=== PATIENT | male | born 1940 | race Caucasian/White ===

== ENCOUNTER 2018-06-27 08:10 | Emergency (ER) | payer MEDICARE, SELFPAY ==
[2018-06-27] VITALS (18 sets, daily range): BP systolic 143–192; BP diastolic 84–132; PULSE 71–100; RESP 14; TEMP 36.5; O2SAT 84–99
--- NOTE | 2018-06-27 08:41 | W.ED.GENAD ---
Discharge Plan Disposition Patient Disposition: HOME Condition: Improving Discharge Details Chief Complaint: GenMedical Clinical Impression: Hematuria Primary Care Provider: [facility] Lane ED Provider: Romel Cornelius Discharge Instructions Instructions: Hematuria (ED) Additional Instructions: Return for inability to urinate, the development of fever or any other concerns. Followup with Urology tomorrow as discussed with them. Medical Decision Making 78-year-old male presents with history of distant bladder cancer status post radiation therapy and history of intermittent episodes of bleeding over years time. Now with recurrent episodes intermittently over weeks time and worse over 2 days. He is afebrile and slightly hypertensive on exam. States he no longer takes medications including no longer use of metoprolol. He states that he has otherwise recently been well. Differential diagnosis includes acute cystitis, varicosity, mass, renal colic. Patient IV access established, referred for CT urogram and lab. Diagnostic laboratory essentially unremarkable with hematocrit of 46. Renal function shows creatinine of 1.0. Urinalysis is notable primarily for red blood cells. CT images reveal filling defect of bladder. Case discussed with on-call Urology, Emely Lopez. She agrees with urgent followup and patient seen in the ED. Lab Data Lab results reviewed: Yes I reviewed the patient's lab results. Laboratory Tests Range/Units 06/27/18 06/27/18 06/27/18 09:05 09:05 09:05 WBC (4.4-10.8) k/cumm 5.78 RBC (4.50-6.00) m/cumm 5.32 Hgb (13.5-17.5) g/dL 15.9 Hct (40.0-50.0) % 46.5 MCV (80-95) fL 87.4 MCH (27.0-33.0) pg 29.9 MCHC (32.0-36.0) g/dL 34.2 RDW (11.8-14.1) % 13.5 Plt Count (130-400) x1000/uL 211 MPV (8.0-11.0) fL 9.3 Immature Gran % 0.2 Neutrophils % 73.1 Lymphocytes % 18.0 Monocytes % 7.6 Eosinophils % 0.9 Basophils % 0.2 Absolute Neutrophils (1.2-6.7) k/cumm 4.23 Absolute Lymphocytes (1.2-3.4) k/cumm 1.04 L Absolute Monocytes (0.11-0.7) k/cumm 0.44 Absolute Eosinophils (0.0-0.7) k/cumm 0.05 Absolute Basophils (0.0-0.2) k/cumm 0.01 PT (9.3-10.8) sec 11.0 H INR (1.0-3.5) 1.1 Sodium (136-145) mmol/L 138 Potassium (3.5-5.1) mmol/L 3.8 Chloride (98-107) mmol/L 102 Carbon Dioxide (21.0-32.0) mmol/L 26.1 Anion Gap (3-11) mmol/L 9.9 BUN (7-18) mg/dL 19 H Creatinine (0.70-1.30) mg/dL 1.03 Estimated GFR/1.73 m2 (mL/min/1.73m2) >= 60.00 Glucose (70-100) mg/dL 97 Calcium (8.5-10.1) mg/dL 8.7 Total Bilirubin (0.2-1.0) mg/dL 0.6 AST (15-37) U/L 26 ALT (12-78) U/L 31 Alkaline Phosphatase (46-116) U/L 62 Total Protein (6.4-8.2) g/dL 7.2 Albumin (3.4-5.0) g/dL 3.4 HPI General Mode of arrival: ambulatory. Date/Time Provider Initiated Documentation: 06/27/18 08:14. Limitations to Documentation: no limitations. History of Present Illness 78 year old M presents to the emergency department with the chief complaint of Hematuria, described as moderate, and is localized to the pelvis and genitals. Patient reports no radiation. Patient started experiencing this day(s) and it has been intermittent. No relieving factors improve symptom(s), No exacerbating factors reported . Patient notes no other symptoms.. HPI Narrative: 78-year-old male with history of bladder cancer distantly, status post radiation therapy. He also has a history of bleed, most significantly when taking Plavix. He states that over months time he said intermittent episodes of bleeding/hematuria, often brought on by activity such as riding on a tractor. They have been intermittent and self resolved. Now with a day and a half intermittent episodes of bright red blood and clots in the urine. He has had mild weakness. No chest pain or lightheadedness. No syncope. Has not had a fever. Related Data Allergies Allergy/AdvReac Type Severity Reaction Status Date / Time No Known Allergies Allergy Unverified 06/27/18 08:25 General Stated Complaint: GenMedical CAROLINE: 3 Review of Systems Review of Systems 01/21 reviewed and otherwise neg PFSH Social History Smoking/Tobacco Use Status: Former Tobacco Use Exam Narrative Exam Narrative: GEN: awake, alert, oriented 3. Pleasant, well groomed, interactive. HEAD: Normocephalic, atraumatic ENT: Mucous membranes moist, oropharynx unremarkable, External ear exam unremarkable EYES: PERRL, EOMI NECK: Full ROM, no ALEX, no menigismus CHEST/RESP: Nontender, clear to auscultation bilateral, no wheeze/rhonchi/rales CARDIOVASCULAR: RRR, no murmur, rub nyla. 2+ Rad pulse bilateral ABDOMEN: Soft, nontender, no mass. +Bowel sounds EXT: Full ROM, no edema, no rash Neuro: Grossly normal neurologic exam, conversant, interactive. Psych: Speech fluent, thoughts congruent, affect normal Course Vital Signs Temperature 36.5 C 06/27/18 08:21 Pulse 92 H 06/27/18 08:21 Respiratory Rate 14 06/27/18 08:21 Blood Pressure 151/104 H 06/27/18 08:21 Pulse Oximetry 98 06/27/18 08:21 Temperature 36.5 C 06/27/18 08:21 Temperature Source Temporal Artery Scan 06/27/18 08:21 Pulse 92 H 06/27/18 08:21 Respiratory Rate 14 06/27/18 08:21 Respiratory Effort 06/27/18 08:27 Blood Pressure 151/104 H 06/27/18 08:21 Blood Pressure Position Sitting 06/27/18 08:21 Pulse Oximetry 98 06/27/18 08:21 Oxygen Delivery Method Room Air 06/27/18 08:21 Oxygen Flow Rate 0 06/27/18 08:21 Pain Level 6 06/27/18 08:21
--- NOTE | 2018-06-27 08:44 | ED.GENADUL_ITS ---
Discharge Plan Disposition Patient Disposition: HOME Condition: Improving Discharge Details Chief Complaint: GenMedical Clinical Impression: Hematuria Primary Care Provider: [facility] Lane ED Provider: Romel Cornelius Discharge Instructions Instructions: Hematuria (ED) Additional Instructions: Return for inability to urinate, the development of fever or any other concerns. Followup with Urology tomorrow as discussed with them. Medical Decision Making 78-year-old male presents with history of distant bladder cancer status post radiation therapy and history of intermittent episodes of bleeding over years time. Now with recurrent episodes intermittently over weeks time and worse over 2 days. He is afebrile and slightly hypertensive on exam. States he no longer takes medications including no longer use of metoprolol. He states that he has otherwise recently been well. Differential diagnosis includes acute cystitis, varicosity, mass, renal colic. Patient IV access established, referred for CT urogram and lab. Diagnostic laboratory essentially unremarkable with hematocrit of 46. Renal function shows creatinine of 1.0. Urinalysis is notable primarily for red blood cells. CT images reveal filling defect of bladder. Case discussed with on-call Urology , Emely Lopez. She agrees with urgent followup and patient seen in the ED. Lab Data Lab results reviewed: Yes I reviewed the patient's lab results. Laboratory Tests Range/Units 06/27/18 06/27/18 06/27/18 09:05 09:05 09:05 WBC (4.4-10.8) k/cumm 5.78 RBC (4.50-6.00) m/cumm 5.32 Hgb (13.5-17.5) g/dL 15.9 Hct (40.0-50.0) % 46.5 MCV (80-95) fL 87.4 MCH (27.0-33.0) pg 29.9 MCHC (32.0-36.0) g/dL 34.2 RDW (11.8-14.1) % 13.5 Plt Count (130-400) x1000/uL 211 MPV (8.0-11.0) fL 9.3 Immature Gran % 0.2 Neutrophils % 73.1 Lymphocytes % 18.0 Monocytes % 7.6 Eosinophils % 0.9 Basophils % 0.2 Absolute Neutrophils (1.2-6.7) k/cumm 4.23 Absolute Lymphocytes (1.2-3.4) k/cumm 1.04 L Absolute Monocytes (0.11-0.7) k/cumm 0.44 Absolute Eosinophils (0.0-0.7) k/cumm 0.05 Absolute Basophils (0.0-0.2) k/cumm 0.01 PT (9.3-10.8) sec 11.0 H INR (1.0-3.5) 1.1 Sodium (136-145) mmol/L 138 Potassium (3.5-5.1) mmol/L 3.8 Chloride (98-107) mmol/L 102 Carbon Dioxide (21.0-32.0) mmol/L 26.1 Anion Gap (3-11) mmol/L 9.9 BUN (7-18) mg/dL 19 H Creatinine (0.70-1.30) mg/dL 1.03 Estimated GFR/1.73 m2 (mL/min/1.73m2) >= 60.00 Glucose (70-100) mg/dL 97 Calcium (8.5-10.1) mg/dL 8.7 Total Bilirubin (0.2-1.0) mg/dL 0.6 AST (15-37) U/L 26 ALT (12-78) U/L 31 Alkaline Phosphatase (46-116) U/L 62 Total Protein (6.4-8.2) g/dL 7.2 Albumin (3.4-5.0) g/dL 3.4 HPI General Mode of arrival: ambulatory . Date/Time Provider Initiated Documentation: 06/27/18 08:14 . Limitations to Documentation: no limitations . History of Present Illness 78 year old M presents to the emergency department with the chief complaint of Hematuria, described as moderate, and is localized to the pelvis and genitals. Patient reports no radiation. Patient started experiencing this day(s) and it has been intermittent. No relieving factors improve symptom(s) , No exacerbating factors reported . Patient notes no other symptoms.. HPI Narrative: 78-year-old male with history of bladder cancer distantly, status post radiation therapy. He also has a history of bleed, most significantly when taking Plavix. He states that over months time he said intermittent episodes of bleeding/hematuria, often brought on by activity such as riding on a tractor. They have been intermittent and self resolved. Now with a day and a half intermittent episodes of bright red blood and clots in the urine. He has had mild weakness. No chest pain or lightheadedness. No syncope. Has not had a fever. Related Data Allergies Allergy/AdvReac Type Severity Reaction Status Date / Time No Known Allergies Allergy Unverified 06/27/18 08:25 General Stated Complaint: GenMedical CAROLINE: 3 Review of Systems Review of Systems 01/21 reviewed and otherwise neg PFSH Social History Smoking/Tobacco Use Status: Former Tobacco Use Exam Narrative Exam Narrative: GEN: awake, alert, oriented 3. Pleasant, well groomed, interactive. HEAD: Normocephalic, atraumatic ENT: Mucous membranes moist, oropharynx unremarkable, External ear exam unremarkable EYES: PERRL, EOMI NECK: Full ROM, no ALEX, no menigismus CHEST/RESP: Nontender, clear to auscultation bilateral, no wheeze/rhonchi/rales CARDIOVASCULAR: RRR, no murmur, rub nyla. 2+ Rad pulse bilateral ABDOMEN: Soft, nontender, no mass. +Bowel sounds EXT: Full ROM, no edema, no rash Neuro: Grossly normal neurologic exam, conversant, interactive. Psych: Speech fluent, thoughts congruent, affect normal Course Vital Signs Temperature 36.5 C 06/27/18 08:21 Pulse 92 H 06/27/18 08:21 Respiratory Rate 14 06/27/18 08:21 Blood Pressure 151/104 H 06/27/18 08:21 Pulse Oximetry 98 06/27/18 08:21 Temperature 36.5 C 06/27/18 08:21 Temperature Source Temporal Artery Scan 06/27/18 08:21 Pulse 92 H 06/27/18 08:21 Respiratory Rate 14 06/27/18 08:21 Respiratory Effort 06/27/18 08:27 Blood Pressure 151/104 H 06/27/18 08:21 Blood Pressure Position Sitting 06/27/18 08:21 Pulse Oximetry 98 06/27/18 08:21 Oxygen Delivery Method Room Air 06/27/18 08:21 Oxygen Flow Rate 0 06/27/18 08:21 Pain Level 6 06/27/18 08:21
[2018-06-27 09:17] LABS: Abs Immature Grans 0.01 k/cumm (0.0-0.09); Absolute Basophil Count 0.01 k/cumm (0.0-0.2); Absolute Eosinophil Count 0.05 k/cumm (0.0-0.7); Absolute Lymphocyte Count 1.04 k/cumm (1.2-3.4); Absolute Monocyte Count 0.44 k/cumm (0.11-0.7); Absolute Neutrophil Count 4.23 k/cumm (1.2-6.7); Basophils % 0.2; Eosinophils % 0.9; HCT 46.5 % (40.0-50.0); HGB 15.9 g/dL (13.5-17.5); Immature Grans % 0.2; Mean Corp. HGB Concentration 34.2 g/dL (32.0-36.0); Mean Corpuscular Hemoglobin 29.9 pg (27.0-33.0); Mean Corpuscular Volume 87.4 fL (80-95); Mean Platelet Volume 9.3 fL (8.0-11.0); Monocytes % 7.6; Neutrophils % 73.1; Platelet Count 211 x1000/uL (130-400); RBC 5.32 m/cumm (4.50-6.00); RBC Distribution Width 13.5 % (11.8-14.1); White Blood Cell Count 5.78 k/cumm (4.4-10.8)
[2018-06-27 09:27] LABS: INR 1.1 (1.0-3.5)
[2018-06-27 09:28] LABS: ALT 31 U/L (12-78); AST 26 U/L (15-37); Albumin 3.4 g/dL (3.4-5.0); Alkaline Phosphatase 62 U/L (46-116); Anion Gap 9.9 mmol/L (3-11); BUN 19 mg/dL (7-18); Bilirubin, Total 0.6 mg/dL (0.2-1.0); CO2 26.1 mmol/L (21.0-32.0); CREATININE 1.03 mg/dL (0.70-1.30); Calcium 8.7 mg/dL (8.5-10.1); Chloride 102 mmol/L (98-107); Glucose 97 mg/dL (70-100); Potassium 3.8 mmol/L (3.5-5.1); Sodium 138 mmol/L (136-145); Total Protein 7.2 g/dL (6.4-8.2)
[2018-06-27 10:05] LABS: Bilirubin Negative (Negative); Blood Large (Negative); Clarity Cloudy; Glucose Negative (Negative); Ketones Negative (Negative); Leukocyte Esterase Negative (Negative); Nitrite Negative (Negative); Specific Gravity 1.015 (1.005-1.025); Urobilinogen 0.2 EU/dL (Up TO 0.2); pH 8.5 (5-8)
[2018-06-27 10:09] LABS: RBC >50 (0-2)
[2018-06-27 10:10] LABS: C & S Indicated? No
--- NOTE | 2018-06-27 10:14 | DI.CT_ITS ---
SYMPTOMS/DIAGNOSIS: HEMATURIA, PREVIOUS H/O PROSTATE CA TREATED WITH RADIATION 5-[address] UROGRAM: CT urogram protocol was performed with noncontrast CT as well as venous phase and 7-minute delay phase abdominal and pelvic CT following intravenous infusion of 100 cc of Omnipaque 350. There is no evidence of urinary tract calcification. Images obtained through the lung bases show nonspecific interstitial prominence , presumably chronic. There are multiple low attenuation hepatic lesions consistent with cysts. The largest lesion is a left lobe hepatic lesion measuring about 21 mm in greatest diameter, which was significantly smaller on previous CT of October 2011. Additional CT recommended in six months to assess stability of this lesion. This does not appear to enhance on delay phase imaging. Spleen and pancreas are unremarkable. Gallbladder and bile ducts appear normal. Abdominal aorta is of normal diameter and no major vascular abnormality is seen. Small left fat-containing inguinal hernia noted. No significant abdominal or pelvic adenopathy seen. Appendix appears normal. No evidence of diverticulitis. No evidence of bowel obstruction. Adrenals appear normal bilaterally. There is symmetrical prompt renal cortical enhancement bilaterally. Multiple apparent tiny renal cortical cysts are noted. There is no evidence of hydronephrosis, nephrolithiasis or renal mass. Ureters are unremarkable in appearance. There is an irregular soft tissue density mass of the dependent portion of the urinary bladder, which may represent clot versus mass. Prostate is enlarged and the patient appears to have prostatic radiotherapy seeds in place. CONCLUSION: Intraluminal filling defect of the bladder in a patient with known gross hematuria, bladder wall mass versus thrombus. Correlation with cystoscopy recommended. No additional urinary tract findings.
[2018-06-27] MEDS: Omnipaque 350 MG/ML 100 ML BTL IJ (10:16)
[2018-06-27] MEDS: Lactated Ringers 1,000 ML 125 ML IV (10:22)
--- NOTE | 2018-06-27 12:17 | NUR.NOTE ---
Urology is at the bedside.
--- NOTE | 2018-06-28 08:05 | W.UROLOGYCON ---
Date of service: 06/27/18 Time of Service: 13:00 History of Present Illness Chief Complaint: Gross hematuria Narrative: Mr Boateng is an 78-year-old male in seen currently in the emergency room by Dr. Cornelius. Dr. Cornelius asks that I consult about his gross hematuria and his CT imaging. Patient reports that he is a individual who has a history of prostate cancer that over the past few months has had some intermittent bleeding pink tinge to his urine especially after being off of a tractor. However over the last few days he has had gross hematuria in the form of clots. No retention reported. He denies fevers, chills, abnormal weight loss, abdominal pain, or long bone pain. He notes that he was originally treated for his prostate cancer through [facility] in [place]. 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 Reviewed elsewhere in the chart Medications Reviewed elsewhere in the chart -reports he has not taken any prescribed medications for at least the last 2 months and has not used ASA or NSAIDs Family Hx No family history of urological matters Consults Consult date: 06/27/18 Requesting physician: Romel Cornelius Review of Systems Constitutional Denies chills, Denies fatigue, Denies fever(s) and Denies weight loss Cardiovascular Denies chest pain and Denies dyspnea Respiratory Denies dyspnea Gastrointestinal Denies abdominal pain, Denies constipation and Denies diarrhea Genitourinary Reports hematuria, Denies dysuria, Denies flank pain, Denies nocturia, Reports urinary frequency, Reports urinary hesitancy, Denies urinary incontinence and Reports urinary urgency Endocrine Denies fatigue [facility] Social History Smoking/Tobacco Use Status: Former Tobacco Use Exam Const Orientation: alert, awake and oriented x3 Eyes Sclera: sclerae normal Resp Effort & Inspection: normal respiratory effort GI Inspection: normal to inspection and non-distended Results Last Vital Signs Temp 97.7 F 06/27/18 08:21 Pulse 86 06/27/18 12:16 Resp 14 06/27/18 08:21 BP 192/91 H 06/27/18 12:16 Pulse Ox 99 06/27/18 12:20 Labs : 06/27/18 09:05 11/14/18 09:05 Laboratory Results - last 24 hr 06/27/18 06/27/18 06/27/18 09:05 09:05 09:05 WBC 5.78 RBC 5.32 Hgb 15.9 Hct 46.5 MCV 87.4 MCH 29.9 MCHC 34.2 RDW 13.5 Plt Count 211 MPV 9.3 Immature Gran % 0.2 Neutrophils % 73.1 Lymphocytes % 18.0 Monocytes % 7.6 Eosinophils % 0.9 Basophils % 0.2 Absolute Neutrophils 4.23 Absolute Lymphocytes 1.04 L Absolute Monocytes 0.44 Absolute Eosinophils 0.05 Absolute Basophils 0.01 PT 11.0 H INR 1.1 Sodium 138 Potassium 3.8 Chloride 102 Carbon Dioxide 26.1 Anion Gap 9.9 BUN 19 H Creatinine 1.03 Estimated GFR/1.73 m2 >= 60.00 Glucose 97 Calcium 8.7 Total Bilirubin 0.6 AST 26 ALT 31 Alkaline Phosphatase 62 Total Protein 7.2 Albumin 3.4 Urine Color Urine Clarity Urine pH Ur Specific [place] Urine Protein Urine Ketones Urine Blood Urine Nitrite Urine Bilirubin Urine Urobilinogen Ur Leukocyte Esterase Urine RBC Urine WBC Ur Epithelial Cells Urine Crystals Urine Bacteria Urine Mucus Ur Culture Indicated? Urine Glucose Patient ABO/Rh Antibody Screen 06/27/18 06/27/18 09:05 09:45 WBC RBC Hgb Hct MCV MCH MCHC RDW Plt Count MPV Immature Gran % Neutrophils % Lymphocytes % Monocytes % Eosinophils % Basophils % Absolute Neutrophils Absolute Lymphocytes Absolute Monocytes Absolute Eosinophils Absolute Basophils PT INR Sodium Potassium Chloride Carbon Dioxide Anion Gap BUN Creatinine Estimated GFR/1.73 m2 Glucose Calcium Total Bilirubin AST ALT Alkaline Phosphatase Total Protein Albumin Urine Color Red Urine Clarity Cloudy Urine pH 8.5 H Ur Specific [place] 1.015 Urine Protein >=300 H Urine Ketones Negative Urine Blood Large H Urine Nitrite Negative Urine Bilirubin Negative Urine Urobilinogen 0.2 Ur Leukocyte Esterase Negative Urine RBC >50 H Urine WBC Ur Epithelial Cells Urine Crystals Urine Bacteria Urine Mucus Ur Culture Indicated? No Urine Glucose Negative Patient ABO/Rh O Positive Antibody Screen Negative Assessment and Plan (1) Gross hematuria: Current visit: No Status: Acute Greater than 50% of this 30 min consult was in counseling and coordination of the assessment/plan. Discussed with Romel and his partner that was present in the emergency room that his history of prostate cancer that was treated by radiation therapy can cause bladder cancer thus having a cystoscopy to determine the gross hematuria or questionable bladder wall mass versus thrombosis that was found on CT needs to be performed. Also we discussed that the filling defect of the bladder needs to be evaluated. He is interested in doing this as soon as possible. We were able to offer him an outpatient OR procedure time for tomorrow , June 28. Preop paperwork was completed and nurse to add him to the scheduling block per Dr. Bonner tomorrow. Dr. Cornelius the emergency room physician was notified of our discussion and plans on discharging the patient since he is stable without retention. I did discuss with patient of when he needs to come back to the emergency room for acute matters that cannot wait till tomorrow's procedure.
--- NOTE | 2018-06-28 08:17 | UCONE_ITS ---
Date of service: 06/27/18 Time of Service: 13:00 History of Present Illness Chief Complaint: Gross hematuria Narrative: Mr Boateng is an 78-year-old male in seen currently in the emergency room by Dr. Cornelius. Dr. Cornelius asks that I consult about his gross hematuria and his CT imaging. Patient reports that he is a individual who has a history of prostate cancer that over the past few months has had some intermittent bleeding pink tinge to his urine especially after being off of a tractor. However over the last few days he has had gross hematuria in the form of clots. No retention reported. He denies fevers, chills, abnormal weight loss, abdominal pain, or long bone pain. He notes that he was originally treated for his prostate cancer through [facility] in [place]. 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 Reviewed elsewhere in the chart Medications Reviewed elsewhere in the chart -reports he has not taken any prescribed medications for at least the last 2 months and has not used ASA or NSAIDs Family Hx No family history of urological matters Consults Consult date: 06/27/18 Requesting physician: Romel Cornelius Review of Systems Constitutional Denies chills, Denies fatigue, Denies fever(s) and Denies weight loss Cardiovascular Denies chest pain and Denies dyspnea Respiratory Denies dyspnea Gastrointestinal Denies abdominal pain, Denies constipation and Denies diarrhea Genitourinary Reports hematuria, Denies dysuria, Denies flank pain, Denies nocturia, Reports urinary frequency, Reports urinary hesitancy, Denies urinary incontinence and Reports urinary urgency Endocrine Denies fatigue [facility] Social History Smoking/Tobacco Use Status: Former Tobacco Use Exam Const Orientation: alert, awake and oriented x3 Eyes Sclera: sclerae normal Resp Effort & Inspection: normal respiratory effort GI Inspection: normal to inspection and non-distended Results Last Vital Signs Temp 97.7 F 06/27/18 08:21 Pulse 86 06/27/18 12:16 Resp 14 06/27/18 08:21 BP 192/91 H 06/27/18 12:16 Pulse Ox 99 06/27/18 12:20 Labs : 06/27/18 09:05 11/14/18 09:05 Laboratory Results - last 24 hr 06/27/18 06/27/18 06/27/18 09:05 09:05 09:05 WBC 5.78 RBC 5.32 Hgb 15.9 Hct 46.5 MCV 87.4 MCH 29.9 MCHC 34.2 RDW 13.5 Plt Count 211 MPV 9.3 Immature Gran % 0.2 Neutrophils % 73.1 Lymphocytes % 18.0 Monocytes % 7.6 Eosinophils % 0.9 Basophils % 0.2 Absolute Neutrophils 4.23 Absolute Lymphocytes 1.04 L Absolute Monocytes 0.44 Absolute Eosinophils 0.05 Absolute Basophils 0.01 PT 11.0 H INR 1.1 Sodium 138 Potassium 3.8 Chloride 102 Carbon Dioxide 26.1 Anion Gap 9.9 BUN 19 H Creatinine 1.03 Estimated GFR/1.73 m2 >= 60.00 Glucose 97 Calcium 8.7 Total Bilirubin 0.6 AST 26 ALT 31 Alkaline Phosphatase 62 Total Protein 7.2 Albumin 3.4 Urine Color Urine Clarity Urine pH Ur Specific [place] Urine Protein Urine Ketones Urine Blood Urine Nitrite Urine Bilirubin Urine Urobilinogen Ur Leukocyte Esterase Urine RBC Urine WBC Ur Epithelial Cells Urine Crystals Urine Bacteria Urine Mucus Ur Culture Indicated? Urine Glucose Patient ABO/Rh Antibody Screen 06/27/18 06/27/18 09:05 09:45 WBC RBC Hgb Hct MCV MCH MCHC RDW Plt Count MPV Immature Gran % Neutrophils % Lymphocytes % Monocytes % Eosinophils % Basophils % Absolute Neutrophils Absolute Lymphocytes Absolute Monocytes Absolute Eosinophils Absolute Basophils PT INR Sodium Potassium Chloride Carbon Dioxide Anion Gap BUN Creatinine Estimated GFR/1.73 m2 Glucose Calcium Total Bilirubin AST ALT Alkaline Phosphatase Total Protein Albumin Urine Color Red Urine Clarity Cloudy Urine pH 8.5 H Ur Specific [place] 1.015 Urine Protein >=300 H Urine Ketones Negative Urine Blood Large H Urine Nitrite Negative Urine Bilirubin Negative Urine Urobilinogen 0.2 Ur Leukocyte Esterase Negative Urine RBC >50 H Urine WBC Ur Epithelial Cells Urine Crystals Urine Bacteria Urine Mucus Ur Culture Indicated? No Urine Glucose Negative Patient ABO/Rh O Positive Antibody Screen Negative Assessment and Plan (1) Gross hematuria: Current visit: No Status: Acute Greater than 50% of this 30 min consult was in counseling and coordination of the assessment/plan. Discussed with Romel and his partner that was present in the emergency room that his history of prostate cancer that was treated by radiation therapy can cause bladder cancer thus having a cystoscopy to determine the gross hematuria or questionable bladder wall mass versus thrombosis that was found on CT needs to be performed. Also we discussed that the filling defect of the bladder needs to be evaluated. He is interested in doing this as soon as possible. We were able to offer him an outpatient OR procedure time for tomorrow , June 28. Preop paperwork was completed and nurse to add him to the scheduling block per Dr. Bonner tomorrow. Dr. Cornelius the emergency room physician was notified of our discussion and plans on discharging the patient since he is stable without retention. I did discuss with patient of when he needs to come back to the emergency room for acute matters that cannot wait till tomorrow's procedure.
== END 2018-06-27 12:42 | disposition home or self-care (01) ==
PROVIDERS: Emergency Provider Emergency Medicine; PCP Nurse Practitioner Family
DX: R31.9 Hematuria, unspecified (principal); R93.41 Abnormal radiologic findings on diagnostic imaging of renal pelvis, ureter, or bladder; Z85.51 Personal history of malignant neoplasm of bladder; I10 Essential (primary) hypertension
CPT/HCPCS: 36415; 80053; 86850; 86900; 86901; 96360; 96361; 99285; 74178; 81003; 81015; 85025; 85610; 99284; J3490

== ENCOUNTER 2018-06-27 16:26 | Emergency (ER) | payer MEDICARE, BC, SELFPAY ==
--- NOTE | 2018-06-27 16:33 | W.ED.GENAD ---
Discharge Plan Disposition Patient Disposition: HOME Condition: Improving Discharge Details Chief Complaint: Urinary Clinical Impression: Hematuria Reason For Visit: unable to void Primary Care Provider: [facility] Lane ED Provider: Romel Cornelius Discharge Instructions Instructions: Hematuria (ED) Additional Instructions: I discussed your case with Dr. Bonner this evening. He recommends that you return for recurrent inability to urinate, otherwise we will discharge you to home and plan on you returning for your operation in the morning. Medical Decision Making 78-year-old male presents to the ER after visit with myself this morning for recurrent hematuria. In the earlier visit the patient had laboratories, CT urogram, and a urology consult with plan for outpatient evaluation in the OR tomorrow morning with Dr. Bonner. This afternoon he developed urinary retention that resolved with production of a bloody urine. He arrives improved, with mild hypertension, and approximately 200-250 cc urinary retention. The patient no longer has urge to urinate. I discussed the case with Dr. Bonner and we reviewed the earlier diagnostic studies. He recommends no further intervention at this time. Patient will return for recurrent urinary retention or any other acute concerns, he will otherwise present for scheduled outpatient surgery tomorrow. HPI General Mode of arrival: ambulatory. Date/Time Provider Initiated Documentation: 06/27/18 16:32. Limitations to Documentation: no limitations. Information obtained by: patient. History of Present Illness 78 year old M presents to the emergency department with the chief complaint of Transient urinary retention, described as moderate, Quality is described as dull, and is localized to the abdomen. Patient reports no radiation. and it has been intermittent and now resolved. other things that improve symptom(s), (Urination) No exacerbating factors reported . HPI Narrative: Pleasant 78-year-old male seen earlier in the day by myself with hematuria. He had a workup including laboratory, CT urogram, urology consult and has been scheduled for outpatient cystoscopy in the OR tomorrow. He states that this afternoon he developed transient urinary retention with cramping lower abdominal pain that resolved after he was able to urinate. He now feels improved Related Data Allergies Allergy/AdvReac Type Severity Reaction Status Date / Time No Known Allergies Allergy Unverified 06/27/18 08:25 General CAROLINE: 3 Review of Systems Review of Systems For systems reviewed and otherwise negative Exam Narrative Exam Narrative: GEN: awake, alert, oriented 3. Pleasant, well groomed, interactive. HEAD: Normocephalic, atraumatic ENT: Mucous membranes moist, oropharynx unremarkable, External ear exam unremarkable EYES: PERRL, EOMI NECK: Full ROM, no ALEX, no menigismus CHEST/RESP: Nontender, clear to auscultation bilateral, no wheeze/rhonchi/rales CARDIOVASCULAR: RRR, no murmur, rub nyla. 2+ Rad pulse bilateral ABDOMEN: Soft, nontender, no mass. +Bowel sounds EXT: Full ROM, no edema, no rash Neuro: Grossly normal neurologic exam, conversant, interactive. Psych: Speech fluent, thoughts congruent, affect normal
[2018-06-27 16:36] VITALS: BP 179/100; PULSE 78; RESP 18; TEMP 36.3; O2SAT 99
--- NOTE | 2018-06-27 16:36 | ED.GENADUL_ITS ---
Discharge Plan Disposition Patient Disposition: HOME Condition: Improving Discharge Details Chief Complaint: Urinary Clinical Impression: Hematuria Reason For Visit: unable to void Primary Care Provider: [facility] Lane ED Provider: Romel Cornelius Discharge Instructions Instructions: Hematuria (ED) Additional Instructions: I discussed your case with Dr. Bonner this evening. He recommends that you return for recurrent inability to urinate, otherwise we will discharge you to home and plan on you returning for your operation in the morning. Medical Decision Making 78-year-old male presents to the ER after visit with myself this morning for recurrent hematuria. In the earlier visit the patient had laboratories, CT urogram, and a urology consult with plan for outpatient evaluation in the OR tomorrow morning with Dr. Bonner. This afternoon he developed urinary retention that resolved with production of a bloody urine. He arrives improved, with mild hypertension, and approximately 200-250 cc urinary retention. The patient no longer has urge to urinate. I discussed the case with Dr. Bonner and we reviewed the earlier diagnostic studies. He recommends no further intervention at this time. Patient will return for recurrent urinary retention or any other acute concerns, he will otherwise present for scheduled outpatient surgery tomorrow. HPI General Mode of arrival: ambulatory . Date/Time Provider Initiated Documentation: 06/27/18 16:32 . Limitations to Documentation: no limitations . Information obtained by: patient . History of Present Illness 78 year old M presents to the emergency department with the chief complaint of Transient urinary retention, described as moderate, Quality is described as dull, and is localized to the abdomen. Patient reports no radiation. and it has been intermittent and now resolved. other things that improve symptom(s ), (Urination) No exacerbating factors reported . HPI Narrative: Pleasant 78-year-old male seen earlier in the day by myself with hematuria. He had a workup including laboratory, CT urogram, urology consult and has been scheduled for outpatient cystoscopy in the OR tomorrow. He states that this afternoon he developed transient urinary retention with cramping lower abdominal pain that resolved after he was able to urinate. He now feels improved Related Data Allergies Allergy/AdvReac Type Severity Reaction Status Date / Time No Known Allergies Allergy Unverified 06/27/18 08:25 General CAROLINE: 3 Review of Systems Review of Systems For systems reviewed and otherwise negative Exam Narrative Exam Narrative: GEN: awake, alert, oriented 3. Pleasant, well groomed, interactive. HEAD: Normocephalic, atraumatic ENT: Mucous membranes moist, oropharynx unremarkable, External ear exam unremarkable EYES: PERRL, EOMI NECK: Full ROM, no ALEX, no menigismus CHEST/RESP: Nontender, clear to auscultation bilateral, no wheeze/rhonchi/rales CARDIOVASCULAR: RRR, no murmur, rub nyla. 2+ Rad pulse bilateral ABDOMEN: Soft, nontender, no mass. +Bowel sounds EXT: Full ROM, no edema, no rash Neuro: Grossly normal neurologic exam, conversant, interactive. Psych: Speech fluent, thoughts congruent, affect normal
[2018-06-27 17:00] VITALS: BP 180/95; PULSE 78; RESP 15; TEMP 37; O2SAT 98
== END 2018-06-27 17:34 | disposition home or self-care (01) ==
PROVIDERS: Emergency Provider Emergency Medicine; PCP Nurse Practitioner Family
DX: R31.9 Hematuria, unspecified (principal)
CPT/HCPCS: 36415; 80053; 86850; 86900; 86901; 96360; 96361; 99281; 99285; 74178; 81003; 81015; 85025; 85610; 99284; J3490

== ENCOUNTER 2018-06-28 09:39 | Day surgery (SDC) | payer MEDICARE, BC, SELFPAY ==
[2018-06-28 10:00] VITALS: BP 169/78; PULSE 78; RESP 16; TEMP 36.8; O2SAT 100
[2018-06-28] MEDS: Lactated Ringers 1,000 ML 80 ML IV (10:40)
[2018-06-28] MEDS: CIPROFLOXACIN 400 MG/200 ML BAG 200 MG IVPB (11:32)
--- NOTE | 2018-06-28 11:57 | W.PM.HP.N ---
Date of service: 06/28/18 Time of Service: 11:57 Assessment and Plan (1) Clot retention of urine: Current visit: Yes Status: Acute We will proceed with cystoscopy and clot evacuation. If we see any abnormality that might lead to recurrent bleeding and clots, we will either biopsy, resecte or fulgurate that area. History of Present Illness Chief Complaint: Clot retention Narrative: This is an 78-year-old gentleman who has a history of adenocarcinoma of the prostate. He was treated with external beam radiation about 14 years ago. His PSA has remained stable since then. He has had intermittent gross hematuria especially after riding on a tractor or riding mower. More recently, he developed clot retention. He had difficulty emptying his bladder but ultimately was able to pass large amounts of clots. He was seen in the emergency room. He had a CT urogram which demonstrated a filling defect within the bladder. He presents now for cystoscopy with clot evacuation. If we find a mucosal base filling defect in the bladder we will resected or cauterized. He is not on any type of any coagulants. He is a past smoker but quit over 20 years ago Review of Systems Review of Systems No fevers or chills No dysphasia. He has double vision and decreased depth perception from the left eye No diabetes or thyroid dysfunction No shortness of breath, cough or hemoptysis No chest pain or palpitations No nausea, vomiting, hepatitis, ulcers, jaundice, diarrhea or constipation No seizures, strokes or peripheral neuropathy. He does have of dizziness that he attributes to his visual difficulty No bleeding disorders or anemia No gout or arthralgia Meds Allergies Allergy/AdvReac Type Severity Reaction Status Date / Time No Known Allergies Allergy Unverified 06/27/18 08:25 Exam Narrative Exam Narrative: He is a very pleasant gentleman in no current distress. He is cooperative with the exam. Skin is warm and dry. He does not appear septic or toxic His vital signs are documented elsewhere in the chart. His neck is supple with no masses. His lungs are clear Cardiac exam shows a regular rate but he is pacemaker dependent His abdomen is soft with no masses There is no edema in the lower extremities. No amputations or deformities are found He is awake, alert and oriented Results Last Vital Signs Temp 36.8 C 06/28/18 10:00 Pulse 78 06/28/18 10:00 Resp 16 06/28/18 10:00 BP 169/78 H 06/28/18 10:00 Pulse Ox 100 06/28/18 10:00
[2018-06-28] MEDS: Lidocaine 2% Jelly 6 ML SYR (12:56)
--- NOTE | 2018-06-28 13:16 | W.PM.DSUDISC ---
Discharge Plan Disposition Patient Disposition: HOME Condition: Stable Discharge Details Reason For Visit: GROSS HEMATURIA Attending Provider: David Bonner Primary Care Provider: Lizette Zamora V Discharge Instructions Additional Instructions: Tang to leg bag Drink lots of fluid F/U early next week to have catheter removed Activity:: Activity as Tolerated Diet:: As Tolerated Discharge Orders Discharge Orders: Discharge Order (Routine); Ordered 06/28/18 Ordered By: David Bonner DS: Diagnosis Discharge Diagnosis (1) Clot retention of urine: Status: Acute
[2018-06-28 14:10] VITALS: BP 150/86; PULSE 78; RESP 16; TEMP 36.7; O2SAT 99
--- NOTE | 2018-06-28 16:23 | ROE_ITS ---
DATE OF OPERATION: June 28, 2018 PREOPERATIVE DIAGNOSIS: Urinary clot retention. POSTOPERATIVE DIAGNOSIS: Urinary clot retention. PROCEDURE: Cystoscopy with clot evacuation. SURGEON: David Bonner M.D. ANESTHESIA: MAC with local. COMPLICATIONS: None. HISTORY: This is an 78-year-old gentleman who has a history of adenocarcinoma of the prostate. He h as been treated with external beam radiation in the past. He does have a distant history of a urinary tract infection that was related to urethral stricture di sease. He has had an internal urethrotomy about four years ago. Since that time his stream has been quite good. He has had intermittent gross hematuria, especially associated with physical activity. Yesterday he developed hematuria with clots. He was unable to void. He underwent a CT urogram through the [facility]. The scan showed normal kidneys but there was a large filling defect within the bladder con sistent with clot. He presents now for cystoscopy with clot evacuation and possible fulguration or r esection of any underlying bleeding or tumor. OPERATIVE REPORT: The patient was brought to the Operating Room on 06/28/18. He was given a dose of antibiotics. After successful induction of monitored anesthesia care, he was placed in the dorsal lithotomy positi on. His genitalia was prepped and draped. A 24 Serbian resectoscope sheath was passed through the urethra into the bladder. We used an internal visual obturator and found no evidence of residual stricture disease. Once the bladder neck was entered, we identified a moderate amount of clot. The clot was evacuated u sing a Cristian syringe. We then inspected the remainder of the bladder and found some diffuse erythema but no evidence of pap illary or nodular tumors. No active bleeding was found. We then filled the bladder with irrigant. We decided to leave a urethral catheter in place until the bleeding settles. We passed a guidewire through the sheath of the resectoscope and removed the scop e. We passed an 18 Serbian nondalton-tip catheter over the wire. We inflated the catheter balloon with 10 cc of sterile water and hooked the catheter to gravity drainage. He tolerated this procedure well with no complications. He will return to our office early next week to have his catheter removed. cc: Daphnie ZimmerP.
== END 2018-06-28 14:38 | disposition home or self-care (01) ==
PROVIDERS: PCP Family Medicine; Visit Provider Urology
PROC: 0TBB8ZZ Excision of Bladder, Via Natural or Artificial Opening Endoscopic (ICD-10-PCS; CPT 52001; principal; 2018-06-28 13:30)
DX: N32.89 Other specified disorders of bladder (principal); R31.9 Hematuria, unspecified; Z85.46 Personal history of malignant neoplasm of prostate; Z92.3 Personal history of irradiation
CPT/HCPCS: 52001; 36415; 51701; 80048; 96360; 99281; 99283; NC; 85025; 85610; 85730; J0744

== ENCOUNTER 2018-06-28 19:15 | Emergency (ER) | payer MEDICARE, BC, SELFPAY ==
--- NOTE | 2018-06-28 19:24 | W.ED.GENAD ---
Discharge Plan Disposition Disposition: HOME Condition: Good Discharge Details Chief Complaint: Urinary Clinical Impression: Perez catheter problem, Dehydration, Perez catheter in place Primary Care Provider: Lizette Zamora V ED Provider: Abraham Stevens Home Meds and New Rx's Prescriptions: No Action nitrofurantoin macrocrystal [Macrodantin] 50 mg capsule 50 mg PO DAILY Qty: 7 RF: 0 Discharge Instructions Instructions: Perez Catheter Placement and Care (ED) Medical Decision Making 78 yo male with hx of prostate cancer who had recently had urinary retention secondary to clots and required perez, who underwent cystoscopy today with Dr. Bonner which showed no recurrent tumors he could see and no active bleeding, d/c'd him with perez. He states it hasn't been draining since and has suprapubic discomfort. Has some bloody urine in his perez bag, will have nursing try to irrigate nursing flushed but did not have significant return of urine. Will give IVF and check for possible anthony, could have dehydration from the procedure he had today pt now having clear urine and has no complaints, will d/c home Differential Diagnosis clogged perez, hematuria Lab Data Lab results reviewed: Yes I reviewed the patient's lab results. HPI General Mode of arrival: ambulatory. Date/Time Provider Initiated Documentation: 06/28/18 19:16. Limitations to Documentation: no limitations. Information obtained by: patient. History of Present Illness 78 year old M presents to the emergency department with the chief complaint of perez not draining, Patient started experiencing this hour(s) (5) and it has been constant. No relieving factors improve symptom(s), Patient did receive the following treatments prior to arrival, none Related Data Home Medications Medication Instructions Recorded Confirmed nitrofurantoin macrocrystal 50 mg 50 mg PO DAILY #7 cap 06/28/18 06/28/18 capsule Previous Rx's Medication Instructions Recorded nitrofurantoin macrocrystal 50 mg 50 mg PO DAILY #7 cap 06/28/18 capsule Allergies Allergy/AdvReac Type Severity Reaction Status Date / Time No Known Allergies Allergy Unverified 06/28/18 19:39 General CAROLINE: 3 Review of Systems Review of Systems All systems reviewed & are unremarkable except as noted in HPI and below Constitutional Denies chills, Denies fever(s) and Denies weakness Eyes Denies loss of vision ENT Denies change in voice Cardiovascular Denies chest pain and Denies dyspnea Respiratory Denies dyspnea Gastrointestinal Denies nausea and Denies vomiting Genitourinary Denies dysuria Musculoskeletal Denies joint swelling Integumentary/Breasts Denies rash Neurologic Denies loss of vision and Denies weakness Psychiatric Denies depression Endocrine Denies cold intolerance and Denies heat intolerance Allergic/Immunologic Denies urticaria Exam Const General: no acute distress Orientation: alert HENMT Head: normal to inspection Ears: external ears normal General nose exam: external nose normal Mouth: moist mucous membranes Eyes General: appearance normal, both eyes and all related structures Neck Neck: normal visual inspection Resp Effort & Inspection: normal respiratory effort and able to speak in complete sentences Cardio Rate: regular rate Skin General skin exam: no rashes or lesions noted Neuro General: alert and oriented x3 Extrem General: normal to inspection Psych Mental Status: mental status grossly normal
--- NOTE | 2018-06-28 19:27 | ED.GENADUL_ITS ---
Discharge Plan Disposition Disposition: HOME Condition: Good Discharge Details Chief Complaint: Urinary Clinical Impression: Perez catheter problem, Dehydration, Perez catheter in place Primary Care Provider: Lizette Zamora V ED Provider: Abraham Stevens Home Meds and New Rx's Prescriptions: No Action nitrofurantoin macrocrystal [Macrodantin] 50 mg capsule 50 mg PO DAILY Qty: 7 RF: 0 Discharge Instructions Instructions: Perez Catheter Placement and Care (ED) Medical Decision Making 78 yo male with hx of prostate cancer who had recently had urinary retention secondary to clots and required perez, who underwent cystoscopy today with Dr. Bonner which showed no recurrent tumors he could see and no active bleeding, d/c' d him with perez. He states it hasn't been draining since and has suprapubic discomfort. Has some bloody urine in his perez bag, will have nursing try to irrigate nursing flushed but did not have significant return of urine. Will give IVF and check for possible anthony, could have dehydration from the procedure he had today pt now having clear urine and has no complaints, will d/c home Differential Diagnosis clogged perez, hematuria Lab Data Lab results reviewed: Yes I reviewed the patient's lab results. HPI General Mode of arrival: ambulatory . Date/Time Provider Initiated Documentation: 06/28/18 19:16 . Limitations to Documentation: no limitations . Information obtained by: patient . History of Present Illness 78 year old M presents to the emergency department with the chief complaint of perez not draining, Patient started experiencing this hour(s) (5) and it has been constant. No relieving factors improve symptom(s), Patient did receive the following treatments prior to arrival, none Related Data Home Medications Medication Instructions Recorded Confirmed nitrofurantoin macrocrystal 50 mg 50 mg PO DAILY #7 cap 06/28/18 06/28/18 capsule Previous Rx's Medication Instructions Recorded nitrofurantoin macrocrystal 50 mg 50 mg PO DAILY #7 cap 06/28/18 capsule Allergies Allergy/AdvReac Type Severity Reaction Status Date / Time No Known Allergies Allergy Unverified 06/28/18 19:39 General CAROLINE: 3 Review of Systems Review of Systems All systems reviewed & are unremarkable except as noted in HPI and below Constitutional Denies chills, Denies fever(s) and Denies weakness Eyes Denies loss of vision ENT Denies change in voice Cardiovascular Denies chest pain and Denies dyspnea Respiratory Denies dyspnea Gastrointestinal Denies nausea and Denies vomiting Genitourinary Denies dysuria Musculoskeletal Denies joint swelling Integumentary/Breasts Denies rash Neurologic Denies loss of vision and Denies weakness Psychiatric Denies depression Endocrine Denies cold intolerance and Denies heat intolerance Allergic/Immunologic Denies urticaria Exam Const General: no acute distress Orientation: alert HENMT Head: normal to inspection Ears: external ears normal General nose exam: external nose normal Mouth: moist mucous membranes Eyes General: appearance normal, both eyes and all related structures Neck Neck: normal visual inspection Resp Effort & Inspection: normal respiratory effort and able to speak in complete sentences Cardio Rate: regular rate Skin General skin exam: no rashes or lesions noted Neuro General: alert and oriented x3 Extrem General: normal to inspection Psych Mental Status: mental status grossly normal
[2018-06-28 19:37] VITALS: BP 156/80; PULSE 87; RESP 20; TEMP 36.8; O2SAT 98
[2018-06-28 20:03] LABS: Abs Immature Grans 0.01 k/cumm (0.0-0.09); Absolute Basophil Count 0.02 k/cumm (0.0-0.2); Absolute Eosinophil Count 0.08 k/cumm (0.0-0.7); Absolute Lymphocyte Count 1.49 k/cumm (1.2-3.4); Absolute Monocyte Count 0.72 k/cumm (0.11-0.7); Absolute Neutrophil Count 5.81 k/cumm (1.2-6.7); Basophils % 0.2; HCT 43.2 % (40.0-50.0); HGB 14.9 g/dL (13.5-17.5); Immature Grans % 0.1; Lymphocytes % 18.3; Mean Corp. HGB Concentration 34.5 g/dL (32.0-36.0); Mean Corpuscular Hemoglobin 30.2 pg (27.0-33.0); Mean Corpuscular Volume 87.4 fL (80-95); Mean Platelet Volume 9.4 fL (8.0-11.0); Monocytes % 8.9; Neutrophils % 71.5; Platelet Count 210 x1000/uL (130-400); RBC 4.94 m/cumm (4.50-6.00); RBC Distribution Width 13.5 % (11.8-14.1); White Blood Cell Count 8.13 k/cumm (4.4-10.8)
[2018-06-28 20:09] LABS: Anion Gap 10.2 mmol/L (3-11); BUN 19 mg/dL (7-18); CO2 24.8 mmol/L (21.0-32.0); CREATININE 1.13 mg/dL (0.70-1.30); Calcium 8.9 mg/dL (8.5-10.1); Chloride 104 mmol/L (98-107); Glucose 148 mg/dL (70-100); Potassium 3.7 mmol/L (3.5-5.1); Sodium 139 mmol/L (136-145)
[2018-06-28] MEDS: Normal Saline 1,000 ML 1000 ML IV (20:10)
[2018-06-28 21:31] LABS: INR 1.2 (1.0-3.5); PTT Activated 25.1 sec (21.0-31.4); Prothrombin Time 11.5 sec (9.3-10.8)
[2018-06-28 23:58] VITALS: BP 156/80; PULSE 87; RESP 20; TEMP 36.8; O2SAT 98
== END 2018-06-28 20:42 | disposition home or self-care (01) ==
LOC: ER 20:43
PROVIDERS: Emergency Provider Emergency Medicine; PCP Family Medicine
DX: E86.0 Dehydration (principal); R33.8 Other retention of urine; Z96.0 Presence of urogenital implants
CPT/HCPCS: 36415; 51701; 80048; 96360; 99281; 99283; 85025; 85610; 85730

== ENCOUNTER → 2018-07-02 08:06 | Outpatient (BNVA) | payer MEDICARE, BC, SELFPAY | PROVIDERS: PCP Family Medicine; Visit Provider Nurse Practitioner Gerontology | DX: R33.8 Other retention of urine (principal) | CPT/HCPCS: 99213 ==

== ENCOUNTER → 2018-07-03 09:21 | Outpatient (BNVA) | payer MEDICARE, BC, SELFPAY | PROVIDERS: PCP Family Medicine; Visit Provider Nurse Practitioner Gerontology | DX: R35.0 Frequency of micturition (principal); R33.8 Other retention of urine | CPT/HCPCS: 51798; 99214 ==

== ENCOUNTER → 2018-07-30 12:46 | Outpatient (BNVA) | payer MEDICARE, BC, SELFPAY | PROVIDERS: PCP Family Medicine; Visit Provider Nurse Practitioner Gerontology | DX: R31.0 Gross hematuria (principal) | CPT/HCPCS: 99213 ==

== ENCOUNTER 2018-07-31 22:06 | Emergency (ER) | payer MEDICARE, BC, SELFPAY ==
[2018-07-31] MEDS: Lidocaine 2% Jelly 11 ML SYR (22:40)
[2018-07-31 23:18] LABS: Bilirubin Small (Negative); Blood Large (Negative); Clarity Sl Cloudy; Glucose Negative (Negative); Ketones Trace mg/dL (Negative); Leukocyte Esterase Negative (Negative); Nitrite Positive (Negative); Urobilinogen 0.2 EU/dL (Up TO 0.2)
--- NOTE | 2018-07-31 23:19 | W.ED.GENAD ---
Discharge Plan Disposition Patient Disposition: HOME Condition: Good Discharge Details Chief Complaint: Urinary Clinical Impression: Gross hematuria, Clot retention of urine Primary Care Provider: Lizette Zamora V ED Provider: Vince Dotson Home Meds and New Rx's Prescriptions: New nitrofurantoin macrocrystal 100 mg capsule 100 mg PO Q12H 5 Days Qty: 10 RF: 0 Discharge Instructions Instructions: Urinary Retention in Men (ED), Hematuria (ED) Additional Instructions: Please take the medication as directed. Please follow-up with Dr. Bonner as soon as possible for reassessment. If you notice any worsening of your symptoms, or you do not have any drainage from the Tang with associated worsening pain and pressure, or any new symptoms such as vomiting, diarrhea, fever, chills, shortness of breath, chest pain, numbness, weakness, or fainting , please return immediately to the emergency department for reevaluation. As always, it was a pleasure participating in your medical care today. Referrals: David Bonner MD [ [facility] STAFF PHYSICIAN] - Medical Decision Making This is an 78-year-old male with a past medical history of prostate cancer and subsequent radiation therapy, who has subsequently developed chronic mild recurrent bleeding/hematuria. He has no history of kidney stones, he has no blood thinners. He sees Dr. Bonner regularly. He did actually see Dr. Bonner's mid-level provider yesterday he had no problems at that point. He did develop mild hematuria today, with occasional clots. He has some pressure when he has a clots, but denies any other significant pain. The patient was retaining roughly 500 cc of urine, and did demonstrate some clots and mild to moderate hematuria here. We have placed a Tang, and irrigated the bladder. Now there is no significant hematuria, and definitely no evidence of clots whatsoever. We will get a urinalysis to evaluate for any signs of infection. I feel that the patient being hemodynamically stable and this being clinically consistent with his multiple episodes of hematuria in the past, will be able to be discharged home with close follow-up with Dr. Bonner. His vital signs are stable, he shows no signs of tachycardia, no evidence of clinical anemia on exam. 11: 27 Urinalysis demonstrates positive for nitrites, negative for leuk esterase. Urine WBCs are 5-10, RBCs greater than 50. No evidence of bacteria. I feel the likelihood of a severe UTI is low, however since we will be maintaining the Tang, I do feel that he would benefit from treatment for potential gram-negative organisms. Patient continues to demonstrate hemodynamic stability. He will be discharged home with close follow-up with Dr. Bonner in the next 24-48 hours. We discussed red flags which to return the patient understands. I have extensively reviewed the treatment plan and discharge instructions with the patient. I have addressed all patient concerns at this time. The patient was made aware of what symptoms to monitor for that would warrant a return to the emergency department. Discussed the plan with the patient, they demonstrate verbal understanding and agreement with our assessment and plan at this time. The patient has had some resistance to cephalosporins in the past, review of previous labs demonstrate sensitivity to nitrofurantoin, additionally his creatinine and GFR have been normal and his most recent labs 1 month ago. We will start the patient on nitrofurantoin. HPI General Date/Time Provider Initiated Documentation: 07/31/18 22:33. HPI Narrative: This is an 78-year-old male with a past medical history of prostate cancer with subsequent radiation years ago, and has since then had multiple episodes of hematuria. He sees Dr. Bonner regularly, and has had multiple cystograms and uroscopy is for evaluation of the bleeding. It is felt that his source is most likely intermittent bleeding from the radiation therapy. He was actually just seen by Dr. Bonner's mid-level provider yesterday, he had no hematuria at that time. Unfortunately today he did develop some hematuria, and has been accompanied with clots. He developed some pain when he has the clots with some associated pressure. He denies any dysuria, or systemic symptoms of fever or chills. He states that his symptoms are clinically consistent with his multiple episodes that he has had in the past. The patient is on no blood thinners and takes no medications at home. He does have a pacemaker. Patient has no history of kidney stones. No other modifying factors at this time. The patient has had multiple straight cath Tang's in the past, and has had a leg bag in the past. Related Data Home Medications Medication Instructions Recorded Confirmed nitrofurantoin macrocrystal 100 mg PO Q12H 5 Days #10 cap 07/31/18 Previous Rx's Medication Instructions Recorded nitrofurantoin macrocrystal 100 mg PO Q12H 5 Days #10 cap 07/31/18 Allergies Allergy/AdvReac Type Severity Reaction Status Date / Time No Known Allergies Allergy Unverified 07/03/18 09:30 General Stated Complaint: Urinary CAROLINE: 3 Review of Systems Review of Systems All systems reviewed & are unremarkable except as noted in HPI and below PFSH Surgical History History of permanent cardiac pacemaker placement (Chronic) Social History Smoking/Tobacco Use Status: Former Tobacco Use Exam Narrative Exam Narrative: 1.Const: Well-nourished, Well-developed, appearing stated age 2.Eyes: PERRL, no conjunctival injection, and symmetrical lids. 3.ENT: Atraumatic external nose and ears. Moist MM. Neck: Symmetric, trachea midline, No thyromegaly. 4.CVS: +S1/S2, No murmurs or gallops. Peripheral pulses 2+ and equal in all extremities. Brisk capillary refill in all extremities. 5.RESP: Unlabored respiratory effort. Clear to auscultation bilaterally. No wheezes rales or rhonchi 6.GI: Soft, Nontender/Nondistended, No hepatosplenomegaly. No guarding or rebound. No significant abdominal tenderness, no CVA or flank tenderness on percussion. No guarding or rebound. Genitals demonstrate a uncircumcised male, no evidence of phimosis or paraphimosis. No blood at the urethral meatus. 7.MSK: Normocephalic/Atraumatic, Extremities w/o deformity or ttp No cyanosis or clubbing, Normal movement of all extremities 8.Skin: Warm, Dry. No rashes or lesions. 9.Neuro: manager child II-XII grossly intact. Sensation grossly intact, no focal neurologic deficits. 10.Psych: (AAO) x3. Appropriate mood and affect Course Respiratory Effort 07/31/18 22:22
--- NOTE | 2018-07-31 23:20 | NUR.NOTE ---
Nursing Note: Tang inserted, cath. flushed no clots noted. Patient tolerated well.
--- NOTE | 2018-07-31 23:22 | ED.GENADUL_ITS ---
Discharge Plan Disposition Patient Disposition: HOME Condition: Good Discharge Details Chief Complaint: Urinary Clinical Impression: Gross hematuria, Clot retention of urine Primary Care Provider: Lizette Zamora V ED Provider: Vince Dotson Home Meds and New Rx's Prescriptions: New nitrofurantoin macrocrystal 100 mg capsule 100 mg PO Q12H 5 Days Qty: 10 RF: 0 Discharge Instructions Instructions: Urinary Retention in Men (ED), Hematuria (ED) Additional Instructions: Please take the medication as directed. Please follow-up with Dr. Bonner as soon as possible for reassessment. If you notice any worsening of your symptoms, or you do not have any drainage from the Tang with associated worsening pain and pressure, or any new symptoms such as vomiting, diarrhea, fever, chills, shortness of breath, chest pain, numbness, weakness, or fainting , please return immediately to the emergency department for reevaluation. As always, it was a pleasure participating in your medical care today. Referrals: David Bonner MD [ [facility] STAFF PHYSICIAN] - Medical Decision Making This is an 78-year-old male with a past medical history of prostate cancer and subsequent radiation therapy, who has subsequently developed chronic mild recurrent bleeding/hematuria. He has no history of kidney stones, he has no blood thinners. He sees Dr. Bonner regularly. He did actually see Dr. Bonner's mid-level provider yesterday he had no problems at that point. He did develop mild hematuria today, with occasional clots. He has some pressure when he has a clots, but denies any other significant pain. The patient was retaining roughly 500 cc of urine, and did demonstrate some clots and mild to moderate hematuria here. We have placed a Tang, and irrigated the bladder. Now there is no significant hematuria, and definitely no evidence of clots whatsoever. We will get a urinalysis to evaluate for any signs of infection. I feel that the patient being hemodynamically stable and this being clinically consistent with his multiple episodes of hematuria in the past, will be able to be discharged home with close follow-up with Dr. Bonner. His vital signs are stable, he shows no signs of tachycardia, no evidence of clinical anemia on exam. 11: 27 Urinalysis demonstrates positive for nitrites, negative for leuk esterase. Urine WBCs are 5-10, RBCs greater than 50. No evidence of bacteria. I feel the likelihood of a severe UTI is low, however since we will be maintaining the Tang, I do feel that he would benefit from treatment for potential gram- negative organisms. Patient continues to demonstrate hemodynamic stability. He will be discharged home with close follow-up with Dr. Bonner in the next 24-48 hours. We discussed red flags which to return the patient understands. I have extensively reviewed the treatment plan and discharge instructions with the patient. I have addressed all patient concerns at this time. The patient was made aware of what symptoms to monitor for that would warrant a return to the emergency department. Discussed the plan with the patient, they demonstrate verbal understanding and agreement with our assessment and plan at this time. The patient has had some resistance to cephalosporins in the past, review of previous labs demonstrate sensitivity to nitrofurantoin, additionally his creatinine and GFR have been normal and his most recent labs 1 month ago. We will start the patient on nitrofurantoin. HPI General Date/Time Provider Initiated Documentation: 07/31/18 22:33 . HPI Narrative: This is an 78-year-old male with a past medical history of prostate cancer with subsequent radiation years ago, and has since then had multiple episodes of hematuria. He sees Dr. Bonner regularly, and has had multiple cystograms and uroscopy is for evaluation of the bleeding. It is felt that his source is most likely intermittent bleeding from the radiation therapy. He was actually just seen by Dr. Bonner's mid-level provider yesterday, he had no hematuria at that time. Unfortunately today he did develop some hematuria, and has been accompanied with clots. He developed some pain when he has the clots with some associated pressure. He denies any dysuria, or systemic symptoms of fever or chills. He states that his symptoms are clinically consistent with his multiple episodes that he has had in the past. The patient is on no blood thi nners and takes no medications at home. He does have a pacemaker. Patient has no history of kidney stones. No other modifying factors at this time. The patient has had multiple straight cath Tang's in the past, and has had a leg bag in the past. Related Data Home Medications Medication Instructions Recorded Confirmed nitrofurantoin macrocrystal 100 mg PO Q12H 5 Days #10 cap 12/18/18 Previous Rx's Medication Instructions Recorded nitrofurantoin macrocrystal 100 mg PO Q12H 5 Days #10 cap 07/31/18 Allergies Allergy/AdvReac Type Severity Reaction Status Date / Time No Known Allergies Allergy Unverified 07/03/18 09:30 General Stated Complaint: Urinary CAROLINE: 3 Review of Systems Review of Systems All systems reviewed & are unremarkable except as noted in HPI and below PFSH Surgical History History of permanent cardiac pacemaker placement (Chronic) Social History Smoking/Tobacco Use Status: Former Tobacco Use Exam Narrative Exam Narrative: 1.Const: Well-nourished, Well-developed, appearing stated age 2.Eyes: PERRL, no conjunctival injection, and symmetrical lids. 3.ENT: Atraumatic external nose and ears. Moist MM. Neck: Symmetric, trachea midline, No thyromegaly. 4.CVS: +S1/S2, No murmurs or gallops. Peripheral pulses 2+ and equal in all extremities. Brisk capillary refill in all extremities. 5.RESP: Unlabored respiratory effort. Clear to auscultation bilaterally. No wheezes rales or rhonchi 6.GI: Soft, Nontender/Nondistended, No hepatosplenomegaly. No guarding or rebound. No significant abdominal tenderness, no CVA or flank tenderness on percussion. No guarding or rebound. Genitals demonstrate a uncircumcised male, no evidence of phimosis or paraphimosis. No blood at the urethral meatus. 7.MSK: Normocephalic/Atraumatic, Extremities w/o deformity or ttp No cyanosis or clubbing, Normal movement of all extremities 8.Skin: Warm, Dry. No rashes or lesions. 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 Sensation grossly intact, no focal neurologic deficits. 10.Psych: (AAO) x3. Appropriate mood and affect Course Respiratory Effort 07/31/18 22:22
[2018-07-31 23:25] LABS: Bacteria Negative HPF (Negative); C & S Indicated? Yes; Casts Negative LPF (Negative); Crystals Many Amorphous HPF (Negative); Epithelial Cells Negative HPF (Negative); Mucus Negative (Negative); Other Cells Negative (Negative); RBC >50 (0-2)
[2018-07-31] MEDS: Nitrofurantoin Macrocrystal 50 MG CAP 100 MG PO (23:51)
[2018-07-31 23:57] VITALS: BP 136/78; PULSE 78; RESP 16; TEMP 36.6; O2SAT 98
== END 2018-07-31 23:45 | disposition home or self-care (01) ==
PROVIDERS: Emergency Provider Student in an Organized Health Care Education/Training Program; PCP Family Medicine
DX: R31.9 Hematuria, unspecified (principal); R33.8 Other retention of urine
CPT/HCPCS: 51702; 99283; 81003; 81015; 87086

== ENCOUNTER → 2018-08-01 09:35 | Outpatient (BNVA) | payer MEDICARE, BC, SELFPAY | PROVIDERS: PCP Family Medicine; Visit Provider Nurse Practitioner Gerontology | DX: R33.8 Other retention of urine (principal); Z96.0 Presence of urogenital implants | CPT/HCPCS: 51702; 99213 ==

== ENCOUNTER 2018-08-03 06:39 | Day surgery (SDC) | payer MEDICARE, BC, SELFPAY ==
[2018-08-03 06:05] VITALS: BP 155/88; PULSE 68; RESP 16; TEMP 36.4; O2SAT 99
--- NOTE | 2018-08-03 07:10 | W.PM.HP.N ---
Date of service: 08/03/18 Time of Service: 07:11 Assessment and Plan (1) Gross hematuria: Current visit: No Status: Acute For cystoscopy with clot evacuation and possible fulguration (2) Prostate cancer: Current visit: No Status: Chronic History of Present Illness Chief Complaint: Gross Hematuria Narrative: This is an 78 year old man who has a history of prostate cancer treated with external beam radiation. He has had no signs of tumor recurrance, but he has had intermittant hematuria for years. He had an episode of clot retention about a month ago. 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 He comes in now with recurrent hematuria and clots. He has a catheter in place, but the urine has been getting darker. He presents for repeat cystoscopy and possible fulguration. Review of Systems Constitutional Denies chills and Denies fever(s) Eyes Reports loss of vision ENT Denies sore throat Cardiovascular Denies chest pain and Denies syncope Respiratory Denies chest congestion and Denies cough Gastrointestinal Denies nausea and Denies vomiting Musculoskeletal Reports arthralgias Neurologic Denies syncope and Reports loss of vision Hematologic/Lymphatic Denies easy bruising PFSH Medical History Urethral stricture (Resolved) Prostate cancer (Chronic) Gross hematuria (Acute) Macular degeneration (Chronic) Surgical History H/O cystoscopy (Chronic) History of permanent cardiac pacemaker placement (Chronic) Social History Smoking/Tobacco Use Status: Former Tobacco Use Meds Home Medications Medication Instructions Recorded Confirmed Type nitrofurantoin macrocrystal 100 mg PO Q12H 5 Days #10 cap 07/31/18 08/03/18 Rx oxybutynin chloride 5 mg tablet 5 mg PO TID PRN #20 tab 08/01/18 08/03/18 Rx Allergies Allergy/AdvReac Type Severity Reaction Status Date / Time No Known Allergies Allergy Unverified 08/03/18 06:48 Exam Narrative Exam Narrative: He is in no current distress. He is cooperative. His skin is warm and dry. He does not appear flushed or septic. His neck is supple His lungs are clear. Cardiac exam shows a regular rate and rhythm His abdomen is soft with no mass His perez cathet shows dark urine draining He is awake and alert Results Last Vital Signs Temp 36.4 C L 08/03/18 06:05 Pulse 68 08/03/18 06:05 Resp 16 08/03/18 06:05 BP 155/88 H 08/03/18 06:05 Pulse Ox 99 08/03/18 06:05
[2018-08-03] MEDS: Lactated Ringers 1,000 ML 80 ML IV (07:31)
[2018-08-03] MEDS: Lidocaine 2% Jelly 6 ML SYR (08:00)
--- NOTE | 2018-08-03 08:23 | W.PM.DSUDISC ---
Discharge Plan Disposition Patient Disposition: HOME Condition: Stable Discharge Details Reason For Visit: HEMATURIA Attending Provider: David Bonner Primary Care Provider: Lizette Zamora V Home Meds and New Rx's Prescriptions: No Action oxybutynin chloride 5 mg tablet 5 mg PO TID PRN (Reason: bladder spasms) Qty: 20 RF: 0 nitrofurantoin macrocrystal 100 mg capsule 100 mg PO Q12H 5 Days Qty: 10 RF: 0 Discharge Instructions Additional Instructions: Tang to gravity If urine remains transparent, may remove catheter and discharge if pt voids If urine not transparent, will discharge with catheter to leg bag and follow up in office for catheter removal If catheter removed, please give dose of pyridium 200 mg PO prior to discharge Stand Alone Forms: [facility] ([facility]) Activity:: Activity as Tolerated Diet:: As Tolerated Discharge Orders Discharge Orders: Discharge Order (Routine); Ordered 08/03/18 Ordered By: David Bonner DS: Diagnosis Discharge Diagnosis (1) Gross hematuria: Status: Acute (2) Prostate cancer: Status: Chronic
--- NOTE | 2018-08-03 08:39 | ROE_ITS ---
DATE: AUGUST 03, 2018 Preoperative Diagnosis: Gross hematuria Postoperative Diagnosis: Gross hematuria Operation: Cystoscopy Clot evacuation Fulguration of prostatic mucosa Anesthesia: MAC with local Surgeon: David Bonner M.D. Complications: None History: This is an 78 year-old gentleman who has a history of prostate cancer. He was treated with external beam radiation. He has had no sign of prostate cancer recurrence. He has had intermittent episodes of gross, painless hematuria. About a month ago he developed clot retention. We did a cystoscopy and evacuated the clots. We had mentioned that should his hematuria return, we would have options including fulgurating the prostatic mucosa, resecting the prostate or trying medical therapy to decreases the vascularity of the prostate. Over the past few days he has had gross hematuria with clots. He has had several Emergency Room visits as well as several office visits. He currently has a catheter in place that is draining very dark colored urine. He presents now for repeat cystoscopy. Procedure: The patient was brought to the Operating Room on 08/03/18. He was given monitored anesthesia care and placed in the dorsal lithotomy position. His indwelling catheter was removed. His genitalia was prepped and draped. 2% Xylocaine jelly was instilled into the urethra to act as a local anesthetic. A #24 Tamazight resectoscope sheath was passed through the urethra into the bladder with the aid of a visual obturator. The pendulous, bulbus and membranous urethra appeared normal when we inspected them with a 30 degree lens. The prostatic urethra showed multiple prominent blood vessels but no active bleeding. The bladder neck was entered and the bladder mucosa was inspected. A large amount of clot was seen within the bladder. These clots were evacuated using a Cristian syringe. Once all the clots were cleared, we then used an [employer] resectoscope and a bipolar button to cauterize all of the visible prostatic mucosa from the bladder neck out to the verumontanum. Again at the completion of this procedure, no active bleeding was seen. The bladder was filled with irrigant. A #20 Tamazight Coude tipped catheter was passed through the urethra into the bladder. The catheter balloon was inflated with 10 cc. of sterile water. The catheter was hooked to gravity drainage. If his urine remains transparent in the Day Surgery area, we will remove the catheter before he is discharged. Otherwise he will go home with his catheter to a leg bag and have a voiding trial next week. The patient tolerated this procedure well with no complications. cc Dr. Lizette Zamora
[2018-08-03 09:08] VITALS: BP 124/77; PULSE 96; RESP 16; TEMP 35.7; O2SAT 95
[2018-08-03] MEDS: Finasteride 5 MG TAB PO ×2 (09:20→09:30)
== END 2018-08-03 10:20 | disposition home or self-care (01) ==
PROVIDERS: PCP Family Medicine; Visit Provider Urology
PROC: 0TJB8ZZ Inspection of Bladder, Via Natural or Artificial Opening Endoscopic (ICD-10-PCS; CPT 52000; principal; 2018-08-03 08:00)
DX: R31.0 Gross hematuria (principal); N32.89 Other specified disorders of bladder; Z85.46 Personal history of malignant neoplasm of prostate; Z92.3 Personal history of irradiation
CPT/HCPCS: 52001; 52214; 51700; 99284; NC; J0690; J1100; J1885; J2250; J2405; J3010

== ENCOUNTER 2018-08-03 19:08 | Emergency (ER) | payer MEDICARE, BC, SELFPAY ==
[2018-08-03 19:14] VITALS: BP 174/80; PULSE 90; RESP 18; TEMP 36.6; O2SAT 97
--- NOTE | 2018-08-03 19:33 | NUR.NOTE ---
about 50 ccs hematuria in perez bag, bladder scanned for 79ccs. Pt. currently denies any pain, encouraged to call with any increase in discomfort.
--- NOTE | 2018-08-03 20:01 | ED.GENADUL_ITS ---
Discharge Plan Disposition Patient Disposition: HOME Condition: Stable Discharge Details Chief Complaint: Abd Prob Clinical Impression: Gross hematuria, Clot retention of urine Primary Care Provider: Lizette Zamora V ED Provider: Abraham Stevens Home Meds and New Rx's Prescriptions: No Action finasteride 5 mg tablet 5 mg PO DAILY Qty: 30 RF: 12 oxybutynin chloride 5 mg tablet 5 mg PO TID PRN (Reason: bladder spasms) Qty: 20 RF: 0 Discharge Instructions Additional Instructions: try to stay hydrated if the catheter stops draining try to flush it as the nurse showed you. If this doesn't work, you have fevers or severe pain return to the emergency department Medical Decision Making 78 yo male who underwent cauterization of bladder and prostate with Dr. Bonner today for gross hematuria comes in with complaint of leaking from perez. Has no leaking now and has gross blood in perez bag, no fevers or abdominal pain. will have nursing try to irrigate the perez nurse able to flush and a small clot came out and he is now draining clear red urine. No pain or fevers. Spoke with Dr. Bonner who had no further recs at this time. Pt will be d/c'd and return if it stops draining again. Differential Diagnosis clot retention, misplaced perez HPI General Mode of arrival: ambulatory . Date/Time Provider Initiated Documentation: 08/03/18 19:46 . Limitations to Documentation: no limitations . Information obtained by: patient . History of Present Illness 78 year old M presents to the emergency department with the chief complaint of leaking perez, described as moderate, Patient started experiencing this hour(s) (2) and it has been now resolved. No relieving factors improve symptom(s), No exacerbating factors reported . Patient notes no other symptoms.. Patient did receive the following treatments prior to arrival, none Related Data Home Medications Medication Instructions Recorded Confirmed oxybutynin chloride 5 mg tablet 5 mg PO TID PRN #20 tab 08/01/18 08/03/18 finasteride 5 mg tablet 5 mg PO DAILY #30 tab 08/03/18 08/03/18 Previous Rx's Medication Instructions Recorded oxybutynin chloride 5 mg tablet 5 mg PO TID PRN #20 tab 08/01/18 finasteride 5 mg tablet 5 mg PO DAILY #30 tab 08/03/18 Allergies Allergy/AdvReac Type Severity Reaction Status Date / Time No Known Allergies Allergy Unverified 08/03/18 06:48 General Stated Complaint: Abd Prob CAROLINE: 3 Review of Systems Review of Systems All systems reviewed & are unremarkable except as noted in HPI and below Constitutional Denies chills, Denies fever(s) and Denies weakness ENT Denies change in voice Cardiovascular Denies chest pain and Denies dyspnea Respiratory Denies dyspnea Gastrointestinal Denies abdominal pain, Denies nausea and Denies vomiting Musculoskeletal Denies joint swelling Integumentary/Breasts Denies rash Neurologic Denies weakness Psychiatric Denies depression [facility] Medical History Urethral stricture (Resolved) Prostate cancer (Chronic) Gross hematuria (Acute) Macular degeneration (Chronic) Surgical History H/O cystoscopy (Chronic) History of permanent cardiac pacemaker placement (Chronic) Social History Smoking/Tobacco Use Status: Former Tobacco Use Exam Const General: no acute distress Orientation: alert HENMT Head: normal to inspection Ears: external ears normal General nose exam: external nose normal Mouth: moist mucous membranes Eyes General: appearance normal, both eyes and all related structures Neck Neck: normal visual inspection Resp Effort & Inspection: normal respiratory effort and able to speak in complete sentences Cardio Rate: regular rate Skin General skin exam: no rashes or lesions noted Neuro General: alert and oriented x3 Extrem General: normal to inspection Psych Mental Status: mental status grossly normal Course Vital Signs Temperature 36.6 C 08/03/18 19:14 Pulse 90 08/03/18 19:14 Respiratory Rate 18 08/03/18 19:14 Blood Pressure 174/80 H 08/03/18 19:14 Pulse Oximetry 97 08/03/18 19:14 Temperature 36.6 C 08/03/18 19:14 Temperature Source Temporal Artery Scan 08/03/18 19:14 Pulse 90 08/03/18 19:14 Respiratory Rate 18 08/03/18 19:14 Respiratory Effort 08/03/18 19:20 Blood Pressure 174/80 H 08/03/18 19:14 Blood Pressure Position Sitting 08/03/18 19:14 Pulse Oximetry 97 08/03/18 19:14 Oxygen Delivery Method Room Air 08/03/18 19:14 Oxygen Flow Rate 0 08/03/18 19:14 Pain Level 0 08/03/18 19:14
--- NOTE | 2018-08-03 21:06 | NUR.NOTE ---
This RN reviewed technique for flushing catheter using sterile technique. Pt. sent home with 2 cath-tip syringes and 4 bottles of sterile water. Pt. demonstrates appropriate use and clearly understands how and why to flush catheter, pt. also verbalizes return precautions including pain and fever.
[2018-08-03 21:07] VITALS: BP 170/100; PULSE 80; RESP 16; O2SAT 100
== END 2018-08-03 21:08 | disposition home or self-care (01) ==
PROVIDERS: Emergency Provider Emergency Medicine; PCP Family Medicine
DX: T83.031A Leakage of indwelling urethral catheter, initial encounter (principal); R33.8 Other retention of urine; R31.0 Gross hematuria; Y84.8 Other medical procedures as the cause of abnormal reaction of the patient, or of later complication, without mention of misadventure at the time of the procedure; I10 Essential (primary) hypertension
CPT/HCPCS: 51700; 99284

== ENCOUNTER 2018-08-04 07:36 | Emergency (ER) | payer MEDICARE, BC, SELFPAY ==
[2018-08-04 07:44] VITALS: BP 171/78; PULSE 77; RESP 16; TEMP 37; O2SAT 100
--- NOTE | 2018-08-04 08:08 | NUR.NOTE ---
Tang was draining dark red urine, but was draining. This RN flushed till pale pink, continues to drain adequately. Pt. continues to be in NAD. Will monitor.
[2018-08-04 08:38] LABS: Abs Immature Grans 0.01 k/cumm (0.0-0.09); Absolute Basophil Count 0.02 k/cumm (0.0-0.2); Absolute Eosinophil Count 0.04 k/cumm (0.0-0.7); Absolute Lymphocyte Count 1.47 k/cumm (1.2-3.4); Absolute Monocyte Count 0.83 k/cumm (0.11-0.7); Absolute Neutrophil Count 5.48 k/cumm (1.2-6.7); Basophils % 0.3; Eosinophils % 0.5; HCT 38.2 % (40.0-50.0); Immature Grans % 0.1; Lymphocytes % 18.7; Mean Corpuscular Volume 88.2 fL (80-95); Mean Platelet Volume 9.3 fL (8.0-11.0); Monocytes % 10.6; Neutrophils % 69.8; Platelet Count 211 x1000/uL (130-400); RBC 4.33 m/cumm (4.50-6.00); RBC Distribution Width 13.2 % (11.8-14.1); White Blood Cell Count 7.85 k/cumm (4.4-10.8)
--- NOTE | 2018-08-04 08:47 | ED.GENADUL_ITS ---
Discharge Plan Disposition Patient Disposition: HOME Condition: Good Discharge Details Chief Complaint: Abd Prob Clinical Impression: Gross hematuria Primary Care Provider: Lizette Zamora V ED Provider: Vince Dotson Home Meds and New Rx's Prescriptions: No Action finasteride 5 mg tablet 5 mg PO DAILY Qty: 30 RF: 12 oxybutynin chloride 5 mg tablet 5 mg PO TID PRN (Reason: bladder spasms) Qty: 20 RF: 0 Discharge Instructions Instructions: Hematuria (ED) Additional Instructions: Please irrigate with 30-60 cc of normal saline as shown every 2 hours. If you notice any recurrent retention, or clogging in spite of this please return immediately to the emergency department for reassessment. If you notice any worsening of your symptoms, or any new symptoms such as vomiting, diarrhea, fever, chills, shortness of breath, chest pain, numbness, weakness, or fainting , please return immediately to the emergency department for reevaluation. Please follow up with your primary care provider as soon as possible for reassessment and reevaluation. As always, it was a pleasure participating in your medical care today. Referrals: Lizette Zamora MD [Primary Care Provider] - David Bonner MD [ [facility] STAFF PHYSICIAN] - Medical Decision Making This is a very pleasant 78-year-old male who has unfortunate history of prostate cancer with subsequent radiation therapy leading to significant scarring muscle episodes of hematuria in the past. Over the last few days he has again dealt with his hematuria. Unfortunately he has needed a Tang Tang catheter and leg bag. He had a cystoscopy and ablation with Dr. Bonner yesterday, but unfortunately after this he still had hematuria and subsequent clotting. During these episodes he is leaking around the Tang catheter, increased pain and pressure, he has been trying to flush it out at home but is been unsuccessful for the last 2 episodes. Patient does feel frustrated at this point with a recurrent symptomatology. Vital signs are stable and reassuring. He shows no signs of significant anemia with no decrease in color or pallor, no tachycardia, and reassuring vital signs. The patient is on no blood thinners. We have flush the Tang catheter, and it appears to be flushing well at this time. Blood work shows no signs of significant anemia, and renal function is within normal limits. I do feel that the patient is certainly safe for discharge, and the patient does demonstrate understanding and technique understanding of how to flush his Tang catheter. We will contact Dr. Bonner make sure follow-up is present, and to convey the patient's concerns with him. 10:40 a.m. Patient's laboratory workup is returned and demonstrates no evidence of renal dysfunction, platelets are normal, no evidence of anemia. The patient's Tang is continued to drain well while he has been here. We have flushed his Tang is draining clear to pink urine. This final time we have irrigated with 1 g of TXA into the bladder, with a 2017 study that did show some efficacy utilizing this I feel that it is at least worth a shot. We have attempted to contact Dr. Bonner multiple times this morning over the weekend however unfortunately he has been unable to call back. With reassuring vital signs, a well draining Tang, normal hemoglobin level, I do feel that patient can be discharged and does not require admission at this time. I have instructed the patient and nursing staff has shown him how to flush the Tang, we will recommend mild flushes every 2 hours in an attempt to prevent any clotting. If the patient fails with this therapy in the TXA, I have encouraged him to return the emergency department at which point he will be a failure of outpatient therapy and will most likely require admission for continuous bladder irrigation. I do understand the patient's frustrations with this recurrent bleeding. I have answered all questions that the patient has, he is in agreement with the plan. We have addressed all concerns. I have extensively reviewed the treatment plan and discharge instructions with the patient. I have addressed all patient concerns at this time. The patient was made aware of what symptoms to monitor for that would warrant a return to the emergency department. Discussed the plan with the patient, they demonstrate verbal understanding and agreement with our assessment and plan at this time. HPI General Date/Time Provider Initiated Documentation: 08/04/18 08:18 . HPI Narrative: This is an 78-year-old male with a past medical history of prostate cancer with subsequent radiation years ago, and has since then had multiple episodes of hematuria. He sees Dr. Bonner regularly, and has had multiple cystograms and uroscopy is for evaluation of the bleeding. It is felt that his source is most likely intermittent bleeding from scarring from the radiation therapy. Over the last few days the patient has had recurrent hematuria. I had seen him a few days ago, and he was actually just seen by Dr. Bonner's yesterday where an ablation was performed via cystoscopy. After the procedure he was fine, and the last night he again developed hematuria. His Tang was maintained, he was sent home with syringes, and instructed in how to flush the Tang. Unfortunately today he did develop some hematuria, clotting, and clogging again. He attempted to dislodge the clots at home but was unable to. He states that as he was driving and he went over some bumps and the Tang began clearing once more. He developed some pain when he has the clots with some as sociated pressure. He denies any dysuria, or systemic symptoms of fever or chills. When there is clogging, the patient does admit to some leaking around his urethra. He states that his symptoms are clinically consistent with his multiple episodes that he has had in the past. The patient is on no blood thinners and takes no regular medications at home. He does have a pacemaker. Patient has no history of kidney stones. No other modifying factors at this time. The patient has had multiple straight cath Tang's in the past, and has had a leg bag in the past. Of note the patient does feel frustrated at this time as this is a recurring problem. Related Data Home Medications Medication Instructions Recorded Confirmed oxybutynin chloride 5 mg tablet 5 mg PO TID PRN #20 tab 08/01/18 08/03/18 finasteride 5 mg tablet 5 mg PO DAILY #30 tab 08/03/18 08/03/18 Previous Rx's Medication Instructions Recorded oxybutynin chloride 5 mg tablet 5 mg PO TID PRN #20 tab 08/01/18 finasteride 5 mg tablet 5 mg PO DAILY #30 tab 08/03/18 Allergies Allergy/AdvReac Type Severity Reaction Status Date / Time No Known Allergies Allergy Unverified 08/03/18 06:48 General Stated Complaint: Abd Prob CAROLINE: 3 Review of Systems Review of Systems All systems reviewed & are unremarkable except as noted in HPI and below PFSH Surgical History H/O cystoscopy (Chronic) History of permanent cardiac pacemaker placement (Chronic) Social History Smoking/Tobacco Use Status: Former Tobacco Use Exam Narrative Exam Narrative: 1.Const: Well-nourished, Well-developed, appearing stated age 2.Eyes: PERRL, no conjunctival injection, and symmetrical lids. 3.ENT: Atraumatic external nose and ears. Moist MM. Neck: Symmetric, trachea midline, No thyromegaly. 4.CVS: +S1/S2, No murmurs or gallops. Peripheral pulses 2+ and equal in all extremities. Brisk capillary refill in all extremities. 5.RESP: Unlabored respiratory effort. Clear to auscultation bilaterally. No wheezes rales or rhonchi 6.GI: Soft, Nontender/Nondistended, No hepatosplenomegaly. No guarding or rebound. Genital exam is benign, Tang catheter in place, leg bag in place, notable hematuria is present. 7.MSK: Normocephalic/Atraumatic, Extremities w/o deformity or ttp No cyanosis or clubbing, Normal movement of all extremities 8.Skin: Warm, Dry. No rashes or lesions. 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 Sensation grossly intact, no focal neurologic deficits. 10.Psych: (AAO) x3. Appropriate mood and affect Course Vital Signs Temperature 37 C 08/04/18 07:44 Pulse 77 08/04/18 07:44 Respiratory Rate 16 08/04/18 07:44 Blood Pressure 171/78 H 08/04/18 07:44 Pulse Oximetry 100 08/04/18 07:44 Temperature 37 C 08/04/18 07:44 Temperature Source Temporal Artery Scan 08/04/18 07:44 Pulse 77 08/04/18 07:44 Respiratory Rate 16 08/04/18 07:44 Respiratory Effort 08/04/18 08:10 Blood Pressure 171/78 H 08/04/18 07:44 Blood Pressure Position Sitting 08/04/18 07:44 Pulse Oximetry 100 08/04/18 07:44 Oxygen Delivery Method Room Air 08/04/18 07:44 Oxygen Flow Rate 0 08/04/18 07:44 Pain Level 0 08/04/18 07:44 Lab/Test Results Lab/Test Results: Laboratory Tests Range/Units 08/04/18 08:19 WBC Cancelled RBC Cancelled Hgb Cancelled Hct Cancelled MCV Cancelled MCH Cancelled MCHC Cancelled RDW Cancelled Plt Count Cancelled MPV Cancelled
[2018-08-04 08:50] LABS: ALT 25 U/L (12-78); AST 20 U/L (15-37); Albumin 3.1 g/dL (3.4-5.0); Alkaline Phosphatase 52 U/L (46-116); Anion Gap 9.8 mmol/L (3-11); BUN 13 mg/dL (7-18); Bilirubin, Total 0.5 mg/dL (0.2-1.0); CO2 26.2 mmol/L (21.0-32.0); CREATININE 0.98 mg/dL (0.70-1.30); Calcium 9.1 mg/dL (8.5-10.1); Chloride 105 mmol/L (98-107); Glucose 105 mg/dL (70-100); Potassium 3.5 mmol/L (3.5-5.1); Sodium 141 mmol/L (136-145); Total Protein 6.6 g/dL (6.4-8.2)
--- NOTE | 2018-08-04 09:04 | NUR.NOTE ---
pt. resting, in NAD. Tang continues to drain.
--- NOTE | 2018-08-04 09:51 | NUR.NOTE ---
Pt. ambulated to restroom, steady gait, perez is draining, is in no distress.
[2018-08-04 11:13] VITALS: BP 173/86; PULSE 78; RESP 16; O2SAT 98
== END 2018-08-04 11:07 | disposition home or self-care (01) ==
PROVIDERS: Emergency Provider Student in an Organized Health Care Education/Training Program; PCP Family Medicine
DX: R31.0 Gross hematuria (principal); Z85.46 Personal history of malignant neoplasm of prostate; Z96.0 Presence of urogenital implants
CPT/HCPCS: 36415; 51700; 51702; 80053; 85027; 99285; 85025

== ENCOUNTER 2018-08-06 09:18 | Inpatient (IN) | payer MEDICARE, BC, SELFPAY ==
[2018-08-06 09:20] VITALS: BP 166/76; PULSE 73; RESP 16; TEMP 36.4; O2SAT 100
--- NOTE | 2018-08-06 09:29 | NUR.NOTE ---
patient reports perez is now draining, hematuria noted which is normal for patient past 2 weeks Nursing Note:
--- NOTE | 2018-08-06 09:52 | W.ED.GENAD ---
Discharge Plan Disposition Patient Disposition: [facility] INPATIENT Condition: Improving Discharge Details Chief Complaint: Urinary Reason For Visit: HEMATURIA Admit Date/Time: 08/07/18 13:56 Admit Provider: Thor Moore Attending Provider: David Bonner Primary Care Provider: Lizette Zamora V ED Provider: Inderjit Farrell Hospital Course Hospital Course: The patient was admitted with gross hematuria and clots. Initially an irrigating catheter was placed and continuous bladder irrigation with saline was begun. Hand irrigation was used to clear any clots. He was then taken to the operating room on 08/09/2018. We removed many clots from his bladder. We did not find any active bleeding, but he did have hemorrhagic mucosal changes both in the bladder and the prostate. We took transurethral biopsies of both of these areas to make sure we were not missing any underlying pathology. We then started him on Amicar bladder irrigations. His urine began clearing, but he had a repeat bleed and his hemoglobin decreased to 7. He was taken back to the operating room where he underwent vaporization of the prostatic mucosa and cauterization of the bladder mucosa. He was given 2 units of packed red blood cells and is he low been ian back up to 9.7. His urine cleared with saline irrigation. He is visit being discharged with his Perez catheter in place about 24 hours after his last surgical procedure. At the time of his discharge, he is quite comfortable. He is complaining of some pain at the tip of the penis. His urine is clear. His lungs are clear. His cardiac exam and abdominal exams are normal. Discharge Instructions Instructions: Cystoscopy (DC), Perez Catheter Placement and Care (DC) Additional Instructions: Perez to large drainage bag Catheter plug to irrigation port F/U Monday or for catheter removal Forms: Nursing Discharge Form Referrals: Emely Lopez NP [NURSE PRACTITIONER] - 08/21/18 10:00 am Discharge Data Date/Time: 08/20/18 00:00 Discharge Date/Time-TO BE ENTERED AT DEPARTURE: 08/09/18 14:28 Medical Decision Making 9:55 -- 78-year-old male with history of prostate cancer status post radiation 6 years ago, here 2 days status post cystoscopy with cauterization with continued urinary bleeding requiring frequent irrigation to present clotting and obstruction, failing outpatient therapy. Plan for admission with three-way continuous irrigation. Page to Dr. Bonner and awaiting response. 11:09 -- Spoke with [facility] [place] transfer center to request transfer -- awaiting urology call back 12:45 -- Spoke with [facility] urology who recommends bladder ultrasound to assess clot burden. Recommends admission to general surgery here at [facility]. Spoke with Dr. Moore who will admit. Diagnosis: hematuria Disposition: admit to med/surg by Dr. Moore Please note that unintended delay in signing this ED note may inadvertently result in data populating into my documentation from inpatient hospitalization. HPI General Mode of arrival: ambulatory. Date/Time Provider Initiated Documentation: 08/06/18 09:19. Limitations to Documentation: no limitations. Information obtained by: patient. HPI Narrative: 78-year-old male with history of prostate cancer, status post radiation about 6 years ago, here with hematuria. Patient has had intermittent and worsening hematuria over the past [address] Bonner, urology, regularly and had a cystoscopy with cauterization on 08/04/18, has Perez catheter which continues to drain bloody urine despite frequent, more than hourly flushes. Bleeding is dark red with clots. Clotting improved with irrigation but then quickly recurs. No associated abdominal pain. No weakness. Related Data Home Medications Medication Instructions Recorded Confirmed finasteride 5 mg tablet 5 mg PO DAILY #30 tab 08/03/18 08/20/18 docusate sodium [Colace] 100 mg PO BID #30 cap 08/04/18 08/20/18 lidocaine HCl [Glydo] 1 applic TP TID PRN #60 ml 08/17/18 08/20/18 sulfamethoxazole-trimethoprim 1 tab PO BID #10 tab 08/17/18 08/20/18 [Bactrim DS] tramadol [Ultram] 50 mg PO Q6H PRN #20 tab 08/17/18 08/20/18 Previous Rx's Medication Instructions Recorded finasteride 5 mg tablet 5 mg PO DAILY #30 tab 08/03/18 docusate sodium [Colace] 100 mg PO BID #30 cap 08/04/18 lidocaine HCl [Glydo] 1 applic TP TID PRN #60 ml 08/17/18 sulfamethoxazole-trimethoprim 1 tab PO BID #10 tab 08/17/18 [Bactrim DS] tramadol [Ultram] 50 mg PO Q6H PRN #20 tab 08/17/18 Allergies Allergy/AdvReac Type Severity Reaction Status Date / Time No Known Allergies Allergy Unverified 08/06/18 09:27 General Stated Complaint: Urinary CAROLINE: 3 Review of Systems Review of Systems All systems reviewed & are unremarkable except as noted in HPI and below PFSH Medical History Urethral stricture (Resolved) Prostate cancer (Chronic) Gross hematuria (Acute) Neoplasm of skin (Resolved 08/12/13) Age-related macular degeneration (Chronic 08/12/13) Macular degeneration (Chronic) Surgical History H/O cystoscopy (Chronic) History of permanent cardiac pacemaker placement (Chronic) Social History Smoking/Tobacco Use Status: Former Tobacco Use alcohol intake: current alcohol intake frequency: holidays/special occasions only Alcohol type: beer and wine substance use type: does not use Exam Const General: cooperative and no acute distress HENMT Head: normocephalic and atraumatic Mouth: moist mucous membranes Eyes Conjunctivae: normal conjunctivae Sclera: normal sclerae EOM: EOM intact bilaterally Resp Auscultation: clear to auscultation bilaterally, no rales, no rhonchi and no wheezes Cardio Jugular venous pressure: no JVD Rate: regular rate and not tachycardic Rhythm: regular rhythm GI Palpation: soft, not firm, no guarding, no masses, not rigid and nontender Other: perez intact draining dark bloody urine with clots Skin General skin exam: no rashes or lesions noted Neuro General: alert, awake, oriented x3 and tone normal Extrem General: no edema Psych Appearance: grossly normal Mental Status: mental status grossly normal Speech and Movement: speech and movement normal Course Vital Signs Temperature 36.4 C L 08/06/18 09:20 Pulse 73 08/06/18 09:20 Respiratory Rate 16 08/06/18 09:20 Blood Pressure 166/76 H 08/06/18 09:20 Pulse Oximetry 100 08/06/18 09:20 Temperature 36.4 C L 08/06/18 09:20 Temperature Source Skin 08/06/18 09:20 Pulse 73 08/06/18 09:20 Respiratory Rate 16 08/06/18 09:20 Respiratory Effort 08/06/18 09:20 Blood Pressure 166/76 H 08/06/18 09:20 Pulse Oximetry 100 08/06/18 09:20 Oxygen Delivery Method Room Air 08/06/18 09:20 Oxygen Flow Rate 0 08/06/18 09:20 Pain Level 3 08/06/18 09:20
--- NOTE | 2018-08-06 09:55 | ED.GENADUL_ITS ---
Discharge Plan Disposition Patient Disposition: [facility] INPATIENT Condition: Improving Discharge Details Chief Complaint: Urinary Reason For Visit: HEMATURIA Admit Date/Time: 08/07/18 13:56 Admit Provider: Thor Moore Attending Provider: David Bonner Primary Care Provider: Lizette Zamora V ED Provider: Inderjit Farrell Hospital Course Hospital Course: The patient was admitted with gross hematuria and clots. Initially an irrigating catheter was placed and continuous bladder irrigation with saline was begun. Hand irrigation was used to clear any clots. He was then taken to the operating room on 08/09/2018. We removed many clots from his bladder. We did not find any active bleeding, but he did have hemorrhagic mucosal changes both in the bladder and the prostate. We took transurethral biopsies of both of these areas to make sure we were not missing any underlying pathology. We then started him on Amicar bladder irrigations. His urine began clearing, but he had a repeat bleed and his hemoglobin decreased to 7. He was taken back to the operating room where he underwent vaporization of the prostatic mucosa and cauterization of the bladder mucosa. He was given 2 units of packed red blood cells and is he low been ian back up to 9.7. His urine cleared with saline irrigation. He is visit being discharged with his Perez catheter in place about 24 hours after his last surgical procedure. At the time of his discharge, he is quite comfortable. He is complaining of some pain at the tip of the penis. His urine is clear. His lungs are clear. His cardiac exam and abdominal exams are normal. Discharge Instructions Instructions: Cystoscopy (DC), Perez Catheter Placement and Care (DC) Additional Instructions: Perez to large drainage bag Catheter plug to irrigation port F/U Monday or for catheter removal Forms: Nursing Discharge Form Referrals: Emely Lopez NP [NURSE PRACTITIONER] - 08/21/18 10:00 am Discharge Data Date/Time: 08/20/18 00:00 Discharge Date/Time-TO BE ENTERED AT DEPARTURE: 08/09/18 14:28 Medical Decision Making 9:55 -- 78-year-old male with history of prostate cancer status post radiation 6 years ago, here 2 days status post cystoscopy with cauterization with continued urinary bleeding requiring frequent irrigation to present clotting and obstruction, failing outpatient therapy. Plan for admission with three-way continuous irrigation. Page to Dr. Bonner and awaiting response. 11:09 -- Spoke with [facility] center to request transfer -- awaiting urology call back 12:45 -- Spoke with [facility] urology who recommends bladder ultrasound to assess clot burden. Recommends admission to general surgery here at [facility]. Spoke with Dr. Moore who will admit. Diagnosis: hematuria Disposition: admit to med/surg by Dr. Moore Please note that unintended delay in signing this ED note may inadvertently result in data populating into my documentation from inpatient hospitalization. HPI General Mode of arrival: ambulatory . Date/Time Provider Initiated Documentation: 08/06/18 09:19 . Limitations to Documentation: no limitations . Information obtained by: patient . HPI Narrative: 78-year-old male with history of prostate cancer, status post radiation about 6 years ago, here with hematuria. Patient has had intermittent and worsening hematuria over the past [address] Bonner, urology, regularly and had a cystoscopy with cauterization on 08/04/18, has Perez catheter which continues to drain bloody urine despite frequent, more than hourly flushes. Bleeding is dark red with clots. Clotting improved with irrigation but then quickly recurs. No associated abdominal pain. No weakness. Related Data Home Medications Medication Instructions Recorded Confirmed finasteride 5 mg tablet 5 mg PO DAILY #30 tab 08/03/18 08/20/18 docusate sodium [Colace] 100 mg PO BID #30 cap 08/04/18 08/20/18 lidocaine HCl [Glydo] 1 applic TP TID PRN #60 ml 08/17/18 08/20/18 sulfamethoxazole-trimethoprim 1 tab PO BID #10 tab 08/17/18 08/20/18 [Bactrim DS] tramadol [Ultram] 50 mg PO Q6H PRN #20 tab 08/17/18 08/20/18 Previous Rx's Medication Instructions Recorded finasteride 5 mg tablet 5 mg PO DAILY #30 tab 08/03/18 docusate sodium [Colace] 100 mg PO BID #30 cap 08/04/18 lidocaine HCl [Glydo] 1 applic TP TID PRN #60 ml 08/17/18 sulfamethoxazole-trimethoprim 1 tab PO BID #10 tab 08/17/18 [Bactrim DS] tramadol [Ultram] 50 mg PO Q6H PRN #20 tab 08/17/18 Allergies Allergy/AdvReac Type Severity Reaction Status Date / Time No Known Allergies Allergy Unverified 08/06/18 09:27 General Stated Complaint: Urinary CAROLINE: 3 Review of Systems Review of Systems All systems reviewed & are unremarkable except as noted in HPI and below PFSH Medical History Urethral stricture (Resolved) Prostate cancer (Chronic) Gross hematuria (Acute) Neoplasm of skin (Resolved 08/12/13) Age-related macular degeneration (Chronic 08/12/13) Macular degeneration (Chronic) Surgical History H/O cystoscopy (Chronic) History of permanent cardiac pacemaker placement (Chronic) Social History Smoking/Tobacco Use Status: Former Tobacco Use alcohol intake: current alcohol intake frequency: holidays/special occasions only Alcohol type: beer and wine substance use type: does not use Exam Const General: cooperative and no acute distress HENMT Head: normocephalic and atraumatic Mouth: moist mucous membranes Eyes Conjunctivae: normal conjunctivae Sclera: normal sclerae EOM: EOM intact bilaterally Resp Auscultation: clear to auscultation bilaterally, no rales, no rhonchi and no wheezes Cardio Jugular venous pressure: no JVD Rate: regular rate and not tachycardic Rhythm: regular rhythm GI Palpation: soft, not firm, no guarding, no masses, not rigid and nontender Other: perez intact draining dark bloody urine with clots Skin General skin exam: no rashes or lesions noted Neuro General: alert, awake, oriented x3 and tone normal Extrem General: no edema Psych Appearance: grossly normal Mental Status: mental status grossly normal Speech and Movement: speech and movement normal Course Vital Signs Temperature 36.4 C L 08/06/18 09:20 Pulse 73 08/06/18 09:20 Respiratory Rate 16 08/06/18 09:20 Blood Pressure 166/76 H 08/06/18 09:20 Pulse Oximetry 100 08/06/18 09:20 Temperature 36.4 C L 08/06/18 09:20 Temperature Source Skin 08/06/18 09:20 Pulse 73 08/06/18 09:20 Respiratory Rate 16 08/06/18 09:20 Respiratory Effort 08/06/18 09:20 Blood Pressure 166/76 H 08/06/18 09:20 Pulse Oximetry 100 08/06/18 09:20 Oxygen Delivery Method Room Air 08/06/18 09:20 Oxygen Flow Rate 0 08/06/18 09:20 Pain Level 3 08/06/18 09:20
[2018-08-06 10:14] LABS: Abs Immature Grans 0.01 k/cumm (0.0-0.09); Absolute Basophil Count 0.03 k/cumm (0.0-0.2); Absolute Monocyte Count 0.84 k/cumm (0.11-0.7); Absolute Neutrophil Count 4.93 k/cumm (1.2-6.7); Basophils % 0.4; Eosinophils % 1.3; HCT 37.1 % (40.0-50.0); HGB 12.8 g/dL (13.5-17.5); Immature Grans % 0.1; Lymphocytes % 23.3; Mean Corp. HGB Concentration 34.5 g/dL (32.0-36.0); Mean Corpuscular Hemoglobin 30.2 pg (27.0-33.0); Mean Corpuscular Volume 87.5 fL (80-95); Mean Platelet Volume 9.3 fL (8.0-11.0); Monocytes % 10.9; Platelet Count 242 x1000/uL (130-400); RBC 4.24 m/cumm (4.50-6.00); RBC Distribution Width 13.1 % (11.8-14.1); White Blood Cell Count 7.71 k/cumm (4.4-10.8)
[2018-08-06 10:29] LABS: ALT 29 U/L (12-78); AST 28 U/L (15-37); Albumin 3.3 g/dL (3.4-5.0); Alkaline Phosphatase 57 U/L (46-116); Anion Gap 10.5 mmol/L (3-11); BUN 13 mg/dL (7-18); Bilirubin, Total 0.8 mg/dL (0.2-1.0); CO2 24.5 mmol/L (21.0-32.0); Calcium 9.2 mg/dL (8.5-10.1); Chloride 102 mmol/L (98-107); Glucose 110 mg/dL (70-100); Magnesium 1.7 mg/dL (1.8-2.4); Potassium 3.5 mmol/L (3.5-5.1); Sodium 137 mmol/L (136-145); Total Protein 6.8 g/dL (6.4-8.2)
[2018-08-06] MEDS: Lidocaine 2% Jelly 6 ML SYR (10:45)
--- NOTE | 2018-08-06 14:05 | DI.US_ITS ---
SYMPTOMS/DIAGNOSIS: BLADDER ULTRASOUND TO ASSESS CLOT BURDEN S/P RADIATION THERAPY RENAL ULTRASOUND: The kidneys are normal in size and shape. There is no evidence of hydronephrosis or nephrolithiasis. Urinary bladder contains a Tang catheter and there is high echogenicity material within the urinary bladder, reportedly this has been previously identified as thrombus. Estimated bladder volume is 253 cc and the net presumed clot volume is 91 cc; this is approximately 36% of the total urinary bladder volume.
[2018-08-06 15:10] VITALS: BP 159/85; PULSE 103; RESP 20; TEMP 36.4; O2SAT 99
[2018-08-06 15:16] VITALS: BP 159/85; PULSE 103; RESP 20; TEMP 36.4; O2SAT 99
[2018-08-06 15:30] VITALS: BP 152/80; PULSE 92; RESP 16; TEMP 36.4; O2SAT 99
--- NOTE | 2018-08-06 15:40 | W.PM.HP.N ---
Date of service: 08/06/18 Time of Service: 15:40 Assessment and Plan (1) Clot retention of urine: Current visit: Yes Status: Acute Admitted for Continuous bladder irrigation (2) Gross hematuria: Current visit: Yes Status: Acute CBI ongoing will consult with urology for further workup. Check labs in AM, advance diet. History of Present Illness Chief Complaint: Hematuria Narrative: 78-year-old gentleman presenting to the emergency room with persistent hematuria. He had undergone cystoscopy with evacuation of clots 4 days ago and had been sent home with instructions for outpatient irrigation of his bladder. He returned today due to persistent hematuria with frequent clots obstructing his Tang. Failing outpatient treatment, it was recommended to be admitted for continuous bladder irrigation for 24 hours. Review of Systems Review of Systems All systems reviewed & are unremarkable except as noted in HPI and below Constitutional Denies chills, Reports difficulty sleeping, Denies fatigue, Denies fever(s), Denies lethargy, Denies night sweats, Denies snoring and Denies weight loss Cardiovascular Denies chest pain, Denies irregular heart rhythm, Denies lightheadedness and Denies radiating jaw, neck or arm pain Respiratory Denies cough, Denies excessive phlegm production, Denies snoring and Denies wheezing Gastrointestinal Denies abdominal pain, Denies bloating, Denies hematochezia, Denies change in bowel habits, Denies constipation, Denies cramping, Denies nausea and Denies vomiting Genitourinary Reports hematuria and Reports dysuria Endocrine Denies fatigue Allergic/Immunologic Denies wheezing PFSH Medical History Urethral stricture (Resolved) Prostate cancer (Chronic) Gross hematuria (Acute) Macular degeneration (Chronic) Surgical History H/O cystoscopy (Chronic) History of permanent cardiac pacemaker placement (Chronic) Social History Smoking/Tobacco Use Status: Former Tobacco Use alcohol intake: current alcohol intake frequency: holidays/special occasions only Alcohol type: beer and wine substance use type: does not use Meds Home Medications Medication Instructions Recorded Confirmed Type oxybutynin chloride 5 mg tablet 5 mg PO TID PRN #20 tab 08/01/18 08/03/18 Rx finasteride 5 mg tablet 5 mg PO DAILY #30 tab 08/03/18 08/06/18 Rx docusate sodium [Colace] 100 mg PO BID #30 cap 08/04/18 08/06/18 Rx Allergies Allergy/AdvReac Type Severity Reaction Status Date / Time No Known Allergies Allergy Unverified 08/06/18 09:27 Exam Const General: cooperative and no acute distress Nutritional Appearance: average body habitus [facility] Head: normal to inspection, normocephalic and atraumatic Ears: hearing grossly normal bilaterally General nose exam: external nose normal Face and sinus: normal facial exam Mouth: oral mucosae normal Eyes General: appearance normal, both eyes and all related structures Periorbital: periorbital findings normal Sclera: sclerae normal Pupils: PERRL EOM: EOM intact bilaterally Neck Neck: normal visual inspection, full ROM, trachea midline and supple Chest Chest: normal inspection of the chest Resp Effort & Inspection: normal respiratory effort Auscultation: clear to auscultation bilaterally Cardio Rate: regular rate Rhythm: regular rhythm Heart Sounds: S1 normal and S2 normal GI Inspection: normal to inspection and non-distended Palpation: soft and tender suprapubicly Rectal Exam: deferred Penis: normal penis Meatus: meatus normal Scrotum: scrotum normal Skin General skin exam: no rashes or lesions noted and turgor normal Neuro General: moves all extremities, no focal motor deficits and CN's II-XI intact bilaterally Extrem General: normal to inspection, full ROM, normal capillary refill and no clubbing, cyanosis or edema Psych Appearance: grossly normal Mental Status: mental status grossly normal Judgment: judgment good Results Imaging Imaging Studies: US:US renal SYMPTOMS/DIAGNOSIS: BLADDER ULTRASOUND TO ASSESS CLOT BURDEN S/P RADIATION THERAPY RENAL ULTRASOUND: The kidneys are normal in size and shape. There is no evidence of hydronephrosis or nephrolithiasis. Urinary bladder contains a Tang catheter and there is high echogenicity material within the urinary bladder, reportedly this has been previously identified as thrombus. Estimated bladder volume is 253 cc and the net presumed clot volume is 91 cc; this is approximately 36% of the total urinary bladder volume. Labs : 08/06/18 10:05 08/06/18 10:05 Laboratory Results - last 24 hr 08/06/18 08/06/18 08/06/18 10:05 10:05 10:05 WBC 7.71 RBC 4.24 L Hgb 12.8 L Hct 37.1 L MCV 87.5 MCH 30.2 MCHC 34.5 RDW 13.1 Plt Count 242 MPV 9.3 Immature Gran % 0.1 Neutrophils % 64.0 Lymphocytes % 23.3 Monocytes % 10.9 Eosinophils % 1.3 Basophils % 0.4 Absolute Neutrophils 4.93 Absolute Lymphocytes 1.80 Absolute Monocytes 0.84 H Absolute Eosinophils 0.10 Absolute Basophils 0.03 Sodium 137 Potassium 3.5 Chloride 102 Carbon Dioxide 24.5 Anion Gap 10.5 BUN 13 Creatinine 1.10 Estimated GFR/1.73 m2 >= 60.00 Glucose 110 H Calcium 9.2 Magnesium 1.7 L Total Bilirubin 0.8 AST 28 ALT 29 Alkaline Phosphatase 57 Total Protein 6.8 Albumin 3.3 L Patient ABO/Rh O Positive Antibody Screen Negative Last Vital Signs Temp 36.4 C L 08/06/18 15:16 Pulse 103 H 08/06/18 15:16 Resp 20 08/06/18 15:16 BP 159/85 H 08/06/18 15:16 Pulse Ox 99 08/06/18 15:16
[2018-08-06 19:16] VITALS: BP 127/86; PULSE 88; RESP 18; TEMP 36.3; O2SAT 98
[2018-08-06] MEDS: Docusate Sodium 100 MG CAP PO (19:29)
[2018-08-06] MEDS: Acetaminophen 325 MG TAB 650 MG PO (20:51)
[2018-08-06] MEDS: Normal Saline Flush 10 ML SYR IVP (20:52)
[2018-08-07] MEDS: Acetaminophen 325 MG TAB 650 MG PO ×2 (02:34→16:24)
[2018-08-07 03:49] VITALS: BP 187/79; PULSE 70; RESP 18; TEMP 36.2; O2SAT 97
[2018-08-07 06:07] LABS: Abs Immature Grans 0.02 k/cumm (0.0-0.09); Absolute Basophil Count 0.02 k/cumm (0.0-0.2); Absolute Eosinophil Count 0.23 k/cumm (0.0-0.7); Absolute Lymphocyte Count 1.87 k/cumm (1.2-3.4); Absolute Monocyte Count 0.67 k/cumm (0.11-0.7); Absolute Neutrophil Count 3.21 k/cumm (1.2-6.7); Basophils % 0.3; Eosinophils % 3.8; HCT 35.2 % (40.0-50.0); HGB 11.8 g/dL (13.5-17.5); Immature Grans % 0.3; Lymphocytes % 31.1; Mean Corp. HGB Concentration 33.5 g/dL (32.0-36.0); Mean Corpuscular Hemoglobin 29.8 pg (27.0-33.0); Mean Corpuscular Volume 88.9 fL (80-95); Mean Platelet Volume 9.2 fL (8.0-11.0); Monocytes % 11.1; Neutrophils % 53.4; Platelet Count 228 x1000/uL (130-400); RBC 3.96 m/cumm (4.50-6.00); RBC Distribution Width 13.3 % (11.8-14.1); White Blood Cell Count 6.02 k/cumm (4.4-10.8)
[2018-08-07 06:14] LABS: Anion Gap 8.1 mmol/L (3-11); BUN 16 mg/dL (7-18); CO2 25.9 mmol/L (21.0-32.0); CREATININE 0.98 mg/dL (0.70-1.30); Calcium 8.6 mg/dL (8.5-10.1); Chloride 105 mmol/L (98-107); Glucose 97 mg/dL (70-100); INR 1.1 (1.0-3.5); PHOSPHORUS 3.1 mg/dL (2.6-4.7); PTT Activated 23.2 sec (21.0-31.4); Sodium 139 mmol/L (136-145)
--- NOTE | 2018-08-07 07:15 | PDOC.CMIN ---
- If Service Date Differs Date of service: 08/07/18 Time of Service: 07:15 Care Management Initial Assess REASON FOR HOSPITALIZATION:: Gross Hematuria, and CBI status post cystoscopy x 4 days ago. PAST MEDICAL HISTORY/PAST SURGICAL HISTORY:: Prostate cancer, neoplasam of the skin, macular degeneration. PREVIOUS FUNCTIONAL STATUS/SOCIAL/FAMILY SUPPORTS:: Romel lives in [place], [place] right now alone. He has a female partner that is out of the area at this time she will return in a week. He is indpendent with ADL's and transportation. 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 He does not have any equipment at home and enjoys hunting and fishing when he is able. CURRENT FUNCTIONAL STATUS:: Romel is alert and engaged during assessment. Romel reports that prior to admission he has had at least 17 encounters over the past few weeks r/t bleeding and being unable to void. On Monday he reports he has a cystoscopy and then returned home. He states he has not been able to sleep over the past two weeks and has been trying to manage the bleeding at home. He reports he has not been sleeping when at home due to the pain, bladder spasms and bleeding. He was having to flush the cath multiple times to keep it draining. Per report he did make a statement that he wish he was home with his gun. Romel denies suicidal ideation at the time of CM visit, he states he is tierd, and the situation has been frustrating for him. He states he does not have support at home right now so he has been trying to manage at home. ADVANCE DIRECTIVES:: On file at [facility] Has patient been provided with information about the portal?: Yes Did the patient sign up for the portal?: No CODE STATUS:: Full Code INSURANCE COVERAGE / FINANCIAL ISSUES:: BCBS and Medicare CURRENT HOME/COMMUNITY SERVICES/EQUIPMENT:: No services at this time. PRIMARY CARE PHYSICIAN:: POTENTIAL DISCHARGE NEEDS:: Follow up appointment with urology services and primary care provider. PATIENT/FAMILY EDUCATION NEEDS:: Discharge education, limitations and follow up plan of care including when to contact provider, self management and ask me three discussion. ANTICIPATED BARRIERS TO DISCHARGE:: None identified. TRANSPORTATION:: Via private car with family at time of discharge. PLAN:: Romel is currently observation he will discharge home when medically ready. Anticipate no addtional services at time of discharge and follow up with urology services. CM to continue to provide support to pt discharge planning.
--- NOTE | 2018-08-07 07:31 | INITIAL_ITS ---
- If Service Date Differs Date of service: 08/07/18 Time of Service: 07:15 Care Management Initial Assess REASON FOR HOSPITALIZATION:: Gross Hematuria, and CBI status post cystoscopy x 4 days ago. PAST MEDICAL HISTORY/PAST SURGICAL HISTORY:: Prostate cancer, neoplasam of the skin, macular degeneration. PREVIOUS FUNCTIONAL STATUS/SOCIAL/FAMILY SUPPORTS:: Romel lives in [place], [place] right now alone. He has a female partner that is out of the area at this time she will return in a week. He is indpendent with ADL's and transportation. 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 He does not have any equipment at home and enjoys hunting and fishing when he is able. CURRENT FUNCTIONAL STATUS:: Romel is alert and engaged during assessment. Romel reports that prior to admission he has had at least 17 encounters over the past few weeks r/t bleeding and being unable to void. On Monday he reports he has a cystoscopy and then returned home. He states he has not been able to sleep over the past two weeks and has been trying to manage the bleeding at home. He reports he has not been sleeping when at home due to the pain, bladder spasms and bleeding. He was having to flush the cath multiple times to keep it draining. Per report he did make a statement that he wish he was home with his gun. Romel denies suicidal ideation at the time of CM visit, he states he is tierd, and the situation has been frustrating for him. He states he does not have support at home right now so he has been trying to manage at home. ADVANCE DIRECTIVES:: On file at [facility] Has patient been provided with information about the portal?: Yes Did the patient sign up for the portal?: No CODE STATUS:: Full Code INSURANCE COVERAGE / FINANCIAL ISSUES:: BCBS and Medicare CURRENT HOME/COMMUNITY SERVICES/EQUIPMENT:: No services at this time. PRIMARY CARE PHYSICIAN:: POTENTIAL DISCHARGE NEEDS:: Follow up appointment with urology services and primary care provider. PATIENT/FAMILY EDUCATION NEEDS:: Discharge education, limitations and follow up plan of care including when to contact provider, self management and ask me three discussion. ANTICIPATED BARRIERS TO DISCHARGE:: None identified. TRANSPORTATION:: Via private car with family at time of discharge. PLAN:: Romel is currently observation he will discharge home when medically ready. Anticipate no addtional services at time of discharge and follow up with urology services. CM to continue to provide support to pt discharge planning.
[2018-08-07] MEDS: Finasteride 5 MG TAB PO (07:41)
[2018-08-07] MEDS: Docusate Sodium 100 MG CAP PO ×2 (07:41→19:41)
[2018-08-07] MEDS: Normal Saline Flush 10 ML SYR IVP ×2 (07:41→16:24)
[2018-08-07 07:45] VITALS: BP 134/82; PULSE 74; RESP 19; TEMP 36.6; O2SAT 98
--- NOTE | 2018-08-07 09:45 | NUR.NOTE ---
Nursing Note:[id number] Pt reportedly told nursing staff during the night when his 3 way perez was not working that he should have signed out AMA and gone home where he has a gun. This nurse just checked in with the patient. He denies suicidal ideation at this time. He did say that it was a good thing he hadn't been home several times through his illness. Pt was cautioned to tell someone if he again feels like he is going to kill himself. I'm fine.
--- NOTE | 2018-08-07 11:06 | PHARADMIT ---
Addendum entered by Ángel Olivares III 08/15/18 11:43: Pharmacy Note Subjective Clots in urine continuing, MD may take patient back to the OR, NPO. Objective VS-OK H&H-8.3/24.9 Hematuria, Last BM 08/12 Assessment Received 3 doses of Dilaudid overnight, no med changes Plan Awaiting MD decision tomorrow for OR Original Note: Addendum entered by Ángel Olivares III 08/10/18 11:30: Pharmacy Note Subjective Amicar bladder infusion dC'd. Saline irrigation now. Objective VS-OK BP- 175/92 H&H-down 9.5/29.1 Lytes-OK Assessment Opium/Belladona continues, IV meds and fluids dc'd. Plan Plan is for discharge tomorr or Monday Original Note: Addendum entered by Margarita Crowley 08/09/18 15:48: Pharmacy Note Subjective pt had cystoscopy today Objective BP-162/87 h/h-11.2/33.6(down) Assessment aminocaproic acid ordered intravesically opium beladonna suppositories ordered Q6H PRN ketorolac ordered Q6H Plan continue to watch VS, labs and for med changes Original Note: Admission Pharmacy Clinical Review Hematuria Code Status Full Code Current Weight Wgt-86.7 kg Renally Cleared and Narrow Therapeutic Index Meds CrCl~ 60 mL/min Meds-OK QTc Value / Action Taken QTc-499 (Zofran) BP Control, Fever BP- 134/82 Tmax- 36.6C Electrolytes reviewed Na- 139 K+4.0 Mag-2.0 DVT Prophylaxis none Opiate Usage / Scheduled Bowel Regimen Ordered No Yes Plt/SCr for Heparin / Enoxaparin Plts-228 SCr-0.98 INR for Warfarin na H/H stable, WBC/Bands H&H- 11.8/35.2 (was 12.8/37.1) WBC- 6.02 Antibiotic appropriateness none Cultures and Sensitivities None Surgical ABX d/c within 24 hr na DM control / Insulin Dosing BG- 97 Heart Failure (Check EF%) (ISRA's, B-Block, Diuretics) None IV to PO Switch No Home Meds Reviewed Yes Home Meds Not Ordered Ditropan,Keflex, MacroBid Comments
[2018-08-07 11:21] VITALS: BP 140/80; PULSE 57; RESP 16; TEMP 37; O2SAT 99
--- NOTE | 2018-08-07 13:58 | W.PM.PROGNOT ---
Date of Service Date of service: 08/07/18 Time of Service: 07:00 Assessment and Plan (1) Clot retention of urine: Current visit: Yes Status: Acute Continuen CBI, exchange three way catheter for 24 grenadian if continues to have problems. Plan to stop CBI tomorrow assess for drainage without irrigation. (2) Gross hematuria: Current visit: Yes Status: Acute CBI ongoing,H&H stable, electrolytes normal. Subjective Patient reports: no new complaints, feels better, tolerating a regular diet, voiding w/o difficulty (Three way catheter intermittent clotting off) and afebrile; denies nausea and vomiting Interval history since last seen: Issues with CBI overnight, catheter was blocked multiple times. Exam Const General: cooperative and no acute distress Orientation: alert, awake and oriented x3 Chest Chest: normal inspection of the chest and pacemaker Resp Effort & Inspection: normal respiratory effort, able to speak in complete sentences and not labored Auscultation: clear to auscultation bilaterally Cardio Jugular venous pressure: no JVD Rate: regular rate Rhythm: regular rhythm Heart Sounds: S1 normal and S2 normal GI Inspection: normal to inspection and non-distended Palpation: firm, not rigid and nontender Rectal Exam: deferred General: No CVA tenderness and other (urine light pink to red, less sediment present) Penis: normal penis Meatus: meatus normal Scrotum: scrotum normal Skin General skin exam: no rashes or lesions noted and turgor normal Neuro General: moves all extremities, no focal motor deficits and CN's II-XI intact bilaterally Extrem General: full ROM, normal capillary refill and no clubbing, cyanosis or edema Psych Appearance: grossly normal Mental Status: mental status grossly normal Attitude: cooperative Judgment: judgment good Objective Objective Clinical Data: Vital Signs Temperature 37.0 C 08/07/18 11:21 Temperature Source Skin 08/07/18 11:21 Pulse 57 L 08/07/18 11:21 Pulse Rhythm Regular 08/07/18 07:35 Respiratory Rate 16 08/07/18 11:21 Respiratory Effort Non-Labored 08/07/18 07:35 Respiratory Depth Normal 08/07/18 07:35 Respiratory Pattern Normal 08/07/18 07:35 Blood Pressure 140/80 08/07/18 11:21 Pulse Oximetry 99 08/07/18 11:21 Oxygen Delivery Method Room Air 08/07/18 11:21 Oxygen Flow Rate 0 08/07/18 11:21 Pain Level 0 08/07/18 11:21 Intake & Output 08/06/18 08/07/18 08/07/18 18:59 06:59 18:59 Intake Total 460 / 460 Balance 460 / 460 Weight 86.7 kg Intake: IV Oral 450 / 450 Other: Urine Color Bright Red Bright Red Urine Appearance Hematuria Hematuria Hematuria Clots Clots Clots Comment HAnd irrigated w several clots difficult to get going. ZRepositioned three way cath w some releif of obstruction and is now running slowly. MD Moore in and aware. no flow from catheter or irrigation, while hand irrigation fluid goes in minimal to no output, MD notified Laboratory Results WBC 6.02 k/cumm (4.4-10.8) 08/07/18 05:47 RBC 3.96 m/cumm (4.50-6.00) L 08/07/18 05:47 Hgb 11.8 g/dL (13.5-17.5) L 08/07/18 05:47 Hct 35.2 % (40.0-50.0) L 08/07/18 05:47 MCV 88.9 fL (80-95) 08/07/18 05:47 MCH 29.8 pg (27.0-33.0) 08/07/18 05:47 MCHC 33.5 g/dL (32.0-36.0) 08/07/18 05:47 RDW 13.3 % (11.8-14.1) 08/07/18 05:47 Plt Count 228 x1000/uL (130-400) 08/07/18 05:47 MPV 9.2 fL (8.0-11.0) 08/07/18 05:47 Immature Gran % 0.3 08/07/18 05:47 Neutrophils % 53.4 08/07/18 05:47 Lymphocytes % 31.1 08/07/18 05:47 Monocytes % 11.1 08/07/18 05:47 Eosinophils % 3.8 08/07/18 05:47 Basophils % 0.3 08/07/18 05:47 Absolute Neutrophils 3.21 k/cumm (1.2-6.7) 08/07/18 05:47 Absolute Lymphocytes 1.87 k/cumm (1.2-3.4) 08/07/18 05:47 Absolute Monocytes 0.67 k/cumm (0.11-0.7) 08/07/18 05:47 Absolute Eosinophils 0.23 k/cumm (0.0-0.7) 08/07/18 05:47 Absolute Basophils 0.02 k/cumm (0.0-0.2) 08/07/18 05:47 PT 11.0 sec (9.3-11.0) 08/07/18 05:47 INR 1.1 (1.0-3.5) 08/07/18 05:47 APTT 23.2 sec (21.0-31.4) 08/07/18 05:47 Sodium 139 mmol/L (136-145) 08/07/18 05:47 Potassium 4.0 mmol/L (3.5-5.1) 08/07/18 05:47 Chloride 105 mmol/L (98-107) 08/07/18 05:47 Carbon Dioxide 25.9 mmol/L (21.0-32.0) 08/07/18 05:47 Anion Gap 8.1 mmol/L (3-11) 08/07/18 05:47 BUN 16 mg/dL (7-18) 08/07/18 05:47 Creatinine 0.98 mg/dL (0.70-1.30) 08/07/18 05:47 Estimated GFR/1.73 m2 >= 60.00 (mL/min/1.73m2) 08/07/18 05:47 Glucose 97 mg/dL (70-100) 08/07/18 05:47 Calcium 8.6 mg/dL (8.5-10.1) 08/07/18 05:47 Phosphorus 3.1 mg/dL (2.6-4.7) 08/07/18 05:47 Magnesium 2.0 mg/dL (1.8-2.4) 08/07/18 05:47 Total Bilirubin 0.8 mg/dL (0.2-1.0) 08/06/18 10:05 AST 28 U/L (15-37) 08/06/18 10:05 ALT 29 U/L (12-78) 08/06/18 10:05 Alkaline Phosphatase 57 U/L (46-116) 08/06/18 10:05 Total Protein 6.8 g/dL (6.4-8.2) 08/06/18 10:05 Albumin 3.3 g/dL (3.4-5.0) L 08/06/18 10:05 Patient ABO/Rh O Positive 08/06/18 10:05 Antibody Screen Negative 08/06/18 10:05
[2018-08-07 15:47] VITALS: BP 174/71; PULSE 69; RESP 18; TEMP 37.1; O2SAT 99
--- NOTE | 2018-08-07 18:13 | NUR.NOTE ---
Patient complained that the CBI is not draining satisfactorily and he has had a very bad night last night because of the clots that keeps building up into the perez. The perez was changed to a size 24French perez. Same progressing satisfactorily at this time.
[2018-08-07] MEDS: Milk of Magnesia 30 ML CUP PO (19:41)
[2018-08-07 19:42] VITALS: BP 129/80; PULSE 72; RESP 18; TEMP 36.4; O2SAT 98
[2018-08-07 23:50] VITALS: BP 146/84; PULSE 73; RESP 18; TEMP 36.4; O2SAT 98
[2018-08-08 04:50] VITALS: BP 166/92; PULSE 82; RESP 16; TEMP 35.6; O2SAT 99
[2018-08-08] MEDS: Finasteride 5 MG TAB PO (08:23)
[2018-08-08] MEDS: Acetaminophen 325 MG TAB 650 MG PO (08:23)
[2018-08-08 10:00] VITALS: BP 149/72; PULSE 53; RESP 20; TEMP 36.5; O2SAT 99
--- NOTE | 2018-08-08 12:49 | DI.US_ITS ---
SYMPTOMS/DIAGNOSIS: HEMATURIA, EVALUATE BLADDER CLOT/BLADDER VOLUMES RENAL ULTRASOUND: Ultrasound was performed to evaluate clot burden of the urinary bladder. Comparison with the previous examination of August 06 shows estimated thrombus on today's examination about 150 cc as compared to 90 cc on the previous examination. Total bladder volume today 280 cc. Tang catheter again noted in place. Limited scanning of the kidneys shows no evidence of hydronephrosis.
[2018-08-08] MEDS: Oxybutynin 5 MG TAB PO ×2 (13:54→20:33)
[2018-08-08 13:55] VITALS: BP 143/82; PULSE 89; RESP 20; TEMP 36.4; O2SAT 99
--- NOTE | 2018-08-08 16:44 | W.PM.PROGNOT ---
Date of Service Date of service: 08/08/18 Time of Service: 09:00 Assessment and Plan (1) Clot retention of urine: Current visit: Yes Status: Acute CBI held this am, drainage continued to be red, so CBI restarted, otherwise no new issues, contacted Dr. Bonner urology plan for cystoscopy tomorrow morning (2) Gross hematuria: Current visit: Yes Status: Acute CBI restarted recheck labs in AM Subjective Patient reports: no new complaints, feels better, tolerating a regular diet, flatus, bowel movement and afebrile; denies nausea and vomiting Interval history since last seen: Slept well last night, CBI worked well with larger catheter. Exam Const General: cooperative and no acute distress Nutritional Appearance: average body habitus Orientation: alert, awake and oriented x3 Chest Chest: normal inspection of the chest and pacemaker Resp Effort & Inspection: normal respiratory effort, able to speak in complete sentences and not labored Auscultation: clear to auscultation bilaterally Cardio Jugular venous pressure: no JVD Rate: regular rate Rhythm: regular rhythm Heart Sounds: S1 normal and S2 normal GI Inspection: normal to inspection and non-distended Palpation: soft, firm, not rigid and nontender Rectal Exam: deferred General: No CVA tenderness and other (urine red after stopping CBI) Penis: normal penis Meatus: meatus normal Scrotum: scrotum normal Skin General skin exam: no rashes or lesions noted and turgor normal Extrem General: normal to inspection, full ROM, normal capillary refill and no clubbing, cyanosis or edema Psych Appearance: grossly normal Mental Status: mental status grossly normal Attitude: cooperative Judgment: judgment good Objective Objective Clinical Data: Vital Signs Temperature 36.4 C L 08/08/18 13:55 Temperature Source Tympanic 08/08/18 13:55 Pulse 89 08/08/18 13:55 Pulse Rhythm Regular 08/08/18 09:26 Respiratory Rate 20 08/08/18 13:55 Respiratory Effort 08/08/18 09:26 Respiratory Depth Normal 08/08/18 09:26 Respiratory Pattern Normal 08/08/18 09:26 Blood Pressure 143/82 H 08/08/18 13:55 Pulse Oximetry 99 08/08/18 13:55 Oxygen Delivery Method Room Air 08/08/18 13:55 Oxygen Flow Rate 0 08/08/18 13:55 Pain Level 0 08/08/18 13:55 Intake & Output 08/07/18 08/08/18 08/08/18 18:59 06:59 18:59 Intake Total 470 / 710 240 / 710 615 / 615 Output Total 06492 / 55985 6025 / 6025 Balance 470 / -45398 -00559 / -53536 -5410 / -5410 Intake: IV Oral 450 / 690 240 / 690 615 / 615 Output: Urine 10436 / 20716 6025 / 6025 Other: Urine Color Dark Red Bright Red Ag Urine Appearance Hematuria Hematuria Hematuria Clots Comment hand irrigated several times throughout this shift. several long strips of clots. MD aware and in a couple times. Very positional. Ranges from ag to pink w frequent bouts of stopping flow. replaced 2 2700cc irrigation bags with 2 full irrigation bags. ROCAEL Hess notified Stool Size Moderate Stool Characteristics Formed US:US renal SYMPTOMS/DIAGNOSIS: HEMATURIA, EVALUATE BLADDER CLOT/BLADDER VOLUMES RENAL ULTRASOUND: Ultrasound was performed to evaluate clot burden of the urinary bladder. Comparison with the previous examination of August 06 shows estimated thrombus on today's examination about 150 cc as compared to 90 cc on the previous examination. Total bladder volume today 280 cc. Tang catheter again noted in place. Limited scanning of the kidneys shows no evidence of hydronephrosis.
--- NOTE | 2018-08-08 16:47 | PGE_ITS ---
Date of Service Date of service: 08/08/18 Time of Service: 09:00 Assessment and Plan (1) Clot retention of urine: Current visit: Yes Status: Acute CBI held this am, drainage continued to be red, so CBI restarted, otherwise no new issues, contacted Dr. Bonner urology plan for cystoscopy tomorrow morning (2) Gross hematuria: Current visit: Yes Status: Acute CBI restarted recheck labs in AM Subjective Patient reports: no new complaints, feels better, tolerating a regular diet, flatus, bowel movement and afebrile; denies nausea and vomiting Interval history since last seen: Slept well last night, CBI worked well with larger catheter. Exam Const General: cooperative and no acute distress Nutritional Appearance: average body habitus Orientation: alert, awake and oriented x3 Chest Chest: normal inspection of the chest and pacemaker Resp Effort & Inspection: normal respiratory effort, able to speak in complete sentences and not labored Auscultation: clear to auscultation bilaterally Cardio Jugular venous pressure: no JVD Rate: regular rate Rhythm: regular rhythm Heart Sounds: S1 normal and S2 normal GI Inspection: normal to inspection and non-distended Palpation: soft, firm, not rigid and nontender Rectal Exam: deferred General: No CVA tenderness and other (urine red after stopping CBI) Penis: normal penis Meatus: meatus normal Scrotum: scrotum normal Skin General skin exam: no rashes or lesions noted and turgor normal Extrem General: normal to inspection, full ROM, normal capillary refill and no clubbing, cyanosis or edema Psych Appearance: grossly normal Mental Status: mental status grossly normal Attitude: cooperative Judgment: judgment good Objective Objective Clinical Data: Vital Signs Temperature 36.4 C L 08/08/18 13:55 Temperature Source Tympanic 08/08/18 13:55 Pulse 89 08/08/18 13:55 Pulse Rhythm Regular 08/08/18 09:26 Respiratory Rate 20 08/08/18 13:55 Respiratory Effort 08/08/18 09:26 Respiratory Depth Normal 08/08/18 09:26 Respiratory Pattern Normal 08/08/18 09:26 Blood Pressure 143/82 H 08/08/18 13:55 Pulse Oximetry 99 08/08/18 13:55 Oxygen Delivery Method Room Air 08/08/18 13:55 Oxygen Flow Rate 0 08/08/18 13:55 Pain Level 0 08/08/18 13:55 Intake & Output 08/07/18 08/08/18 08/08/18 18:59 06:59 18:59 Intake Total 470 / 710 240 / 710 615 / 615 Output Total 74183 / 58757 6025 / 6025 Balance 470 / -57634 -73686 / -64864 -5410 / -5410 Intake: IV Oral 450 / 690 240 / 690 615 / 615 Output: Urine 16379 / 07059 6025 / 6025 Other: Urine Color Dark Red Bright Red Ag Urine Appearance Hematuria Hematuria Hematuria Clots Comment hand irrigated several times throughout this shift. several long strips of clots. MD aware and in a couple times. Very positional. Ranges from ag to pink w frequent bouts of stopping flow. replaced 2 2700cc irrigation bags with 2 full irrigation bags. ROCAEL Hess notified Stool Size Moderate Stool Characteristics Formed US:US renal SYMPTOMS/DIAGNOSIS: HEMATURIA, EVALUATE BLADDER CLOT/BLADDER VOLUMES RENAL ULTRASOUND: Ultrasound was performed to evaluate clot burden of the urinary bladder. Comparison with the previous examination of August 06 shows estimated thrombus on today's examination about 150 cc as compared to 90 cc on the previous examination. Total bladder volume today 280 cc. Tang catheter again noted in place. Limited scanning of the kidneys shows no evidence of hydronephrosis.
--- NOTE | 2018-08-08 17:06 | PDOC.CMPRO ---
- If Service Date Differs Date of service: 08/08/18 Time of Service: 17:06 Care Management Progress Note S/O: CM met with patient at the bedside he is alert and engaged he was up ambulating today several times in the [place]. Romel's CBI was restarted this morning. Provider contacted plan is for Romel to return to the OR for cystoscopy on . A:Romel is a 78 year old male admitted with hematuria post cystoscopy with . P:Romel will return home when medically ready per provider. He will follow up with and primary care as directed. Anticipate no home health services unless he returns home with a indwelling perez and will need additional support at home. His friend Lise will transport him home at time of discharge via private car.
[2018-08-08 20:11] VITALS: BP 167/72; PULSE 89; RESP 18; TEMP 36.8; O2SAT 100
[2018-08-08 23:30] VITALS: BP 143/80; PULSE 71; RESP 14; TEMP 36.4; O2SAT 99
[2018-08-09] VITALS (11 sets, daily range): BP systolic 144–181; BP diastolic 80–98; PULSE 69–90; RESP 13–20; TEMP 36–37.1; O2SAT 96–100
--- NOTE | 2018-08-09 02:29 | NUR.NOTE ---
Nursing Note:[id number] pt at approximately [address] that his 3 [address] irrigation continued to run. This nurse checked the MD's orders and confirmed that the 3-way irrigation should be running. The drainage in the perez bag continues to be nelson red. This nurse returned to the patient and explained that this nurse was following the MD's orders and explained why the irrigation needed to continue - to prevent clots. At 0200 the patient rang his call bauman. A METAL WELDER answered the call bauman. According to the METAL WELDER the patient continues to be upset that the three way continues to run. This nurse asked a second nurse to verify the MD's order and attempt to reassure the patient. The second nurse did so and told this nurse that the patient remains upset. The nursing supervisor mattress and boxsprings was notified.
[2018-08-09 07:12] LABS: HCT 33.6 % (40.0-50.0); HGB 11.2 g/dL (13.5-17.5); Mean Corp. HGB Concentration 33.3 g/dL (32.0-36.0); Mean Corpuscular Volume 90.1 fL (80-95); Mean Platelet Volume 9.4 fL (8.0-11.0); Platelet Count 284 x1000/uL (130-400); RBC 3.73 m/cumm (4.50-6.00); RBC Distribution Width 13.6 % (11.8-14.1); White Blood Cell Count 8.42 k/cumm (4.4-10.8)
[2018-08-09 07:25] LABS: Anion Gap 10.6 mmol/L (3-11); BUN 15 mg/dL (7-18); CO2 24.4 mmol/L (21.0-32.0); CREATININE 1.16 mg/dL (0.70-1.30); Calcium 8.8 mg/dL (8.5-10.1); Chloride 103 mmol/L (98-107); Glucose 139 mg/dL (70-100); Potassium 3.6 mmol/L (3.5-5.1); Sodium 138 mmol/L (136-145)
[2018-08-09] MEDS: Docusate Sodium 100 MG CAP PO (08:22)
[2018-08-09] MEDS: Finasteride 5 MG TAB PO (08:23)
[2018-08-09] MEDS: Oxybutynin 5 MG TAB PO ×3 (08:23→20:21)
--- NOTE | 2018-08-09 08:55 | W.PM.PROGNOT ---
Date of Service Date of service: 08/09/18 Time of Service: 08:55 Subjective Patient reports: no new complaints Interval history since last seen: pt was on our service treated with a CBI urology to take to the or and transfer to their service will S/O after transfer Objective Objective Clinical Data: Abnormal lab results 08/09/18 08/09/18 Range/Units 06:30 06:35 RBC 3.73 L (4.50-6.00) m/cumm Hgb 11.2 L (13.5-17.5) g/dL Hct 33.6 L (40.0-50.0) % Glucose 139 H (70-100) mg/dL Vital Signs Temperature 36.4 C L 08/08/18 23:30 Temperature Source Core 08/08/18 23:30 Pulse 71 08/08/18 23:30 Pulse Rhythm Regular 08/09/18 01:21 Respiratory Rate 14 08/08/18 23:30 Respiratory Effort Non-Labored 08/09/18 01:21 Respiratory Depth Normal 08/09/18 01:21 Respiratory Pattern Normal 08/09/18 01:21 Blood Pressure 143/80 H 08/08/18 23:30 Pulse Oximetry 99 08/08/18 23:30 Oxygen Delivery Method Room Air 08/08/18 23:30 Oxygen Flow Rate 0 08/08/18 23:30 Pain Level 0 08/08/18 23:30 Intake & Output 08/08/18 08/08/18 08/09/18 11:59 23:59 11:59 Intake Total 365 / 1655 1290 / 1655 Output Total 11007 / 95708 5100 / 69665 Balance -10897 / -62664 -3810 / -78184 Intake: Oral 365 / 1655 1290 / 1655 Output: Urine 19924 / 47702 5100 / 59062 Other: Urine Color Ag Ag Ag Dark Red Urine Appearance Hematuria Clear Hematuria Clots Comment 2 2700cc bags irrigated/infused, 2 new 2700cc bags hung Flowing well ,continuous irrigation from 1929-5482 emptied 2100 mls pink ag urine/flow from continuous irrigation Stool Size Moderate Small Stool Characteristics Formed Soft Brown Laboratory Results WBC 8.42 k/cumm (4.4-10.8) 08/09/18 06:30 RBC 3.73 m/cumm (4.50-6.00) L 08/09/18 06:30 Hgb 11.2 g/dL (13.5-17.5) L 08/09/18 06:30 Hct 33.6 % (40.0-50.0) L 08/09/18 06:30 MCV 90.1 fL (80-95) 08/09/18 06:30 MCH 30.0 pg (27.0-33.0) 08/09/18 06:30 MCHC 33.3 g/dL (32.0-36.0) 08/09/18 06:30 RDW 13.6 % (11.8-14.1) 08/09/18 06:30 Plt Count 284 x1000/uL (130-400) 08/09/18 06:30 MPV 9.4 fL (8.0-11.0) 08/09/18 06:30 Immature Gran % 0.3 08/07/18 05:47 Neutrophils % 53.4 08/07/18 05:47 Lymphocytes % 31.1 08/07/18 05:47 Monocytes % 11.1 08/07/18 05:47 Eosinophils % 3.8 08/07/18 05:47 Basophils % 0.3 08/07/18 05:47 Absolute Neutrophils 3.21 k/cumm (1.2-6.7) 08/07/18 05:47 Absolute Lymphocytes 1.87 k/cumm (1.2-3.4) 08/07/18 05:47 Absolute Monocytes 0.67 k/cumm (0.11-0.7) 08/07/18 05:47 Absolute Eosinophils 0.23 k/cumm (0.0-0.7) 08/07/18 05:47 Absolute Basophils 0.02 k/cumm (0.0-0.2) 08/07/18 05:47 PT 11.0 sec (9.3-11.0) 08/07/18 05:47 INR 1.1 (1.0-3.5) 08/07/18 05:47 APTT 23.2 sec (21.0-31.4) 08/07/18 05:47 Sodium 138 mmol/L (136-145) 08/09/18 06:35 Potassium 3.6 mmol/L (3.5-5.1) 08/09/18 06:35 Chloride 103 mmol/L (98-107) 08/09/18 06:35 Carbon Dioxide 24.4 mmol/L (21.0-32.0) 08/09/18 06:35 Anion Gap 10.6 mmol/L (3-11) 08/09/18 06:35 BUN 15 mg/dL (7-18) 08/09/18 06:35 Creatinine 1.16 mg/dL (0.70-1.30) 08/09/18 06:35 Estimated GFR/1.73 m2 >= 60.00 (mL/min/1.73m2) 08/09/18 06:35 Glucose 139 mg/dL (70-100) H 08/09/18 06:35 Calcium 8.8 mg/dL (8.5-10.1) 08/09/18 06:35 Phosphorus 3.1 mg/dL (2.6-4.7) 08/07/18 05:47 Magnesium 2.0 mg/dL (1.8-2.4) 08/07/18 05:47 Total Bilirubin 0.8 mg/dL (0.2-1.0) 08/06/18 10:05 AST 28 U/L (15-37) 08/06/18 10:05 ALT 29 U/L (12-78) 08/06/18 10:05 Alkaline Phosphatase 57 U/L (46-116) 08/06/18 10:05 Total Protein 6.8 g/dL (6.4-8.2) 08/06/18 10:05 Albumin 3.3 g/dL (3.4-5.0) L 08/06/18 10:05 Patient ABO/Rh O Positive 08/06/18 10:05 Antibody Screen Negative 08/06/18 10:05
[2018-08-09] MEDS: Normal Saline Flush 10 ML SYR IVP (09:15)
--- NOTE | 2018-08-09 10:25 | PDOC.CMPRO ---
- If Service Date Differs Date of service: 08/09/18 Time of Service: 10:25 Care Management Progress Note S/O: CM met with with patient at the bedside he continues to have continuos bladder irrigation this morning plan to have cystoscopy with this afternoon. Romel will return home with no anticipated services at time of discharge. A:Romel is a 78 year old male admitted with hematuria post cystoscopy with . P:Romel will return home when medically ready per provider. He will follow up with and primary care as directed. Anticipate no home health services unless he returns home with a indwelling perez and will need additional support at home. His friend Lise will transport him home at time of discharge via private car.
[2018-08-09] MEDS: Lactated Ringers 1,000 ML 100 ML IV (14:15)
[2018-08-09] MEDS: Lidocaine 2% Jelly 6 ML SYR (14:34)
--- NOTE | 2018-08-09 14:35 | BLADDER_PTH ---
PATIENT: NORY FLEMING LOC: U#:[id number] AGE/SX: 78/M ROOM: 209 RE08/07/[address]: David Bonner MD : 1940 BED: A DIS: 08/17/2018 SPEC #: [id number] RECD: 08/09/18 17:59 STATUS: NORA REQ #: [id number] PATO: 08/09/18 14:[address]: David Bonner DEPT: Surgical Specimen RECD BY: Damaris Presley ENTERED: 08/09/18 18:00 SP TYPE: Bladder OTHR DR: Lizette Zamora V Tissues: 1 - BLADDER BIOPSY 2 - PROSTATE CURRETTINGS Procedures: GROSS AND MICRO LEVEL 4 Comments: [id number]
[2018-08-09] MEDS: fentaNYL 100 MCG/2 ML VIAL IVP ×2 (15:35→15:50)
[2018-08-09] MEDS: Ketorolac 15 MG/ML VIAL IVP ×2 (15:54→21:18)
--- NOTE | 2018-08-09 16:59 | ROE_ITS ---
DATE OF OPERATION: August 09, 2018 PREOPERATIVE DIAGNOSIS: Clot retention. POSTOPERATIVE DIAGNOSIS: Clot retention. PROCEDURE: Cystoscopy, clot evacuation, TUR biopsy of bladder neck, TUR biopsy of prostate. SURGEON: David Bonner M.D. ANESTHESIA: MAC with local. COMPLICATIONS: None. HISTORY: This is an 78-year-old gentleman who has a history of prostate cancer. He was treated with external beam radiation. I first met him a month ago when he developed clot retention. We evacuated the clot and his urine cl eared. At that time, we did not find any active bleeding. 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 He returned to the Emergency Room about a month later, again with gross hematuria and clots. He unde rwent cystoscopy with clot evacuation last week. He continued to bleed and went back into retention with clots. He presents now for clot evacuation with biopsies of the bladder and prostate as well as fulguration of any bleeding sites. OPERATIVE REPORT: The patient was brought to the Operating Room on 08/09/18. He was given a dose of IV antibiotics. After being given IV sedation he was placed in the dorsal lithotomy position. His indwelling catheter was removed. His genitalia was prepped and draped. A 24 [place] resectoscope sheath was passed through the urethra into the bladder. The bladder was ins pected with the 30-degree lens. A large amount of clot was identified. The clot was evacuated using a Cristian syringe. Once the clot was evacuated, we inspected both the bladder and the prostatic mucosa. We did not see any active arterial bleeding. There was diffuse erythema on the posterior wall of the bladder as wel l as the prostatic mucosa. We then performed a transurethral resection biopsy of the prostate as well as the bladder neck mucosa . Each of these were sent to Pathology for permanent section. We then switched to the vaporization button and cauterized the visible prostatic mucosa as well as bl adder mucosa. At the completion of the procedure no bleeding was identified. We filled the bladder with irrigant. We removed the resectoscope and passed a 24 [place] hematuria catheter through the urethra into the b ladder. The catheter balloon was inflated with 30 cc of sterile water. Continuous bladder irrigatio n with saline was begun. We will switch over to an Amicar solution once the pharmacy is able to mix the Amicar into the bladder irrigation for us. He tolerated the procedure well with no complications.
[2018-08-09] MEDS: Lactated Ringers 1,000 ML 80 ML IV (19:44)
[2018-08-10 03:25] VITALS: BP 164/75; PULSE 60; RESP 18; TEMP 36.6; O2SAT 100
[2018-08-10] MEDS: Ketorolac 15 MG/ML VIAL IVP ×2 (03:50→10:44)
[2018-08-10] MEDS: Lactated Ringers 1,000 ML 80 ML IV (05:52)
--- NOTE | 2018-08-10 07:15 | W.PM.PROGNOT ---
Date of Service Date of service: 08/10/18 Time of Service: 07:15 Assessment and Plan (1) Clot retention of urine: Current visit: Yes Status: Acute Clinically, he is much improved. We will remove the Amicar from his bladder irrigation and run saline alone. I will discontinue his IV fluids and IV medication. We will await this morning's labs studies. Depending on his bladder irrigation, we may be able to discharge him tomorrow or Monday. We will decide if we will remove his catheter before discharge or send him home with a catheter to a leg bag. Subjective Interval history since last seen: She had quite a few spasms in the recovery room, but no discomfort overnight. In fact, he was able to sleep through for the first time in a week. He has baseline dizziness because of his macular degeneration, but no new orthostatic changes Exam Narrative Exam Narrative: He looks well. He is not in any current distress. His vital signs are documented elsewhere His urine is very light pink with bladder irrigation He is awake, alert and oriented His abdomen is soft with no mass Objective Objective Clinical Data: Abnormal lab results 08/09/18 Range/Units 06:35 Glucose 139 H (70-100) mg/dL Vital Signs Temperature 36.6 C 08/10/18 03:25 Temperature Source Tympanic 08/10/18 03:25 Pulse 60 08/10/18 03:25 Pulse Rhythm Regular 08/09/18 22:29 Respiratory Rate 18 08/10/18 03:25 Respiratory Effort 08/09/18 22:29 Respiratory Depth Normal 08/09/18 22:29 Respiratory Pattern Normal 08/09/18 22:29 Blood Pressure 164/75 H 08/10/18 03:25 Pulse Oximetry 100 08/10/18 03:25 Respiratory End-tidal CO2 28 08/09/18 15:55 Oxygen Delivery Method Room Air 08/10/18 03:25 Oxygen Flow Rate 0 08/10/18 03:25 Pain Level 0 08/10/18 03:25 Comment 08/10/18 03:25 Intake & Output 08/09/18 08/09/18 08/10/18 11:59 23:59 11:59 Intake Total 1100 / 1100 810.667 / 810.667 Balance 1100 / 1100 810.667 / 810.667 Intake: IV 1100 / 1100 810.667 / 810.667 Other: Urine Color Ag Ag Urine Appearance Hematuria Clear Clots Comment patient c/o pressure in the bladder area , cbi shut down, and 60 cc of saline was manually flushed into the catheter , with retraction, a tammie clot was drawn back into the 60 cc syringe, patient was comfortable, and a good flow was resumed, cbi was restarted patient continues on continous bladder irrigation, sefveral microclots seen in the evacuation. out flow is a medium ag color at this point Stool Characteristics Soft Formed Emesis Description None Laboratory Results WBC 8.42 k/cumm (4.4-10.8) 08/09/18 06:30 RBC 3.73 m/cumm (4.50-6.00) L 08/09/18 06:30 Hgb 11.2 g/dL (13.5-17.5) L 08/09/18 06:30 Hct 33.6 % (40.0-50.0) L 08/09/18 06:30 MCV 90.1 fL (80-95) 08/09/18 06:30 MCH 30.0 pg (27.0-33.0) 08/09/18 06:30 MCHC 33.3 g/dL (32.0-36.0) 08/09/18 06:30 RDW 13.6 % (11.8-14.1) 08/09/18 06:30 Plt Count 284 x1000/uL (130-400) 08/09/18 06:30 MPV 9.4 fL (8.0-11.0) 08/09/18 06:30 Immature Gran % 0.3 08/07/18 05:47 Neutrophils % 53.4 08/07/18 05:47 Lymphocytes % 31.1 08/07/18 05:47 Monocytes % 11.1 08/07/18 05:47 Eosinophils % 3.8 08/07/18 05:47 Basophils % 0.3 08/07/18 05:47 Absolute Neutrophils 3.21 k/cumm (1.2-6.7) 08/07/18 05:47 Absolute Lymphocytes 1.87 k/cumm (1.2-3.4) 08/07/18 05:47 Absolute Monocytes 0.67 k/cumm (0.11-0.7) 08/07/18 05:47 Absolute Eosinophils 0.23 k/cumm (0.0-0.7) 08/07/18 05:47 Absolute Basophils 0.02 k/cumm (0.0-0.2) 08/07/18 05:47 PT 11.0 sec (9.3-11.0) 08/07/18 05:47 INR 1.1 (1.0-3.5) 08/07/18 05:47 APTT 23.2 sec (21.0-31.4) 08/07/18 05:47 Sodium 138 mmol/L (136-145) 08/09/18 06:35 Potassium 3.6 mmol/L (3.5-5.1) 08/09/18 06:35 Chloride 103 mmol/L (98-107) 08/09/18 06:35 Carbon Dioxide 24.4 mmol/L (21.0-32.0) 08/09/18 06:35 Anion Gap 10.6 mmol/L (3-11) 08/09/18 06:35 BUN 15 mg/dL (7-18) 08/09/18 06:35 Creatinine 1.16 mg/dL (0.70-1.30) 08/09/18 06:35 Estimated GFR/1.73 m2 >= 60.00 (mL/min/1.73m2) 08/09/18 06:35 Glucose 139 mg/dL (70-100) H 08/09/18 06:35 Calcium 8.8 mg/dL (8.5-10.1) 08/09/18 06:35 Phosphorus 3.1 mg/dL (2.6-4.7) 08/07/18 05:47 Magnesium 2.0 mg/dL (1.8-2.4) 08/07/18 05:47 Total Bilirubin 0.8 mg/dL (0.2-1.0) 08/06/18 10:05 AST 28 U/L (15-37) 08/06/18 10:05 ALT 29 U/L (12-78) 08/06/18 10:05 Alkaline Phosphatase 57 U/L (46-116) 08/06/18 10:05 Total Protein 6.8 g/dL (6.4-8.2) 08/06/18 10:05 Albumin 3.3 g/dL (3.4-5.0) L 08/06/18 10:05 Patient ABO/Rh O Positive 08/06/18 10:05 Antibody Screen Negative 08/06/18 10:05
[2018-08-10 07:43] LABS: HCT 29.1 % (40.0-50.0); HGB 9.5 g/dL (13.5-17.5)
[2018-08-10 07:53] VITALS: BP 175/92; PULSE 61; RESP 14; TEMP 36.7; O2SAT 99
[2018-08-10 07:53] LABS: Anion Gap 6.7 mmol/L (3-11); BUN 20 mg/dL (7-18); CO2 25.3 mmol/L (21.0-32.0); Calcium 8.4 mg/dL (8.5-10.1); Chloride 105 mmol/L (98-107); Glucose 83 mg/dL (70-100); Potassium 3.8 mmol/L (3.5-5.1); Sodium 137 mmol/L (136-145)
[2018-08-10] MEDS: Finasteride 5 MG TAB PO (08:25)
[2018-08-10] MEDS: Docusate Sodium 100 MG CAP PO ×2 (08:25→20:31)
[2018-08-10] MEDS: Normal Saline Flush 10 ML SYR IVP (10:44)
[2018-08-10 11:33] VITALS: BP 153/75; PULSE 67; RESP 16; TEMP 36.6; O2SAT 99
--- NOTE | 2018-08-10 13:47 | PDOC.CMPRO ---
- If Service Date Differs Date of service: 08/10/18 Time of Service: 13:47 Care Management Progress Note S/O: Romel was lying in bed when CM visited this morning. He is engaged in conversation, makes good eye contact, and is talkative. Romel has a continuous bladder irrigation and is hopeful that he will not have any additional issues with his catheter. Romel reports that he has had multiple visits to the ER as of late due to problems with clogging and leaking. Per Dr. Bonner, Romel will either have the catheter removed prior to discharge or return home with catheter and leg bag. Romel reports that he has a woman who lives with him to assist on a daily basis, but that she is away until after the new year. When asked about whether he felt safe at home, Romel reports that he does and does not feel that he needs to look for alternate housing or have more assistance in the home. Romel is legally blind. A:Romel is a 78 year old male admitted with hematuria post cystoscopy with . P:Romel will return home when medically ready per provider. He will follow up with and primary care as directed. Anticipate no home health services unless he returns home with an indwelling perez and will need additional support at home. His friend Lise will transport him home at time of discharge via private car. CM will continue to offer support to patient and care team regarding discharge planning and disposition.
[2018-08-10 16:16] VITALS: BP 159/85; PULSE 81; RESP 18; TEMP 36.7; O2SAT 100
[2018-08-10 19:26] VITALS: BP 135/72; PULSE 68; RESP 18; TEMP 37.4; O2SAT 97
[2018-08-10 23:31] VITALS: BP 120/71; PULSE 66; RESP 17; TEMP 36.7; O2SAT 100
[2018-08-11 03:48] VITALS: BP 121/88; PULSE 56; RESP 17; TEMP 36.5; O2SAT 98
[2018-08-11] MEDS: Docusate Sodium 100 MG CAP PO ×2 (07:33→20:38)
[2018-08-11] MEDS: Finasteride 5 MG TAB PO (07:33)
[2018-08-11 07:35] VITALS: O2SAT 97
--- NOTE | 2018-08-11 09:00 | W.PM.PROGNOT ---
Date of Service Date of service: 08/11/18 Time of Service: 09:00 Assessment and Plan (1) Clot retention of urine: Current visit: Yes Status: Acute With his episode of clot retention overnight, I think it is premature to stop his bladder irrigation right now. We will go ahead and can to new irrigation for another 24 hours. I have encouraged him to increase his activity to see if there is any increase in bleeding as he becomes more active. I will plan on hand irrigating his catheter again tomorrow morning. If no clots or obtained in his urine is relatively clear, we may try stopping the irrigation but leaving his catheter so that we can restart the irrigation if and when bleeding recurs. Subjective Interval history since last seen: He had one episode of clot retention overnight. His discomfort improved with hand irrigation. He is now comfortable. He denies any fevers or chills. He is tolerating p.o. with no nausea or vomiting Exam Narrative Exam Narrative: He looks quite comfortable at this point in time. His vital signs documented elsewhere in the chart. His bladder irrigation is transparent at a moderate rate. I went ahead and hand irrigated his catheter and obtained some large clots. He is awake, alert and oriented Objective Objective Clinical Data: Vital Signs Temperature 36.5 C 08/11/18 03:48 Temperature Source Tympanic 08/11/18 03:48 Pulse 56 L 08/11/18 03:48 Pulse Rhythm Regular 08/10/18 23:50 Respiratory Rate 17 08/11/18 03:48 Respiratory Effort 08/10/18 23:50 Respiratory Depth Normal 08/10/18 23:50 Respiratory Pattern Normal 08/10/18 23:50 Blood Pressure 121/88 08/11/18 03:48 Pulse Oximetry 98 08/11/18 03:48 Respiratory End-tidal CO2 28 08/09/18 15:55 Oxygen Delivery Method Room Air 08/11/18 03:48 Oxygen Flow Rate 0 08/11/18 03:48 Pain Level 0 08/11/18 03:48 Comment 08/10/18 03:25 Intake & Output 08/10/18 08/10/18 08/11/18 11:59 23:59 11:59 Intake Total 1821.334 / 2301.334 480 / 2301.334 Output Total 2200 / 6800 4600 / 6800 3000 / 3000 Balance -378.666 / -4498.666 -4120 / -4498.666 -3000 / -3000 Intake: IV 1081.334 / 1081.334 Oral 740 / 1220 480 / 1220 Output: Urine 2200 / 6800 4600 / 6800 3000 / 3000 Other: Urine Color Ag [place] Ag Ag Bright Red Urine Appearance Hematuria Clear Clear Clots Hematuria Clots Comment Patient complained of pressure build up. Hand irrigation done 3 way irrigation Laboratory Results WBC 8.42 k/cumm (4.4-10.8) 08/09/18 06:30 RBC 3.73 m/cumm (4.50-6.00) L 08/09/18 06:30 Hgb 9.5 g/dL (13.5-17.5) L 08/10/18 06:26 Hct 29.1 % (40.0-50.0) L 08/10/18 06:26 MCV 90.1 fL (80-95) 08/09/18 06:30 MCH 30.0 pg (27.0-33.0) 08/09/18 06:30 MCHC 33.3 g/dL (32.0-36.0) 08/09/18 06:30 RDW 13.6 % (11.8-14.1) 08/09/18 06:30 Plt Count 284 x1000/uL (130-400) 08/09/18 06:30 MPV 9.4 fL (8.0-11.0) 08/09/18 06:30 Immature Gran % 0.3 08/07/18 05:47 Neutrophils % 53.4 08/07/18 05:47 Lymphocytes % 31.1 08/07/18 05:47 Monocytes % 11.1 08/07/18 05:47 Eosinophils % 3.8 08/07/18 05:47 Basophils % 0.3 08/07/18 05:47 Absolute Neutrophils 3.21 k/cumm (1.2-6.7) 08/07/18 05:47 Absolute Lymphocytes 1.87 k/cumm (1.2-3.4) 08/07/18 05:47 Absolute Monocytes 0.67 k/cumm (0.11-0.7) 08/07/18 05:47 Absolute Eosinophils 0.23 k/cumm (0.0-0.7) 08/07/18 05:47 Absolute Basophils 0.02 k/cumm (0.0-0.2) 08/07/18 05:47 PT 11.0 sec (9.3-11.0) 08/07/18 05:47 INR 1.1 (1.0-3.5) 08/07/18 05:47 APTT 23.2 sec (21.0-31.4) 08/07/18 05:47 Sodium 137 mmol/L (136-145) 08/10/18 06:26 Potassium 3.8 mmol/L (3.5-5.1) 08/10/18 06:26 Chloride 105 mmol/L (98-107) 08/10/18 06:26 Carbon Dioxide 25.3 mmol/L (21.0-32.0) 08/10/18 06:26 Anion Gap 6.7 mmol/L (3-11) 08/10/18 06:26 BUN 20 mg/dL (7-18) H 08/10/18 06:26 Creatinine 1.10 mg/dL (0.70-1.30) 08/10/18 06:26 Estimated GFR/1.73 m2 >= 60.00 (mL/min/1.73m2) 08/10/18 06:26 Glucose 83 mg/dL (70-100) D 08/10/18 06:26 Calcium 8.4 mg/dL (8.5-10.1) L 08/10/18 06:26 Phosphorus 3.1 mg/dL (2.6-4.7) 08/07/18 05:47 Magnesium 2.0 mg/dL (1.8-2.4) 08/07/18 05:47 Total Bilirubin 0.8 mg/dL (0.2-1.0) 08/06/18 10:05 AST 28 U/L (15-37) 08/06/18 10:05 ALT 29 U/L (12-78) 08/06/18 10:05 Alkaline Phosphatase 57 U/L (46-116) 08/06/18 10:05 Total Protein 6.8 g/dL (6.4-8.2) 08/06/18 10:05 Albumin 3.3 g/dL (3.4-5.0) L 08/06/18 10:05 Patient ABO/Rh O Positive 08/06/18 10:05 Antibody Screen Negative 08/06/18 10:05
--- NOTE | 2018-08-11 09:57 | CMPROGNOTE_ITS ---
- If Service Date Differs Date of service: 08/11/18 Time of Service: 08:40 Care Management Progress Note S/O: Romel was lying in bed when CM visited this morning. He is engaged in conversation, makes good eye contact, and is talkative. Romel has a continuous bladder irrigation and is hopeful that he will not have any additional issues with his catheter. Romel reports that he has had multiple visits to the ER as of late due to problems with clogging and leaking. Patient reports that he had a short period of pain overnight but nursing unclogged the catheter and he rested comfortably the remainder of the night. Per Dr. Bonner's report from 08/10, Romel will either have the catheter removed prior to discharge or return home with catheter and leg bag. Romel reports this morning that Dr. Bonner plans on seeing him this morning, removing the catheter and keeping him inpatient for a few more days. Romel complains of itching/rash on his back. VOLUNTEER COORDINATOR brought him lotion which has not helped. CM phoned laundry requesting hypoallergenic sheets which may possibly help. CM will continue to follow. A:Romel is a 78 year old male admitted with hematuria post cystoscopy with . P:Romel will return home when medically ready per provider. He will follow up with and his PCP as directed. Anticipate no home health services unless he returns home with an indwelling perez and will need additional support at home. His friend Lise will transport him home at time of discharge via private car. CM will continue to offer support to patient and care team regarding discharge planning and disposition.
[2018-08-11 10:45] VITALS: BP 116/65; PULSE 60; RESP 18; TEMP 36.2; O2SAT 100
[2018-08-11] MEDS: Multivitamin w/Minerals TAB 1 TAB PO (11:03)
[2018-08-11 15:59] VITALS: BP 145/75; PULSE 102; RESP 20; TEMP 37; O2SAT 98
[2018-08-11 21:12] VITALS: BP 152/74; PULSE 89; RESP 12; TEMP 36.5; O2SAT 98
[2018-08-11 23:58] VITALS: BP 132/72; PULSE 45; RESP 18; TEMP 36; O2SAT 100
[2018-08-12] VITALS (7 sets, daily range): BP systolic 136–168; BP diastolic 73–94; PULSE 68–103; RESP 15–18; TEMP 36.6–37.5; O2SAT 96–99
[2018-08-12 07:37] LABS: HCT 25.7 % (40.0-50.0); HGB 8.2 g/dL (13.5-17.5)
[2018-08-12] MEDS: Docusate Sodium 100 MG CAP PO ×2 (08:22→19:50)
[2018-08-12] MEDS: Finasteride 5 MG TAB PO (08:22)
[2018-08-12] MEDS: Multivitamin w/Minerals TAB 1 TAB PO (08:22)
--- NOTE | 2018-08-12 08:59 | PDOC.CMPRO ---
- If Service Date Differs Date of service: 08/12/18 Time of Service: 08:59 Care Management Progress Note S/O: Romel is sitting up eating breakfast when CM visited this morning. He is engaged in conversation, makes good eye contact, and is talkative. Romel reports that he is feeling pretty well given the circumstances and that he walked yesterday for 1 1/2 hours. He reports that at baseline he walks five miles a day so being in the hospital and not very mobile has been difficult for him. His continuous bladder irrigation remains in place and is draining red/nelson colored urine. He is hopeful that the MD will remove it today or tomorrow and that he does not have to return home with it in. A:Romel is a 78 year old male admitted with hematuria post cystoscopy with . P:Romel will return home when medically ready per provider. He will follow up with and his PCP as directed. Anticipate no home health services unless he returns home with an indwelling perez and will need additional support at home. His friend Lise will transport him home at time of discharge via private car. CM will continue to offer support to patient and care team regarding discharge planning and disposition.
--- NOTE | 2018-08-12 10:09 | W.PM.PROGNOT ---
Date of Service Date of service: 08/12/18 Time of Service: 10:09 Assessment and Plan (1) Clot retention of urine: Current visit: Yes Status: Acute It does not look like he is having acute bleeding any longer. At this point, our goal is to make sure no clots build back up before giving him a voiding trial. Since I did evacuate a few clots this morning, we will plan on continuing the bladder irrigation today. I will ask the staff to hand irrigate his catheter once a shift. I told the patient that not getting clots is actually a very good sign. I will see him in the morning and hand irrigate the catheter again myself. If no clots are obtained then, we will give him a voiding trial Subjective Interval history since last seen: He has been more active, ambulating in the [place] and taking a shower. He is tolerating p.o. He has chronic dizziness but does not think he has been more dizzy when he gets up. Exam Narrative Exam Narrative: His vital signs are documented elsewhere in the chart. He does not appear septic or toxic. I hand irrigated his catheter this morning and obtained a few clots. After the clots were evacuated, the irrigation was very clear. His hemoglobin is relatively stable compared to 2 days ago. Objective Objective Clinical Data: Abnormal lab results 08/12/18 Range/Units 06:40 Hgb 8.2 L (13.5-17.5) g/dL Hct 25.7 L (40.0-50.0) % Vital Signs Temperature 36.6 C 08/12/18 04:00 Temperature Source Skin 08/12/18 04:00 Pulse 81 08/12/18 04:00 Pulse Rhythm Regular 08/12/18 07:43 Respiratory Rate 18 08/12/18 04:00 Respiratory Effort Non-Labored 08/12/18 07:43 Respiratory Depth Normal 08/12/18 07:43 Respiratory Pattern Normal 08/12/18 07:43 Blood Pressure 148/76 H 08/12/18 04:00 Pulse Oximetry 96 08/12/18 04:00 Respiratory End-tidal CO2 28 08/09/18 15:55 Oxygen Delivery Method Room Air 08/12/18 04:00 Oxygen Flow Rate 0 08/12/18 04:00 Pain Level 0 08/12/18 04:00 Comment 08/12/18 04:00 Intake & Output 08/11/18 08/11/18 08/12/18 11:59 23:59 11:59 Intake Total 960 / 4160 3200 / 4160 900 / 900 Output Total 3000 / 3000 Balance -2040 / 1160 3200 / 1160 900 / 900 Intake: Oral 960 / 4160 3200 / 4160 900 / 900 Output: Urine 3000 / 3000 Other: Urine Color Ag [place] Ag Urine Appearance Clear Clear Clear Hematuria Hematuria Comment Irrigated by MD to see if there was clots for ? of DC home rediness. Several clots obtained DC home postponed Irrigation was flowing well and light pink in color. Patient insistant on 3way being flushed.States the MD Rothman wanted the 3way cath manually irrigated multiple times and did not know hwy we were not doing it that way. I told him we were with the 3way flowing continuously. I did irrigate manually and did obtain one slender 5 inch clot thread. Flushed for several minutes. States he feels like there is more clots in there but has no pain. He states He know there must be lots more in ther since the MD had gotten lots when he did it mid morning. Patient still not satisfied and states he will lay there until the pain starts. A# way cath is flowing nicely and is a light pink in color with no clots visable. I showed the patient how well the bag was filling and he was still frustrtaed that I would not continue to flush even though the cath was running extremely well. pt was complaining of feeling pressure hand irrigation done. a few small clots noted. Stool Size Large Stool Characteristics Soft Formed Brown Laboratory Results WBC 8.42 k/cumm (4.4-10.8) 08/09/18 06:30 RBC 3.73 m/cumm (4.50-6.00) L 08/09/18 06:30 Hgb 8.2 g/dL (13.5-17.5) L 08/12/18 06:40 Hct 25.7 % (40.0-50.0) L 08/12/18 06:40 MCV 90.1 fL (80-95) 08/09/18 06:30 MCH 30.0 pg (27.0-33.0) 08/09/18 06:30 MCHC 33.3 g/dL (32.0-36.0) 08/09/18 06:30 RDW 13.6 % (11.8-14.1) 08/09/18 06:30 Plt Count 284 x1000/uL (130-400) 08/09/18 06:30 MPV 9.4 fL (8.0-11.0) 08/09/18 06:30 Immature Gran % 0.3 08/07/18 05:47 Neutrophils % 53.4 08/07/18 05:47 Lymphocytes % 31.1 08/07/18 05:47 Monocytes % 11.1 08/07/18 05:47 Eosinophils % 3.8 08/07/18 05:47 Basophils % 0.3 08/07/18 05:47 Absolute Neutrophils 3.21 k/cumm (1.2-6.7) 08/07/18 05:47 Absolute Lymphocytes 1.87 k/cumm (1.2-3.4) 08/07/18 05:47 Absolute Monocytes 0.67 k/cumm (0.11-0.7) 08/07/18 05:47 Absolute Eosinophils 0.23 k/cumm (0.0-0.7) 08/07/18 05:47 Absolute Basophils 0.02 k/cumm (0.0-0.2) 08/07/18 05:47 PT 11.0 sec (9.3-11.0) 08/07/18 05:47 INR 1.1 (1.0-3.5) 08/07/18 05:47 APTT 23.2 sec (21.0-31.4) 08/07/18 05:47 Sodium 137 mmol/L (136-145) 08/10/18 06:26 Potassium 3.8 mmol/L (3.5-5.1) 08/10/18 06:26 Chloride 105 mmol/L (98-107) 08/10/18 06:26 Carbon Dioxide 25.3 mmol/L (21.0-32.0) 08/10/18 06:26 Anion Gap 6.7 mmol/L (3-11) 08/10/18 06:26 BUN 20 mg/dL (7-18) H 08/10/18 06:26 Creatinine 1.10 mg/dL (0.70-1.30) 08/10/18 06:26 Estimated GFR/1.73 m2 >= 60.00 (mL/min/1.73m2) 08/10/18 06:26 Glucose 83 mg/dL (70-100) D 08/10/18 06:26 Calcium 8.4 mg/dL (8.5-10.1) L 08/10/18 06:26 Phosphorus 3.1 mg/dL (2.6-4.7) 08/07/18 05:47 Magnesium 2.0 mg/dL (1.8-2.4) 08/07/18 05:47 Total Bilirubin 0.8 mg/dL (0.2-1.0) 08/06/18 10:05 AST 28 U/L (15-37) 08/06/18 10:05 ALT 29 U/L (12-78) 08/06/18 10:05 Alkaline Phosphatase 57 U/L (46-116) 08/06/18 10:05 Total Protein 6.8 g/dL (6.4-8.2) 08/06/18 10:05 Albumin 3.3 g/dL (3.4-5.0) L 08/06/18 10:05 Patient ABO/Rh O Positive 08/06/18 10:05 Antibody Screen Negative 08/06/18 10:05
[2018-08-13 04:25] VITALS: PULSE 95; TEMP 36.8
[2018-08-13 07:25] VITALS: BP 147/83; PULSE 87; RESP 20; TEMP 37.1; O2SAT 100
--- NOTE | 2018-08-13 07:52 | W.PM.PROGNOT ---
Date of Service Date of service: 08/13/18 Time of Service: 07:53 Assessment and Plan (1) Clot retention of urine: Current visit: Yes Status: Acute We will give him a voiding trial today. If he is unable to void we will be available to place a catheter back in. As long as he is voiding, we can finalize discharge plans for either later today or tomorrow. Subjective Interval history since last seen: He has had pressure sensation in his bladder, but no real clots causing clot retention. Exam Narrative Exam Narrative: He is not in any current distress. He does not appear septic or toxic. I hand irrigated his catheter with over 500 cc of saline and did not obtain any significant clots this morning I went ahead and removed his urethral catheter. Objective Objective Clinical Data: Vital Signs Temperature 36.8 C 08/13/18 04:25 Temperature Source Tympanic 08/13/18 04:25 Pulse 95 H 08/13/18 04:25 Pulse Rhythm Regular 08/12/18 19:35 Respiratory Rate 18 08/12/18 23:46 Respiratory Effort Non-Labored 08/12/18 19:35 Respiratory Depth Normal 08/12/18 19:35 Respiratory Pattern Normal 08/12/18 19:35 Blood Pressure 153/74 H 08/12/18 23:46 Pulse Oximetry 98 08/12/18 23:46 Respiratory End-tidal CO2 28 08/09/18 15:55 Oxygen Delivery Method Room Air 08/12/18 23:46 Oxygen Flow Rate 0 08/12/18 23:46 Pain Level 0 08/12/18 11:35 Comment 08/12/18 04:00 Intake & Output 08/12/18 08/12/18 08/13/18 11:59 23:59 11:59 Intake Total 1140 / 1630 490 / 1630 Output Total 1000 / 1000 Balance 140 / 630 490 / 630 Intake: Oral 1140 / 1630 490 / 1630 Output: Urine 1000 / 1000 Other: Urine Color Ag Ag [place] Bright Red Urine Appearance Clear Clear Hematuria Comment pt was complaining of feeling pressure hand irrigation done. a few small clots noted. Stool Size Moderate Stool Characteristics Soft Liquid Laboratory Results WBC 8.42 k/cumm (4.4-10.8) 08/09/18 06:30 RBC 3.73 m/cumm (4.50-6.00) L 08/09/18 06:30 Hgb 8.2 g/dL (13.5-17.5) L 08/12/18 06:40 Hct 25.7 % (40.0-50.0) L 08/12/18 06:40 MCV 90.1 fL (80-95) 08/09/18 06:30 MCH 30.0 pg (27.0-33.0) 08/09/18 06:30 MCHC 33.3 g/dL (32.0-36.0) 08/09/18 06:30 RDW 13.6 % (11.8-14.1) 08/09/18 06:30 Plt Count 284 x1000/uL (130-400) 08/09/18 06:30 MPV 9.4 fL (8.0-11.0) 08/09/18 06:30 Immature Gran % 0.3 08/07/18 05:47 Neutrophils % 53.4 08/07/18 05:47 Lymphocytes % 31.1 08/07/18 05:47 Monocytes % 11.1 08/07/18 05:47 Eosinophils % 3.8 08/07/18 05:47 Basophils % 0.3 08/07/18 05:47 Absolute Neutrophils 3.21 k/cumm (1.2-6.7) 08/07/18 05:47 Absolute Lymphocytes 1.87 k/cumm (1.2-3.4) 08/07/18 05:47 Absolute Monocytes 0.67 k/cumm (0.11-0.7) 08/07/18 05:47 Absolute Eosinophils 0.23 k/cumm (0.0-0.7) 08/07/18 05:47 Absolute Basophils 0.02 k/cumm (0.0-0.2) 08/07/18 05:47 PT 11.0 sec (9.3-11.0) 08/07/18 05:47 INR 1.1 (1.0-3.5) 08/07/18 05:47 APTT 23.2 sec (21.0-31.4) 08/07/18 05:47 Sodium 137 mmol/L (136-145) 08/10/18 06:26 Potassium 3.8 mmol/L (3.5-5.1) 08/10/18 06:26 Chloride 105 mmol/L (98-107) 08/10/18 06:26 Carbon Dioxide 25.3 mmol/L (21.0-32.0) 08/10/18 06:26 Anion Gap 6.7 mmol/L (3-11) 08/10/18 06:26 BUN 20 mg/dL (7-18) H 08/10/18 06:26 Creatinine 1.10 mg/dL (0.70-1.30) 08/10/18 06:26 Estimated GFR/1.73 m2 >= 60.00 (mL/min/1.73m2) 08/10/18 06:26 Glucose 83 mg/dL (70-100) D 08/10/18 06:26 Calcium 8.4 mg/dL (8.5-10.1) L 08/10/18 06:26 Phosphorus 3.1 mg/dL (2.6-4.7) 08/07/18 05:47 Magnesium 2.0 mg/dL (1.8-2.4) 08/07/18 05:47 Total Bilirubin 0.8 mg/dL (0.2-1.0) 08/06/18 10:05 AST 28 U/L (15-37) 08/06/18 10:05 ALT 29 U/L (12-78) 08/06/18 10:05 Alkaline Phosphatase 57 U/L (46-116) 08/06/18 10:05 Total Protein 6.8 g/dL (6.4-8.2) 08/06/18 10:05 Albumin 3.3 g/dL (3.4-5.0) L 08/06/18 10:05 Patient ABO/Rh O Positive 08/06/18 10:05 Antibody Screen Negative 08/06/18 10:05
[2018-08-13] MEDS: Multivitamin w/Minerals TAB 1 TAB PO (08:33)
[2018-08-13] MEDS: Finasteride 5 MG TAB PO (08:33)
[2018-08-13] MEDS: Docusate Sodium 100 MG CAP PO (08:33)
[2018-08-13 11:15] VITALS: BP 144/83; PULSE 87; RESP 20; TEMP 37.2; O2SAT 100
--- NOTE | 2018-08-13 13:18 | CHAPLAIN ---
Romel was sitting up in his chair when I stopped in. He said that he didn't believe he needed a glue spreader. I let him know that I visit lots of patients, not just in end of life situations. He asked if I could get him some more water, and I did.
[2018-08-13 16:21] VITALS: BP 172/75; PULSE 46; RESP 20; TEMP 37.8; O2SAT 100
[2018-08-13 16:23] VITALS: PULSE 96
[2018-08-13] MEDS: Acetaminophen 325 MG TAB 650 MG PO (17:47)
--- NOTE | 2018-08-13 17:56 | PDOC.CMPRO ---
- If Service Date Differs Date of service: 08/13/18 Time of Service: 17:56 Care Management Progress Note S/O: Romel is ambulating in the room. His indwelling cath was removed. Anticipate home in the next 24 hours if he is able to void on his own per . Romel's friend Lise he believes will transport him home. Anticipate no services at time of discharge pending he does not return home with a indwelling perez. A:Romel is a 78 year old male admitted with hematuria post cystoscopy with . P:Romel will return home when medically ready per provider. He will follow up with and his PCP as directed. Anticipate no home health services unless he returns home with an indwelling perez and will need additional support at home. His friend Lise will transport him home at time of discharge via private car. will continue to offer support to patient and care team regarding discharge planning and disposition.
[2018-08-13] MEDS: HYDROmorphone 2 MG/ML VIAL IVP (19:28)
[2018-08-13] MEDS: Normal Saline Flush 10 ML SYR IVP (19:28)
[2018-08-13 20:00] VITALS: BP 138/67; PULSE 84; RESP 20; TEMP 36.6; O2SAT 100
[2018-08-14] MEDS: HYDROmorphone 2 MG/ML VIAL IVP ×3 (01:33→19:38)
[2018-08-14] MEDS: Normal Saline Flush 10 ML SYR IVP ×2 (01:38→19:39)
[2018-08-14 02:16] VITALS: BP 148/76; PULSE 98; RESP 18; TEMP 36.5; O2SAT 98
[2018-08-14 07:15] LABS: HCT 24.9 % (40.0-50.0); HGB 8.3 g/dL (13.5-17.5)
[2018-08-14 07:45] VITALS: BP 166/77; PULSE 91; RESP 18; TEMP 37.1; O2SAT 99
[2018-08-14] MEDS: Multivitamin w/Minerals TAB 1 TAB PO (09:19)
[2018-08-14] MEDS: Finasteride 5 MG TAB PO (09:19)
--- NOTE | 2018-08-14 10:03 | W.PM.PROGNOT ---
Date of Service Date of service: 08/14/18 Time of Service: 10:03 Assessment and Plan (1) Clot retention of urine: Current visit: Yes Status: Acute His hemoglobin is actually stable, so he does not seem to have an active bleed. I believe we are dealing with old retain clots. We will try to keep clear with hand irrigation alone. If we are unable to keep clear, we can restart his CBI. If all else fails, and we are unable to control his symptoms medically, we can arrange for a cysto and vaporization of his prostate with fulguration of bladder mucosa to try to control things surgically. Subjective Interval history since last seen: He voided frequently last evening before going back into retention this morning. His catheter was replaced. Multiple clotsa have been evacuated and he feels better. Exam Narrative Exam Narrative: He looks comfortable now His vital signs are documented elsewhere in chart I hand irrigated his catheter and obtained multiple clots. Afterwards, his urine is light pink. He is awake and alert Objective Objective Clinical Data: Abnormal lab results 08/14/18 Range/Units 06:45 Hgb 8.3 L (13.5-17.5) g/dL Hct 24.9 L (40.0-50.0) % Vital Signs Temperature 37.1 C 08/14/18 07:45 Temperature Source Tympanic 08/14/18 07:45 Pulse 91 H 08/14/18 07:45 Pulse Rhythm Regular 08/14/18 09:32 Respiratory Rate 18 08/14/18 07:45 Respiratory Effort Non-Labored 08/14/18 09:32 Respiratory Depth Normal 08/14/18 09:32 Respiratory Pattern Normal 08/14/18 09:32 Blood Pressure 166/77 H 08/14/18 07:45 Pulse Oximetry 99 08/14/18 07:45 Respiratory End-tidal CO2 28 08/09/18 15:55 Oxygen Delivery Method Room Air 08/14/18 07:45 Oxygen Flow Rate 0 08/14/18 07:45 Pain Level 1 08/14/18 09:18 Comment 08/12/18 04:00 Intake & Output 08/13/18 08/13/18 08/14/18 11:59 23:59 11:59 Intake Total 860 / 1840 980 / 1840 600 / 600 Output Total 200 / 1000 800 / 1000 500 / 500 Balance 660 / 840 180 / 840 100 / 100 Intake: Oral 860 / 1840 980 / 1840 600 / 600 Output: Urine 200 / 1000 800 / 1000 500 / 500 Other: Urine Color Dark Red Dark Red Dark Red Urine Appearance Clear Hematuria Clots Hematuria Clots Urine Odor None Normal Normal Comment discontinued by at approximately 0800 pain with urination pain with urination Stool Characteristics Brown Voiding Methods Toilet Toilet Toilet Laboratory Results WBC 8.42 k/cumm (4.4-10.8) 08/09/18 06:30 RBC 3.73 m/cumm (4.50-6.00) L 08/09/18 06:30 Hgb 8.3 g/dL (13.5-17.5) L 08/14/18 06:45 Hct 24.9 % (40.0-50.0) L 08/14/18 06:45 MCV 90.1 fL (80-95) 08/09/18 06:30 MCH 30.0 pg (27.0-33.0) 08/09/18 06:30 MCHC 33.3 g/dL (32.0-36.0) 08/09/18 06:30 RDW 13.6 % (11.8-14.1) 08/09/18 06:30 Plt Count 284 x1000/uL (130-400) 08/09/18 06:30 MPV 9.4 fL (8.0-11.0) 08/09/18 06:30 Immature Gran % 0.3 08/07/18 05:47 Neutrophils % 53.4 08/07/18 05:47 Lymphocytes % 31.1 08/07/18 05:47 Monocytes % 11.1 08/07/18 05:47 Eosinophils % 3.8 08/07/18 05:47 Basophils % 0.3 08/07/18 05:47 Absolute Neutrophils 3.21 k/cumm (1.2-6.7) 08/07/18 05:47 Absolute Lymphocytes 1.87 k/cumm (1.2-3.4) 08/07/18 05:47 Absolute Monocytes 0.67 k/cumm (0.11-0.7) 08/07/18 05:47 Absolute Eosinophils 0.23 k/cumm (0.0-0.7) 08/07/18 05:47 Absolute Basophils 0.02 k/cumm (0.0-0.2) 08/07/18 05:47 PT 11.0 sec (9.3-11.0) 08/07/18 05:47 INR 1.1 (1.0-3.5) 08/07/18 05:47 APTT 23.2 sec (21.0-31.4) 08/07/18 05:47 Sodium 137 mmol/L (136-145) 08/10/18 06:26 Potassium 3.8 mmol/L (3.5-5.1) 08/10/18 06:26 Chloride 105 mmol/L (98-107) 08/10/18 06:26 Carbon Dioxide 25.3 mmol/L (21.0-32.0) 08/10/18 06:26 Anion Gap 6.7 mmol/L (3-11) 08/10/18 06:26 BUN 20 mg/dL (7-18) H 08/10/18 06:26 Creatinine 1.10 mg/dL (0.70-1.30) 08/10/18 06:26 Estimated GFR/1.73 m2 >= 60.00 (mL/min/1.73m2) 08/10/18 06:26 Glucose 83 mg/dL (70-100) D 08/10/18 06:26 Calcium 8.4 mg/dL (8.5-10.1) L 08/10/18 06:26 Phosphorus 3.1 mg/dL (2.6-4.7) 08/07/18 05:47 Magnesium 2.0 mg/dL (1.8-2.4) 08/07/18 05:47 Total Bilirubin 0.8 mg/dL (0.2-1.0) 08/06/18 10:05 AST 28 U/L (15-37) 08/06/18 10:05 ALT 29 U/L (12-78) 08/06/18 10:05 Alkaline Phosphatase 57 U/L (46-116) 08/06/18 10:05 Total Protein 6.8 g/dL (6.4-8.2) 08/06/18 10:05 Albumin 3.3 g/dL (3.4-5.0) L 08/06/18 10:05 Patient ABO/Rh O Positive 08/06/18 10:05 Antibody Screen Negative 08/06/18 10:05
[2018-08-14 11:36] VITALS: BP 150/69; PULSE 99; RESP 18; TEMP 37.6; O2SAT 100
--- NOTE | 2018-08-14 15:08 | PDOC.CMPRO ---
- If Service Date Differs Date of service: 08/14/18 Time of Service: 15:08 Care Management Progress Note S/O: CM attempted to meet with patient he is asleep at this time. Romel had the perez replaced r/t pain and clotting. He currently is putting out nelson red urine from the indwelling cath. He does not have the CBI running at this time however per this is a possibility. No change in his status today continue to monitor his labs including hgb and hct. CM to continue to provide support to pt discharge planning and disposition. A:Romel is a 78 year old male admitted with hematuria post cystoscopy with . P:Romel will return home when medically ready per provider. He will follow up with and his PCP as directed. Anticipate no home health services unless he returns home with an indwelling perez and will need additional support at home. His friend Lise will transport him home at time of discharge via private car. CM will continue to offer support to patient and care team regarding discharge planning and disposition.
--- NOTE | 2018-08-14 15:12 | CMPROGNOTE_ITS ---
- If Service Date Differs Date of service: 08/14/18 Time of Service: 15:08 Care Management Progress Note S/O: CM attempted to meet with patient he is asleep at this time. Romel had the perez replaced r/t pain and clotting. He currently is putting out nelson red urine from the indwelling cath. He does not have the CBI running at this time however per this is a possibility. No change in his status today continue to monitor his labs including hgb and hct. CM to continue to provide s upport to pt discharge planning and disposition. A:Romel is a 78 year old male admitted with hematuria post cystoscopy with . P:Romel will return home when medically ready per provider. He will follow up with and his PCP as directed. Anticipate no home health services unless he returns home with an indwelling perez and will need additional support at home. His friend Lise will transport him home at time of discharge via private car. CM will continue to offer support to patient and care team regarding discharge planning and disposition.
[2018-08-14 16:13] VITALS: BP 146/79; PULSE 99; RESP 20; TEMP 37.2; O2SAT 100
[2018-08-14 21:01] VITALS: BP 153/94; PULSE 98; RESP 18; TEMP 37.7; O2SAT 99
[2018-08-14 23:32] VITALS: BP 149/79; PULSE 93; RESP 18; TEMP 37.1; O2SAT 100
[2018-08-15] VITALS (7 sets, daily range): BP systolic 130–162; BP diastolic 65–89; PULSE 82–92; RESP 16–20; TEMP 36.5–37.3; O2SAT 97–100
--- NOTE | 2018-08-15 08:32 | PDOC.CMPRO ---
- If Service Date Differs Date of service: 08/15/18 Time of Service: 08:32 Care Management Progress Note S/O: Romel is ambulating in the halls he does have a friend with him today. He will return to the OR with on discharge plan to be determined. he continue with indwelling cath at this time. A:Romel is a 78 year old male admitted with hematuria post cystoscopy with . P:Romel will return home when medically ready per provider. He will follow up with and his PCP as directed. Anticipate no home health services unless he returns home with an indwelling perez and will need additional support at home. His friend Lise will transport him home at time of discharge via private car. CM will continue to offer support to patient and care team regarding discharge planning and disposition.
--- NOTE | 2018-08-15 08:57 | W.PM.PROGNOT ---
Date of Service Date of service: 08/15/18 Time of Service: 08:58 Assessment and Plan (1) Clot retention of urine: Current visit: Yes Status: Acute With the continued clots, we may need to go back to the OR tomorrow. If so, we will be prepared to vapoized the prostate as well as cauterize bhis bladder mucosa. I have made him NPO after midnight and arranged a type and screen just in case we do need to go to the OR tomorow (but I have not booked any procedure bat this time). wW will make that decision in the morning. Subjective Interval history since last seen: He has still had clots that required hand irrigation. Some dizziness when he gets up. Exam Narrative Exam Narrative: He looks comfortable at this time His vital signs are documented elsewhere. I hand irrigated his catheter for a few clots Objective Objective Clinical Data: Vital Signs Temperature 36.5 C 08/15/18 07:25 Temperature Source Tympanic 08/15/18 07:25 Pulse 84 08/15/18 07:25 Pulse Rhythm Regular 08/14/18 19:20 Respiratory Rate 18 08/15/18 07:25 Respiratory Effort Non-Labored 08/14/18 19:20 Respiratory Depth Normal 08/14/18 19:20 Respiratory Pattern Normal 08/14/18 19:20 Blood Pressure 130/89 08/15/18 07:25 Pulse Oximetry 99 08/15/18 07:25 Respiratory End-tidal CO2 28 08/09/18 15:55 Oxygen Delivery Method Room Air 08/15/18 07:25 Oxygen Flow Rate 0 08/15/18 07:25 Pain Level 0 08/15/18 07:25 Comment 08/12/18 04:00 Intake & Output 08/14/18 08/14/18 08/15/18 11:59 23:59 11:59 Intake Total 1000 / 3540 2540 / 3540 1050 / 1050 Output Total 500 / 4900 4400 / 4900 3500 / 3500 Balance 500 / -1360 -1860 / -1360 -2450 / -2450 Intake: Oral 1000 / 3540 2540 / 3540 1050 / 1050 Output: Urine 500 / 4900 4400 / 4900 3500 / 3500 Other: Urine Color Dark Red Dark Red Dark Red Urine Appearance Clots Hematuria Clots Clots Urine Odor Normal Comment pain with urination hand irrigated large clots Voiding Methods Toilet Laboratory Results WBC 8.42 k/cumm (4.4-10.8) 08/09/18 06:30 RBC 3.73 m/cumm (4.50-6.00) L 08/09/18 06:30 Hgb 8.3 g/dL (13.5-17.5) L 08/14/18 06:45 Hct 24.9 % (40.0-50.0) L 08/14/18 06:45 MCV 90.1 fL (80-95) 08/09/18 06:30 MCH 30.0 pg (27.0-33.0) 08/09/18 06:30 MCHC 33.3 g/dL (32.0-36.0) 08/09/18 06:30 RDW 13.6 % (11.8-14.1) 08/09/18 06:30 Plt Count 284 x1000/uL (130-400) 08/09/18 06:30 MPV 9.4 fL (8.0-11.0) 08/09/18 06:30 Immature Gran % 0.3 08/07/18 05:47 Neutrophils % 53.4 08/07/18 05:47 Lymphocytes % 31.1 08/07/18 05:47 Monocytes % 11.1 08/07/18 05:47 Eosinophils % 3.8 08/07/18 05:47 Basophils % 0.3 08/07/18 05:47 Absolute Neutrophils 3.21 k/cumm (1.2-6.7) 08/07/18 05:47 Absolute Lymphocytes 1.87 k/cumm (1.2-3.4) 08/07/18 05:47 Absolute Monocytes 0.67 k/cumm (0.11-0.7) 08/07/18 05:47 Absolute Eosinophils 0.23 k/cumm (0.0-0.7) 08/07/18 05:47 Absolute Basophils 0.02 k/cumm (0.0-0.2) 08/07/18 05:47 PT 11.0 sec (9.3-11.0) 08/07/18 05:47 INR 1.1 (1.0-3.5) 08/07/18 05:47 APTT 23.2 sec (21.0-31.4) 08/07/18 05:47 Sodium 137 mmol/L (136-145) 08/10/18 06:26 Potassium 3.8 mmol/L (3.5-5.1) 08/10/18 06:26 Chloride 105 mmol/L (98-107) 08/10/18 06:26 Carbon Dioxide 25.3 mmol/L (21.0-32.0) 08/10/18 06:26 Anion Gap 6.7 mmol/L (3-11) 08/10/18 06:26 BUN 20 mg/dL (7-18) H 08/10/18 06:26 Creatinine 1.10 mg/dL (0.70-1.30) 08/10/18 06:26 Estimated GFR/1.73 m2 >= 60.00 (mL/min/1.73m2) 08/10/18 06:26 Glucose 83 mg/dL (70-100) D 08/10/18 06:26 Calcium 8.4 mg/dL (8.5-10.1) L 08/10/18 06:26 Phosphorus 3.1 mg/dL (2.6-4.7) 08/07/18 05:47 Magnesium 2.0 mg/dL (1.8-2.4) 08/07/18 05:47 Total Bilirubin 0.8 mg/dL (0.2-1.0) 08/06/18 10:05 AST 28 U/L (15-37) 08/06/18 10:05 ALT 29 U/L (12-78) 08/06/18 10:05 Alkaline Phosphatase 57 U/L (46-116) 08/06/18 10:05 Total Protein 6.8 g/dL (6.4-8.2) 08/06/18 10:05 Albumin 3.3 g/dL (3.4-5.0) L 08/06/18 10:05 Patient ABO/Rh O Positive 08/06/18 10:05 Antibody Screen Negative 08/06/18 10:05
[2018-08-15] MEDS: Finasteride 5 MG TAB PO (09:04)
[2018-08-15] MEDS: Multivitamin w/Minerals TAB 1 TAB PO (09:04)
[2018-08-15] MEDS: Acetaminophen 325 MG TAB 650 MG PO (19:51)
[2018-08-16] VITALS (21 sets, daily range): BP systolic 119–167; BP diastolic 58–97; PULSE 61–97; RESP 12–19; TEMP 36.2–37.8; O2SAT 97–100
[2018-08-16] MEDS: Normal Saline Flush 10 ML SYR IVP ×2 (02:35→18:14)
[2018-08-16] MEDS: HYDROmorphone 2 MG/ML VIAL IVP ×2 (02:35→18:14)
[2018-08-16 05:02] LABS: Abs Immature Grans 0.02 k/cumm (0.0-0.09); Absolute Basophil Count 0.02 k/cumm (0.0-0.2); Absolute Eosinophil Count 0.15 k/cumm (0.0-0.7); Absolute Lymphocyte Count 1.35 k/cumm (1.2-3.4); Absolute Neutrophil Count 5.79 k/cumm (1.2-6.7); Basophils % 0.2; Eosinophils % 1.8; HCT 21.3 % (40.0-50.0); Immature Grans % 0.2; Lymphocytes % 16.6; Mean Corp. HGB Concentration 32.9 g/dL (32.0-36.0); Mean Corpuscular Hemoglobin 30.4 pg (27.0-33.0); Mean Corpuscular Volume 92.6 fL (80-95); Mean Platelet Volume 8.8 fL (8.0-11.0); Monocytes % 9.8; Neutrophils % 71.4; Platelet Count 303 x1000/uL (130-400); RBC Distribution Width 14.3 % (11.8-14.1); White Blood Cell Count 8.13 k/cumm (4.4-10.8)
[2018-08-16 05:15] LABS: ALT 20 U/L (12-78); AST 17 U/L (15-37); Albumin 2.5 g/dL (3.4-5.0); Alkaline Phosphatase 51 U/L (46-116); Anion Gap 10.7 mmol/L (3-11); BUN 17 mg/dL (7-18); Bilirubin, Total 0.4 mg/dL (0.2-1.0); CO2 24.3 mmol/L (21.0-32.0); CREATININE 1.16 mg/dL (0.70-1.30); Calcium 8.3 mg/dL (8.5-10.1); Chloride 105 mmol/L (98-107); Glucose 108 mg/dL (70-100); Potassium 3.6 mmol/L (3.5-5.1); Sodium 140 mmol/L (136-145); Total Protein 6.2 g/dL (6.4-8.2)
[2018-08-16 05:22] LABS: Anisocytosis 1+; Diff Comment RBC Morph Reviewed; Hypochromasia 2+; Microcytosis 1+; Poikilocytes 2+; Polychromasia Present
--- NOTE | 2018-08-16 09:04 | W.PM.PROGNOT ---
Date of Service Date of service: 08/16/18 Time of Service: 09:04 Assessment and Plan (1) Clot retention of urine: Current visit: Yes Status: Acute With the continued symptoms and drop in the Hgb, we will proceed with repeat cystoscopy, clot evacuation and vaporization of the prostate mucosa. Subjective Interval history since last seen: He had intermittent catheter occlusion overnight and his Hgb dropped again this AM. He has received 1 unit PRBC for a Hgb of 7. he has no chest pain or shortness of breath Exam Narrative Exam Narrative: His vital signs are documented elsewhere in chart His urine is actually clear this AM He is awake and alert Objective Objective Clinical Data: Abnormal lab results 08/15/18 08/16/18 08/16/18 Range/Units 12:48 04:55 04:55 RBC 2.30 L (4.50-6.00) m/cumm Hgb 7.0 L (13.5-17.5) g/dL Hct 21.3 L (40.0-50.0) % RDW 14.3 H (11.8-14.1) % Absolute Monocytes 0.80 H (0.11-0.7) k/cumm Glucose 108 H (70-100) mg/dL Calcium 8.3 L (8.5-10.1) mg/dL Total Protein 6.2 L (6.4-8.2) g/dL Albumin 2.5 L (3.4-5.0) g/dL Crossmatch See Detail Vital Signs Temperature 36.8 C 08/16/18 08:07 Temperature Source Tympanic 08/16/18 07:49 Pulse 87 08/16/18 08:07 Pulse Rhythm Regular 08/16/18 07:46 Respiratory Rate 16 08/16/18 08:07 Respiratory Effort 08/16/18 07:46 Respiratory Depth Normal 08/16/18 07:46 Respiratory Pattern Normal 08/16/18 07:46 Blood Pressure 150/67 H 08/16/18 08:07 Pulse Oximetry 100 08/16/18 08:07 Respiratory End-tidal CO2 28 08/09/18 15:55 Oxygen Delivery Method Room Air 08/16/18 08:07 Oxygen Flow Rate 0 08/16/18 08:07 Pain Level 0 08/15/18 07:25 Comment 08/12/18 04:00 Intake & Output 08/15/18 08/15/18 08/16/18 11:59 23:59 11:59 Intake Total 19590 360 / 2320 Output Total 3500 / 4900 1400 / 4900 650 / 650 Balance -1540 / -2580 -1040 / -2580 -640 / -640 Intake: IV Oral 1959 / 0 360 / 2320 Output: Urine 3500 / 4900 1400 / 4900 650 / 650 Other: Urine Color Dark Red Dark Red Dark Red Urine Appearance Hematuria Clear Hematuria Clots Clots Comment 2 very small clots, no bladder distension noted Stool Size Large Stool Characteristics Soft Formed Laboratory Results WBC 8.13 k/cumm (4.4-10.8) 08/16/18 04:55 RBC 2.30 m/cumm (4.50-6.00) L 08/16/18 04:55 Hgb 7.0 g/dL (13.5-17.5) L 08/16/18 04:55 Hct 21.3 % (40.0-50.0) L 08/16/18 04:55 MCV 92.6 fL (80-95) 08/16/18 04:55 MCH 30.4 pg (27.0-33.0) 08/16/18 04:55 MCHC 32.9 g/dL (32.0-36.0) 08/16/18 04:55 RDW 14.3 % (11.8-14.1) H 08/16/18 04:55 Plt Count 303 x1000/uL (130-400) 08/16/18 04:55 MPV 8.8 fL (8.0-11.0) 08/16/18 04:55 Immature Gran % 0.2 08/16/18 04:55 Neutrophils % 71.4 08/16/18 04:55 Lymphocytes % 16.6 08/16/18 04:55 Monocytes % 9.8 08/16/18 04:55 Eosinophils % 1.8 08/16/18 04:55 Basophils % 0.2 08/16/18 04:55 Absolute Neutrophils 5.79 k/cumm (1.2-6.7) 08/16/18 04:55 Absolute Lymphocytes 1.35 k/cumm (1.2-3.4) 08/16/18 04:55 Absolute Monocytes 0.80 k/cumm (0.11-0.7) H 08/16/18 04:55 Absolute Eosinophils 0.15 k/cumm (0.0-0.7) 08/16/18 04:55 Absolute Basophils 0.02 k/cumm (0.0-0.2) 08/16/18 04:55 Differential Comment Rbc morph reviewed 08/16/18 04:55 RBC Morphology See below 08/16/18 04:55 Polychromasia Present 08/16/18 04:55 Hypochromasia 2+ 08/16/18 04:55 Poikilocytosis 2+ 08/16/18 04:55 Anisocytosis 1+ 08/16/18 04:55 Microcytosis 1+ 08/16/18 04:55 PT 11.0 sec (9.3-11.0) 08/07/18 05:47 INR 1.1 (1.0-3.5) 08/07/18 05:47 APTT 23.2 sec (21.0-31.4) 08/07/18 05:47 Sodium 140 mmol/L (136-145) 08/16/18 04:55 Potassium 3.6 mmol/L (3.5-5.1) 08/16/18 04:55 Chloride 105 mmol/L (98-107) 08/16/18 04:55 Carbon Dioxide 24.3 mmol/L (21.0-32.0) 08/16/18 04:55 Anion Gap 10.7 mmol/L (3-11) 08/16/18 04:55 BUN 17 mg/dL (7-18) 08/16/18 04:55 Creatinine 1.16 mg/dL (0.70-1.30) 08/16/18 04:55 Estimated GFR/1.73 m2 >= 60.00 (mL/min/1.73m2) 08/16/18 04:55 Glucose 108 mg/dL (70-100) H 08/16/18 04:55 Calcium 8.3 mg/dL (8.5-10.1) L 08/16/18 04:55 Phosphorus 3.1 mg/dL (2.6-4.7) 08/07/18 05:47 Magnesium 2.0 mg/dL (1.8-2.4) 08/07/18 05:47 Total Bilirubin 0.4 mg/dL (0.2-1.0) 08/16/18 04:55 AST 17 U/L (15-37) 08/16/18 04:55 ALT 20 U/L (12-78) 08/16/18 04:55 Alkaline Phosphatase 51 U/L (46-116) 08/16/18 04:55 Total Protein 6.2 g/dL (6.4-8.2) L 08/16/18 04:55 Albumin 2.5 g/dL (3.4-5.0) L 08/16/18 04:55 Patient ABO/Rh O Positive 08/15/18 12:48 Antibody Screen Negative 08/15/18 12:48 Crossmatch See Detail 08/15/18 12:48
[2018-08-16] MEDS: Finasteride 5 MG TAB PO (09:07)
[2018-08-16] MEDS: Multivitamin w/Minerals TAB 1 TAB PO (09:07)
[2018-08-16] MEDS: Lactated Ringers 1,000 ML 100 ML IV (12:07)
[2018-08-16] MEDS: Lidocaine 2% Jelly 6 ML SYR (12:34)
--- NOTE | 2018-08-16 14:05 | ROE_ITS ---
DATE OF OPERATION: August 16, 2018 PREOPERATIVE DIAGNOSIS: Clot retention. 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 PROCEDURE: Cystoscopy, vaporization of prostatic mucosa, cauterization of bladder mucosa. SURGEON: David Bonner M.D. ANESTHESIA: Spinal. COMPLICATIONS: None. ESTIMATED BLOOD LOSS: <100 cc HISTORY: This is an 78-year-old gentleman who has a history of prostate cancer. He was treated with radiation therapy. Over the past two months he has had multiple episodes of bleeding and clot retention. He has not responded to medical management with saline irrigation or Amicar irrigation. He presents now for vaporization of the prostatic mucosa and cauterization of the bladder mucosa. OPERATIVE REPORT: The patient was brought to the Operating Room on 08/16/18. After successful induction of spinal anesthesia, he was placed in the dorsal lithotomy position. His indwelling catheter was removed. His genitalia was prepped and draped. A 24 K[place] resectoscope sheath was passed through the urethra into the bladder. We used a visual obturator and inspected the urethra with a 30-degree lens. The pendulous, bulbous, and membranous urethras all appeared normal, with no strictures. The prostatic urethra showed some necrotic tissue as well as areas of hemorrhagic mucosa, but no active bleeding was seen. The bladder neck was entered and the bladder mucosa was inspected. Again, a moderate amount of necrotic debris was found but no stones or tumors. The bladder mucosa was heavily hemorrhagic and erythematous. We have previously biopsied both bladder and prostatic mucosa which confirmed the finding of reactive urothelium with underlying radiation changes. We then used a plasma button to cauterize all visible bladder mucosa. We likewise vaporized the prostatic mucosa and cauterized any visible blood vessels. All necrotic tissue was evacuated. No tissue was sent for pathology. At the completion of the procedure, the prostatic mucosa and bladder mucosa appeared quite hemostatic with no active bleeding. I filled the bladder with irrigant and passed a 24 K[place]ili hematuria catheter through the urethra into the bladder. The catheter balloon was inflated with 30 cc of sterile water. Continuous bladder irrigation with saline was then begun. The patient tolerated this procedure well with no complications. We will plan on running the continuous bladder irrigation overnight. We will consider a voiding trial or discharging the patient with a catheter in the next 24 to 48 hours. cc: Lizette Zamora M.D.
--- NOTE | 2018-08-16 15:08 | NUR.NOTE ---
Nursing Note: Patient returns to the floor at 1415. He is made comfortable in bed, perez checked and cbi is flowing. neuros checked every 15 minutes, at 1500 he has feeling just below the hips, he was repositioned to his right side at 1500 as he can still not move himself,. patients chief complaint is that he cannot move himself., and he feels detached from his body
--- NOTE | 2018-08-16 15:44 | PDOC.CMPRO ---
- If Service Date Differs Date of service: 08/16/18 Time of Service: 15:44 Care Management Progress Note S/O: Romel returned to the OR today for cystoscope.No change in status today. His Hgb and Hct had dropped he did receive a transfusion of PBC's. Anticipate he will continue with an indwelling cath at this time. A:Romel is a 78 year old male admitted with hematuria post cystoscopy with . P:Romel will return home when medically ready per provider. He will follow up with and his PCP as directed. Anticipate no home health services unless he returns home with an indwelling perez and will need additional support at home. His friend Lise will transport him home at time of discharge via private car. CM will continue to offer support to patient and care team regarding discharge planning and disposition.
[2018-08-16] MEDS: Sulfameth/Trimeth DS TAB 1 TAB PO (20:08)
[2018-08-17] MEDS: Lactated Ringers 1,000 ML 100 ML IV (00:01)
[2018-08-17 04:01] VITALS: BP 152/84; PULSE 101; RESP 18; TEMP 36.5; O2SAT 98
[2018-08-17 05:19] LABS: HCT 28.7 % (40.0-50.0); HGB 9.7 g/dL (13.5-17.5)
[2018-08-17 07:50] VITALS: BP 157/85; PULSE 83; RESP 18; TEMP 37.5; O2SAT 98
--- NOTE | 2018-08-17 07:55 | W.PM.PROGNOT ---
Date of Service Date of service: 08/17/18 Time of Service: 07:55 Assessment and Plan (1) Clot retention of urine: Current visit: Yes Status: Acute We will discontinue his bladder irrigation and his IV fluids. I have encouraged him to get up and move around this morning. I would expect that we should be able to discharge him later today. Not sure if I would do so with the catheter in place or give him a voiding trial before he leaves. Subjective Interval history since last seen: His urine has remained clear, but he has had burning at the tip of the penis He is tolerating p.o. meds. Exam Narrative Exam Narrative: He looks well. His vital signs are documented elsewhere in the chart His urine is clear with no gross blood. His hemoglobin has come up appropriately with 2 units of packed red blood cells Objective Objective Clinical Data: Abnormal lab results 08/15/18 08/17/18 Range/Units 12:48 05:10 Hgb 9.7 L D (13.5-17.5) g/dL Hct 28.7 L D (40.0-50.0) % Crossmatch See Detail Vital Signs Temperature 36.5 C 08/17/18 04:01 Temperature Source Tympanic 08/17/18 04:01 Pulse 101 H 08/17/18 04:01 Pulse Rhythm Regular 08/16/18 21:31 Respiratory Rate 18 08/17/18 04:01 Respiratory Effort 08/16/18 21:31 Respiratory Depth Normal 08/16/18 21:31 Respiratory Pattern Normal 08/16/18 21:31 Blood Pressure 152/84 H 08/17/18 04:01 Pulse Oximetry 98 08/17/18 04:01 Respiratory End-tidal CO2 24 08/16/18 13:53 Oxygen Delivery Method Room Air 08/17/18 04:01 Oxygen Flow Rate 0 08/17/18 04:01 Pain Level 8 08/16/18 18:14 Comment 08/12/18 04:00 Intake & Output 08/16/18 08/16/18 08/17/18 11:59 23:59 11:59 Intake Total 341 / 1799.000 944.667 / 1799.000 513.333 / 513.333 Output Total 650 / 1100 450 / 1100 Balance -309 / 699.000 494.667 / 699.000 513.333 / 513.333 Intake: IV 10 / 1110.000 586.667 / 1110.000 513.333 / 513.333 Oral 60 / 60 Blood Product 331 / 571 240 / 571 Rbc Leuko Reduced Unit 331 / 331 [id number] Rbc Leuko Reduced Unit 240 / 240 [id number] Other 58 / 58 Rbc Leuko Reduced Unit 58 / 58 [id number] Output: Urine 650 / 1100 450 / 1100 Other: Urine Color Dark Red Yellow Yellow Urine Appearance Hematuria Clear Comment patient c/o pain an fullness in the abd Emesis Description None Laboratory Results WBC 8.13 k/cumm (4.4-10.8) 08/16/18 04:55 RBC 2.30 m/cumm (4.50-6.00) L 08/16/18 04:55 Hgb 9.7 g/dL (13.5-17.5) L D 08/17/18 05:10 Hct 28.7 % (40.0-50.0) L D 08/17/18 05:10 MCV 92.6 fL (80-95) 08/16/18 04:55 MCH 30.4 pg (27.0-33.0) 08/16/18 04:55 MCHC 32.9 g/dL (32.0-36.0) 08/16/18 04:55 RDW 14.3 % (11.8-14.1) H 08/16/18 04:55 Plt Count 303 x1000/uL (130-400) 08/16/18 04:55 MPV 8.8 fL (8.0-11.0) 08/16/18 04:55 Immature Gran % 0.2 08/16/18 04:55 Neutrophils % 71.4 08/16/18 04:55 Lymphocytes % 16.6 08/16/18 04:55 Monocytes % 9.8 08/16/18 04:55 Eosinophils % 1.8 08/16/18 04:55 Basophils % 0.2 08/16/18 04:55 Absolute Neutrophils 5.79 k/cumm (1.2-6.7) 08/16/18 04:55 Absolute Lymphocytes 1.35 k/cumm (1.2-3.4) 08/16/18 04:55 Absolute Monocytes 0.80 k/cumm (0.11-0.7) H 08/16/18 04:55 Absolute Eosinophils 0.15 k/cumm (0.0-0.7) 08/16/18 04:55 Absolute Basophils 0.02 k/cumm (0.0-0.2) 08/16/18 04:55 Differential Comment Rbc morph reviewed 08/16/18 04:55 RBC Morphology See below 08/16/18 04:55 Polychromasia Present 08/16/18 04:55 Hypochromasia 2+ 08/16/18 04:55 Poikilocytosis 2+ 08/16/18 04:55 Anisocytosis 1+ 08/16/18 04:55 Microcytosis 1+ 08/16/18 04:55 PT 11.0 sec (9.3-11.0) 08/07/18 05:47 INR 1.1 (1.0-3.5) 08/07/18 05:47 APTT 23.2 sec (21.0-31.4) 08/07/18 05:47 Sodium 140 mmol/L (136-145) 08/16/18 04:55 Potassium 3.6 mmol/L (3.5-5.1) 08/16/18 04:55 Chloride 105 mmol/L (98-107) 08/16/18 04:55 Carbon Dioxide 24.3 mmol/L (21.0-32.0) 08/16/18 04:55 Anion Gap 10.7 mmol/L (3-11) 08/16/18 04:55 BUN 17 mg/dL (7-18) 08/16/18 04:55 Creatinine 1.16 mg/dL (0.70-1.30) 08/16/18 04:55 Estimated GFR/1.73 m2 >= 60.00 (mL/min/1.73m2) 08/16/18 04:55 Glucose 108 mg/dL (70-100) H 08/16/18 04:55 Calcium 8.3 mg/dL (8.5-10.1) L 08/16/18 04:55 Phosphorus 3.1 mg/dL (2.6-4.7) 08/07/18 05:47 Magnesium 2.0 mg/dL (1.8-2.4) 08/07/18 05:47 Total Bilirubin 0.4 mg/dL (0.2-1.0) 08/16/18 04:55 AST 17 U/L (15-37) 08/16/18 04:55 ALT 20 U/L (12-78) 08/16/18 04:55 Alkaline Phosphatase 51 U/L (46-116) 08/16/18 04:55 Total Protein 6.2 g/dL (6.4-8.2) L 08/16/18 04:55 Albumin 2.5 g/dL (3.4-5.0) L 08/16/18 04:55 Patient ABO/Rh O Positive 08/15/18 12:48 Antibody Screen Negative 08/15/18 12:48 Crossmatch See Detail 08/15/18 12:48
[2018-08-17 08:05] VITALS: O2SAT 97
[2018-08-17] MEDS: Finasteride 5 MG TAB PO (09:04)
[2018-08-17] MEDS: Lidocaine 2% Jelly 6 ML SYR TP (09:04)
[2018-08-17] MEDS: Sulfameth/Trimeth DS TAB 1 TAB PO (09:04)
[2018-08-17] MEDS: Multivitamin w/Minerals TAB 1 TAB PO (09:04)
--- NOTE | 2018-08-17 10:18 | W.PM.DS.N ---
DS: Diagnosis Discharge Diagnosis (1) Clot retention of urine: Status: Acute Discharge Plan Disposition Patient Disposition: HOME Condition: Improving Discharge Details Reason For Visit: HEMATURIA Admit Date/Time: 08/07/18 13:56 Admit Provider: David Bonner Attending Provider: Thor Moore Primary Care Provider: Lizette Zamora V Hospital Course Hospital Course: The patient was admitted with gross hematuria and clots. Initially an irrigating catheter was placed and continuous bladder irrigation with saline was begun. Hand irrigation was used to clear any clots. He was then taken to the operating room on 08/09/2018. We removed many clots from his bladder. We did not find any active bleeding, but he did have hemorrhagic mucosal changes both in the bladder and the prostate. We took transurethral biopsies of both of these areas to make sure we were not missing any underlying pathology. We then started him on Amicar bladder irrigations. His urine began clearing, but he had a repeat bleed and his hemoglobin decreased to 7. He was taken back to the operating room where he underwent vaporization of the prostatic mucosa and cauterization of the bladder mucosa. He was given 2 units of packed red blood cells and is he low been ian back up to 9.7. His urine cleared with saline irrigation. He is visit being discharged with his Perez catheter in place about 24 hours after his last surgical procedure. At the time of his discharge, he is quite comfortable. He is complaining of some pain at the tip of the penis. His urine is clear. His lungs are clear. His cardiac exam and abdominal exams are normal. Home Meds and New Rx's Prescriptions: New sulfamethoxazole-trimethoprim [Bactrim DS] 800-160 mg tablet 1 tab PO BID Qty: 10 RF: 0 tramadol [Ultram] 50 mg tablet 50 mg PO Q6H PRN (Reason: pain) Qty: 20 RF: 0 lidocaine HCl [Glydo] 2 % jelly in applicator 1 applic TP TID PRN (Reason: pain) Qty: 60 RF: 0 Continued finasteride 5 mg tablet 5 mg PO DAILY Qty: 30 RF: 12 docusate sodium [Colace] 100 mg capsule 100 mg PO BID Qty: 30 RF: 0 Discontinued oxybutynin chloride 5 mg tablet 5 mg PO TID PRN (Reason: bladder spasms) Qty: 20 RF: 0 Discharge Instructions Additional Instructions: Perez to large drainage bag Catheter plug to irrigation port F/U Monday or for catheter removal Referrals: David Bonner MD [ [facility] STAFF PHYSICIAN] - 08/10/18 7:30 am (Follow up after hospitalization for CBI) Activity:: Activity as Tolerated Equipment/Supplies:: perez to drainage bag Diet:: As Tolerated Discharge Orders Discharge Orders: Discharge Order (Routine); Ordered 08/17/18 Ordered By: David Bonner Exam Narrative Exam Narrative: He is comfortable and ambulating. He does not appear septic or toxic. His vital signs are documented elsewhere in the chart. His lungs are clear. Cardiac exam shows a regular rate and rhythm. His abdomen is soft with no abdominal distention. His Perez catheter is in place and is draining clear urine. He is awake, alert and oriented. DS: Data Vitals/I&O Vitals and I&O: Vital Signs Temperature 37.5 C 08/17/18 07:50 Temperature Source Tympanic 08/17/18 07:50 Pulse 83 08/17/18 07:50 Pulse Rhythm Regular 08/17/18 09:58 Respiratory Rate 18 08/17/18 07:50 Respiratory Effort 08/17/18 09:58 Respiratory Depth Normal 08/17/18 09:58 Respiratory Pattern Normal 08/17/18 09:58 Blood Pressure 157/85 H 08/17/18 07:50 Pulse Oximetry 98 08/17/18 07:50 Respiratory End-tidal CO2 24 08/16/18 13:53 Oxygen Delivery Method Room Air 08/17/18 07:50 Oxygen Flow Rate 0 08/17/18 07:50 Pain Level 8 08/16/18 18:14 Comment 08/12/18 04:00 Intake & Output 08/16/18 08/16/18 08/17/18 11:59 23:59 11:59 Intake Total 341 / 1799.000 944.667 / 1799.000 753.333 / 753.333 Output Total 650 / 1100 450 / 1100 600 / 600 Balance -309 / 699.000 494.667 / 699.000 153.333 / 153.333 Intake: IV 10 / 1110.000 586.667 / 1110.000 513.333 / 513.333 Oral 60 / 60 240 / 240 Blood Product 331 / 571 240 / 571 Rbc Leuko Reduced Unit 331 / 331 [id number] Rbc Leuko Reduced Unit 240 / 240 [id number] Other 58 / 58 Rbc Leuko Reduced Unit 58 / 58 [id number] Output: Urine 650 / 1100 450 / 1100 600 / 600 Other: Urine Color Dark Red Yellow Dark Comfort Urine Appearance Hematuria Clear Cloudy Comment patient c/o pain an fullness in the abd streaks of blood noted in the catheter tube, other nelson, clear comfort urine, no distension or abdominal pain, just c/o burning at the meatus Emesis Description None Labs on day of discharge: Labs from last 24 hours 08/17/18 08/15/18 05:10 12:48 Hgb 9.7 L D Hct 28.7 L D Patient ABO/Rh O Positive Antibody Screen Negative Crossmatch See Detail PFSH Medical History Urethral stricture (Resolved) Prostate cancer (Chronic) Gross hematuria (Acute) Neoplasm of skin (Resolved 08/12/13) Age-related macular degeneration (Chronic 08/12/13) Macular degeneration (Chronic) Surgical History H/O cystoscopy (Chronic) History of permanent cardiac pacemaker placement (Chronic) Social History Smoking/Tobacco Use Status: Former Tobacco Use alcohol intake: current alcohol intake frequency: holidays/special occasions only Alcohol type: beer and wine substance use type: does not use
[2018-08-17 11:40] VITALS: BP 143/90; PULSE 87; RESP 18; TEMP 37.3; O2SAT 97
--- NOTE | 2018-08-17 11:50 | PDOC.CMDIS ---
- If Service Date Differs Date of service: 08/17/18 Time of Service: 11:51 LACE Index Scoring Tool - Questions: Length of Stay (in days): 7 - 13 Acuity (Admit via E.D.?): Yes Comorbidities: Any Tumor E.D. Visits: 7 - Answers: Total Score: 14 Risk of Readmission: High Risk Care Management Discharge Reason for Hospitalization: Gross Hematuria, and CBI status post cystoscopy x 4 days ago. Discharge Plan: Romel will return home today with new home health services nursing. CM contacted office and spoke with RN she will have complete the orders and fax them to home health.CM contacted services and notified of new referral. Romel will transfer home via private car with his friend Pepper. Patient/Family Education Needs: Discharge education, limitations and follow up plan of care. Services Needed at Discharge: Home Health Care Services
== END 2018-08-17 12:55 | disposition home or self-care (01) | DRG 667 ==
LOC: ER 13:46 → MS 15:32
PROVIDERS: Admitting Provider Surgery; Emergency Provider Student in an Organized Health Care Education/Training Program; PCP Family Medicine; Visit Provider Urology
PROC: 0TJB8ZZ Inspection of Bladder, Via Natural or Artificial Opening Endoscopic (ICD-10-PCS; CPT 52000; principal; 2018-08-09 13:00)
PROC: 0VT08ZZ Resection of Prostate, Via Natural or Artificial Opening Endoscopic (ICD-10-PCS; CPT 52601; principal; 2018-08-16 12:30)
DX: N30.41 Irradiation cystitis with hematuria (principal); R33.8 Other retention of urine; N34.2 Other urethritis; T83.091A Other mechanical complication of indwelling urethral catheter, initial encounter; Z92.3 Personal history of irradiation; Z85.46 Personal history of malignant neoplasm of prostate; R42 Dizziness and giddiness; H35.30 Unspecified macular degeneration
CPT/HCPCS: 36415; 36430; 51700; 52001; 52214; 52500; 52601; 76770; 80048; 80053; 85027; 86850; 86900; 86901; 86920; 88305; 99219; 99223; 99231; 99232; 99233; 99238; 99285; NC; 83735; 84100; 85014; 85018; 85025; 85610; 85730; G0378; J0690; J1885; J2250; J3010; P9016

== ENCOUNTER → 2018-08-09 14:03 | Outpatient (BNVA) | payer MEDICARE, BC, SELFPAY | PROVIDERS: PCP Family Medicine; Visit Provider Urology | DX: R69 Illness, unspecified (principal) ==

== ENCOUNTER → 2018-08-20 07:51 | Outpatient (BNVA) | payer MEDICARE, BC, SELFPAY | PROVIDERS: PCP Family Medicine; Visit Provider Nurse Practitioner Gerontology | DX: R33.8 Other retention of urine (principal); C61 Malignant neoplasm of prostate | CPT/HCPCS: 99213 ==